=== PATIENT | male | born 1950 | race Caucasian/White ===

== ENCOUNTER 2019-09-07 02:18 | Emergency (ER) | payer MEDICARE, OTHER, SELFPAY ==
--- NOTE | ~2019-09-07 | CT_ITS ---
EXAMINATION: XR abdomen/kub 1V, CT abdomen pelvis wo con DATE: 09/07/2019 02:56 INDICATION: Nephrolithiasis presenting with left flank pain. TECHNIQUE: 1. Computed tomography (CT) of the abdomen and pelvis was performed without intravenous contrast. Aut omated exposure control and iterative reconstruction technique were employed. The dose-length product was 350.83 mGy-cm. 2. Supine AP view of the abdomen and pelvis were obtained. COMPARISON: CT dated 06/21/2015 FINDINGS: CT: Lung bases are clear. Heart size is normal. No pericardial or pleural effusion. Median sternotomy and coronary artery bypass grafting. There is also stenting along the right coronary artery. Liver, gall bladder, spleen, pancreas and bilateral adrenal glands are normal. There is moderate colonic divertic ulosis with a sigmoid predominance. There is no adjacent inflammatory change to suggest diverticulit is. Small bowel and appendix are normal. Small fat-containing left inguinal hernia. No free intraperi toneal gas or fluid. No pathologically enlarged abdominal or pelvic lymphadenopathy. There is calcifi ed atherosclerosis of the aorta and many of the other arteries. Mild lumbar dextrocurvature with mild spondylosis. Left iliac bone island. Couple 1-2 mm nonobstructing stones in the right kidney. 1 mm stone at the upper pole of the left kid cintia. 3 mm at least partially obstructing stone at the distal left ureter approximately 2 cm from the ureterovesicular junction with mild left hydroureteronephrosis. Bladder is normal. KUB: The previously noted nephrolithiasis is unable to be clearly distinguished on the plain radiographs l ikely due to small size of the stones as well as the superimposed multiple pattern of gas and stool i n the colon. Multiple phleboliths in the pelvis. IMPRESSION: 1. 3 mm at least partially obstructing distal left ureteral stone with mild left hydroureteronephrosi s. Nonobstructing right nephrolithiasis. 2. Small fat-containing left inguinal hernia with change of likely prior inguinal hernia repair. Reviewed, dictated and finalized at location A. IMPRESSION: 1. 3 mm at least partially obstructing distal left ureteral stone with mild lef t hydroureteronephrosis. Nonobstructing right nephrolithiasis. 2. Small fat-containing left inguinal hernia with change of likely prior inguin al hernia repair.
[2019-09-07 02:24] VITALS: BP 172/88; PULSE 52; RESP 20; TEMP 35.8; O2SAT 99
--- NOTE | 2019-09-07 02:28 | ED.ABDPAIN ---
HPI - Abdominal Pain General Chief Complaint: Abdominal Pain Stated Complaint: kidney stone Time Seen by Provider: 09/07/19 02:23 Source: patient and RN notes reviewed Mode of arrival: other Limitations: no limitations History of Present Illness HPI narrative: Pt is a 68 y/o male who presents to the ED with c/o 5/10 left flank pain that radiates to his left testicle that began an hour ago. Pt states that his sx woke him up from his sleep. Pt has a hx of kidney stones and he states his last kidney stone was about 1.5 years ago. Pt denies taking any pain medication. Pt last urinated [employer]. Pt saw a urologist at [place] for his last kidney stone, but he denies seeing a urologist consistently. Pt denies nausea, vomiting, fever, and testicular swelling. Pt is a taking Plavix. MD elicited complaint: flank pain Pertinent past history: kidney stones and myocardial infarction Onset (ago): hour(s) (1) Pain Consistency: constant Location: L flank Severity: moderate Pain scale (0-10): 5 Radiation: other (left testicle) Related Data Allergies Allergy/AdvReac Type Severity Reaction Status Date / Time mercury (elemental) Allergy Unknown Verified 11/04/16 21:13 Review of Systems Review of Systems: All systems reviewed & are unremarkable except as noted in HPI and below Constitutional: Constitutional: Denies fever(s) Gastrointestinal: Gastrointestinal: Denies nausea and Denies vomiting Genitourinary: Genitourinary: Reports flank pain (left, radiates to his left testicle) and Denies scrotal swelling PMFSH Past Medical History Medical History (Updated 09/07/19 @ 03:25 by Liliane Weber MD) GERD (gastroesophageal reflux disease) History of torn meniscus of left knee Hyperlipidemia Inguinal hernia Kidney stone Myocardial infarction Surgical History Surgical History (Updated 09/07/19 @ 02:45 by Jaclyn Do) H/O inguinal hernia repair History of cardiac catheterization History of orthopedic surgery left thumb revision, left knee meniscus repair Hx of CABG Status post carotid surgery Social History Social History (Updated 09/07/19 @ 02:46 by Jaclyn Do) Smoking status: Never smoker Exam Narrative: Exam Narrative: GENERAL: Well-appearing, well-nourished, and in no acute distress. HEAD: Normocephalic, atraumatic EYES: PERRLA and EOMI, conjunctiva clear without discharge THROAT:Mucous membranes moist, NECK: Supple, without lymphadenopathy or mass RESPIRATORY: No respiratory distress, Airway patent, Respirations non-labored, Clear to auscultation without rales, rhonchi or wheeze HEART: Regular rate and rhythm. No murmur heard. Normal peripheral pulses. ABDOMEN: Soft, LLQ tenderness, nondistended, normal active bowel sounds. No masses. No rebound or guarding, No organomegaly. EXTREMITIES: No edema, normal strength with full range of motion. SKIN: Warm, dry, normal color without rash NEURO: Alert and oriented x3. CN 2-12 grossly intact. No focal deficits. PSYCH: Normal mood and affect. : Testes: Testes normal Back/Spine/Pelvis: Back: no CVA tenderness Course Reevaluation(s) Reevaluation #1: I have discsused with patient that CT shows small distal stone. he will be given flomax. Date: 09/07/19 Time: 03:21 Vital Signs Vital signs: Vital Signs Temperature 96.5 F L 09/07/19 02:24 Pulse Rate 52 L 09/07/19 02:24 Respiratory Rate 20 09/07/19 02:24 Blood Pressure 172/88 H 09/07/19 02:24 Pulse Oximetry 99 09/07/19 02:24 Temperature 96.5 F L 09/07/19 02:24 Pulse Rate 61 09/07/19 03:37 Respiratory Rate 17 09/07/19 03:37 Blood Pressure 156/80 H 09/07/19 03:37 Pulse Oximetry 99 09/07/19 03:37 MDM - Abdominal Pain Differential Diagnosis Differential diagnosis: Likely diverticulitis, small bowel obstruction and other (renal colic) Lab Data Attestation: I reviewed the patient's lab results. Result diagrams: 09/07/19 02:33 09/07/19 02:33
[2019-09-07 02:42] LABS: Basophils Absolute Auto 0.1 K/mm3 (0.0-0.1); Basophils Percent Auto 1.1 % (0.2-1.2); Eosinophils Absolute Auto 0.2 K/mm3 (0-0.3); Hematocrit 46.6 % (42.0-52.0); Hemoglobin 15.4 g/dL (14.0-18.0); Immature Granulocyte Absolute 0.03 K/mm3 (0.00-0.031); Immature Granulocyte Percent A 0.7 % (0-0.5); Lymphocytes Absolute Auto 1.59 K/mm3 (0.9-3.2); Lymphocytes Percent Auto 34.9 % (18.3-44.2); Mean Corpuscular Hemoglobin 30.6 pg (26-34); Mean Corpuscular Volume 92.5 fl (80-100); Mean Platelet Volume 9.5 fl (7.4-10.4); Monocytes Absolute Auto 0.6 K/mm3 (0.1-0.6); Monocytes Percent Auto 13.6 % (2.6-8.5); Neutrophils Absolute Auto 2.1 K/mm3 (1.3-6.7); Neutrophils Percent Auto 45.7 % (45.5-73.1); Platelet Count Result 236 k/mm3 (150-375); Red Blood Count 5.04 M/mm3 (4.6-6.20); Red Cell Distribution Width 13.2 % (11.5-14.5); White Blood Count 4.6 K/mm3 (4.5-10.0)
[2019-09-07 02:53] LABS: Blood Urea Nitrogen 21 mg/dL (9-20); Calcium 9.7 mg/dL (8.4-10.2); Carbon Dioxide 33 mmol/L (22-30); Chloride 102 mmol/L (98-107); Estimated CRCL calculation 58 ml/min; Estimated Glomerular Filt Rate > 60; Glucose 93 mg/dL (75-110); Potassium 3.7 mmol/L (3.4-5.0); Sodium 139 mmol/L (137-145)
[2019-09-07 03:16] LABS: Add Urine Microscopic? YES; Appearance Urine Cloudy (Clear); Bacteria Urine Trace /hpf; Bilirubin Urine Negative (Negative); Blood Urine 3+ (Negative); Calcium Oxalate Crystals Urine Present /hpf; Color Urine Yellow (Yellow); Glucose Urine UA Negative (Negative); Ketones Urine Negative (Negative); Leukocyte Esterase Ur Negative LEU/UL (Negative); Mucus Urine Few /lpf; Nitrate Urine Negative (Negative); Protein Urine 1+ mg/dL (Negative); RBC Urine >75 /hpf (0-2); Specific Grav Ur 1.028 (1.001-1.035); Urobilinogen Urine Negative mg/dL (<2.0)
[2019-09-07] MEDS: TAMSULOSIN HCL 0.4 MG CAPSULE PO (03:36)
[2019-09-07 03:37] VITALS: BP 156/80; PULSE 61; RESP 17; O2SAT 99
== END 2019-09-07 03:37 | disposition home or self-care (01) ==
PROVIDERS: Emergency Provider General Practice
DX: N13.2 Hydronephrosis with renal and ureteral calculous obstruction (principal); I25.2 Old myocardial infarction; K21.9 Gastro-esophageal reflux disease without esophagitis; E78.5 Hyperlipidemia, unspecified; I25.10 Atherosclerotic heart disease of native coronary artery without angina pectoris; Z87.442 Personal history of urinary calculi; Z79.02 Long term (current) use of antithrombotics/antiplatelets; Z95.1 Presence of aortocoronary bypass graft
CPT/HCPCS: 36415; 74018; 74176; 80048; 81001; 85025; 87086; 96365; 99284; A9270; J0131

== ENCOUNTER 2020-02-02 13:38 | Emergency (ER) | payer MEDICARE, OTHER, SELFPAY ==
--- NOTE | ~2020-02-02 | CT_ITS ---
EXAMINATION: CT abdomen pelvis w con EXAM DATE: 02/02/2020 14:56 INDICATION: Generalized abdominal pain, symptoms one week. TECHNIQUE: Spiral CT of the abdomen and pelvis was performed following intravenous injection of 100 m L Omnipaque 350. Axial, coronal and sagittal images were reviewed. The dose-length product (DLP) fo r this examination was 381.32 mGy-cm. The exposure was tailored according to patient size (auto mA e xposure control), and iterative reconstruction (ASIR) was used as additional dose reduction technique . Comparison is made to prior examination from 09/07/2019. FINDINGS: The liver, spleen, adrenal glands and pancreas are unremarkable. Gallbladder is unremarkab le. No biliary obstruction. Portal and splenic veins are patent. Kidneys enhance symmetrically. T here is no hydronephrosis. The prostate is unremarkable. The bladder is unremarkable. There is no retroperitoneal or pelvic lymphadenopathy. There is moderate scattered arteriosclerotic disease. The appendix is normal. The stomach and small bowel are unremarkable. There is mild sigmoid colonic diverticulosis. There is no adjacent inflammatory change to suggest diverticulitis. No free intra peritoneal gas. The heart is normal in size. There are no pericardial or pleural effusions. The l naveen bases are unremarkable. There are no osteoblastic or osteolytic lesions identified. Sternotomy w ires. Mild lumbar dextroscoliosis. Previously seen distal left ureteral stone has passed. IMPRESSION: 1. No acute intra-abdominal findings. 2. Extensive colonic diverticulosis. Reviewed, dictated and finalized at location B.
[2020-02-02 13:45] VITALS: BP 144/66; PULSE 65; RESP 18; TEMP 36.9; O2SAT 96
[2020-02-02 14:08] LABS: Eosinophils Absolute Auto 0.2 K/mm3 (0-0.3); Eosinophils Percent Auto 5.4 % (0-4.4); Hematocrit 42.7 % (42.0-52.0); Hemoglobin 15.1 g/dL (14.0-18.0); Immature Granulocyte Absolute 0.02 K/mm3 (0.00-0.031); Immature Granulocyte Percent A 0.5 % (0-0.5); Lymphocytes Absolute Auto 0.92 K/mm3 (0.9-3.2); Lymphocytes Percent Auto 22.6 % (18.3-44.2); Mean Corpuscular HGB Conc 35.4 g/dl (32-36); Mean Corpuscular Volume 87.7 fl (80-100); Mean Platelet Volume 9.7 fl (7.4-10.4); Monocytes Absolute Auto 0.4 K/mm3 (0.1-0.6); Monocytes Percent Auto 9.6 % (2.6-8.5); Neutrophils Absolute Auto 2.5 K/mm3 (1.3-6.7); Neutrophils Percent Auto 60.9 % (45.5-73.1); Platelet Count Result 178 k/mm3 (150-375); Red Blood Count 4.87 M/mm3 (4.6-6.20); White Blood Count 4.1 K/mm3 (4.5-10.0)
--- NOTE | 2020-02-02 14:14 | ED.GENADULT ---
HPI - General Adult General Chief complaint: Abdominal Pain Stated complaint: abd pain Time Seen by Provider: 02/02/20 13:51 Source: patient History of Present Illness HPI narrative: Patient is a 69 y/o male complaining of periumbilical abdominal pain for about 1 week. He states that pain is aching in nature with no radiation. He currently rates his pain as 2/10. He states that pain is usually mild in the morning and gets worse later during the day. He took Aciphex without relief. He has no vomiting or diarrhea. Related Data Allergies Allergy/AdvReac Type Severity Reaction Status Date / Time mercury (elemental) Allergy Unknown Itching Verified 02/02/20 13:52 Review of Systems Constitutional: Constitutional: Denies chills, Denies fever(s), Denies headache(s) and Denies weakness Eyes: Eyes: Denies blurry vision ENT: Denies headache(s) and Denies neck pain Cardiovascular: Cardiovascular: Denies chest pain and Denies dyspnea Respiratory: Respiratory: Denies cough and Denies dyspnea Gastrointestinal: Gastrointestinal: Reports abdominal pain, Denies diarrhea, Denies nausea and Denies vomiting Genitourinary: Genitourinary: Denies hematuria and Denies dysuria Musculoskeletal: Musculoskeletal: Denies back pain and Denies neck pain Neurologic: Denies headache(s) and Denies weakness PMFSH Past Medical History Medical History GERD (gastroesophageal reflux disease) History of torn meniscus of left knee Hyperlipidemia Inguinal hernia Kidney stone Myocardial infarction Surgical History Surgical History H/O inguinal hernia repair History of cardiac catheterization History of orthopedic surgery left thumb revision, left knee meniscus repair Hx of CABG Status post carotid surgery Social History Social History Smoking status: Never smoker Gender identity (if verbalized by the patient): Male Exam Const: General: no acute distress and well developed Orientation/consciousness: oriented to person, oriented to place, oriented to time and patient oriented x3 HENMT: Head: normocephalic Ears: external ears normal General nose exam: Normal external nose present Eyes: General: appearance normal, both eyes and all related structures Conjunctivae: conjunctivae normal Neck: Neck: normal visual inspection and full ROM Chest: Chest palpation & inspection: normal inspection of the chest and no tenderness Resp: Effort & Inspection: normal respiratory effort Auscultation: clear to auscultation bilaterally Cardio: Rate: regular rate Rhythm: regular rhythm GI: GI Palp: No abdominal tenderness and Yes Soft to palpation Skin: General skin exam: normal color and turgor normal Neuro: General: oriented to person, oriented to place, oriented to time and patient oriented x3 Cognition (Neuro): normal cognition Extrem: General: normal to inspection, full ROM and no pedal edema Psych: Appearance: grossly normal Mental Status: mental status grossly normal Affect: normal affect Course Vital Signs Vital signs: Vital Signs Temperature 36.9 C 02/02/20 13:45 Pulse Rate 65 02/02/20 13:45 Respiratory Rate 18 02/02/20 13:45 Blood Pressure 144/66 H 02/02/20 13:45 Pulse Oximetry 96 02/02/20 13:45 Temperature 36.9 C 02/02/20 13:45 Pulse Rate 65 02/02/20 13:45 Respiratory Rate 18 02/02/20 13:45 Blood Pressure 144/66 H 02/02/20 13:45 Pulse Oximetry 96 02/02/20 13:45 Medical Decision Making Vital Signs Vital Signs: Vital Signs Temperature 36.9 C 02/02/20 13:45 Pulse Rate 65 02/02/20 13:45 Respiratory Rate 18 02/02/20 13:45 Blood Pressure 144/66 H 02/02/20 13:45 Pulse Oximetry 96 02/02/20 13:45 Temperature 36.9 C 02/02/20 13:45 Pulse Rate 65 02/02/20 13:45 Respiratory Rate 18 02/02/20 13:45 Blood Pressure
[2020-02-02 14:20] LABS: Alanine Aminotransferase 12 U/L (4-50); Albumin Level 4.3 g/dL (3.5-5.1); Alkaline Phosphatase 66 U/L (38-126); Anion Gap 7 mmol/L (8-16); Aspartate Amino Transferase 24 U/L (17-59); Bilirubin,Total 0.5 mg/dL (0.2-1.3); Blood Urea Nitrogen 19 mg/dL (9-20); Calcium 8.8 mg/dL (8.4-10.2); Carbon Dioxide 26 mmol/L (22-30); Chloride 104 mmol/L (98-107); Estimated Glomerular Filt Rate > 60; Glucose 94 mg/dL (75-110); Lipase 146 U/L (23-300); Potassium 3.9 mmol/L (3.4-5.0); Sodium 137 mmol/L (137-145)
== END 2020-02-02 15:33 | disposition home or self-care (01) ==
PROVIDERS: Emergency Provider Emergency Medicine; PCP Family Medicine
DX: R10.33 Periumbilical pain (principal); K21.9 Gastro-esophageal reflux disease without esophagitis; E78.5 Hyperlipidemia, unspecified; I25.2 Old myocardial infarction; Z95.1 Presence of aortocoronary bypass graft
CPT/HCPCS: 36415; 74177; 80053; 83690; 85025; 99284; Q9967

== ENCOUNTER 2020-08-20 20:42 | Observation (INO) | payer MEDICARE, OTHER, SELFPAY ==
--- NOTE | ~2020-08-20 | XR_ITS ---
EXAMINATION: XR chest 2V DATE: 08/20/2020 21:13 INDICATION: Chest pain TECHNIQUE: PA and lateral views of the chest are obtained. COMPARISON: 02/17/2018 FINDINGS: The lungs are free of acute opacities. There is no pleural effusion or pneumothorax. The he art size is normal. Median sternotomy wires and mediastinal surgical clips are seen, likely from prio r coronary artery bypass grafting. There is mild thoracic spondylosis. IMPRESSION: 1. No acute cardiopulmonary abnormality. Reviewed, dictated and finalized at location A. [employer]
[2020-08-20 20:47] VITALS: BP 181/79; PULSE 55; RESP 14; TEMP 36.6; O2SAT 97
--- NOTE | 2020-08-20 20:55 | ECG_ITS ---
Measurements Intervals [place] Rate: 56 P: 37 HI: 156 QRS: -46 QRSD: 141 T: -2 QT: 447 QTc: 434 Interpretive Statements SINUS BRADYCARDIA RIGHT BUNDLE BRANCH BLOCK LEFT ANTERIOR FASCICULAR BLOCK ABNORMAL ECG Electronically Signed On 08-21-2020 7:34:00 [employer] by Krystian Hinojosa D.O.
[2020-08-20] MEDS: ASPIRIN 81 MG CHEWABLE TABLET 324 MG PO (20:57)
--- NOTE | 2020-08-20 21:00 | ED.CHESTPAIN ---
HPI - Chest Pain General Chief Complaint: Chest Pain Stated Complaint: chest pain Time Seen by Provider: 08/20/20 20:49 Source: patient Mode of arrival: ambulatory Limitations: no limitations History of Present Illness HPI narrative: Patient is a 69-year-old male complaining of chest pain, described as tightness, burning, midsternal, rating across his chest, 6 out of 10, started today. Patient denies any shortness of breath, abdominal pain, nausea, vomiting, diaphoresis, fever or chills. Patient has a history of coronary disease, CABG and stents. Related Data Home Medications Medication Instructions Recorded Confirmed aspirin 81 mg tablet,delayed 81 mg PO DAILY 02/29/20 release clopidogrel 75 mg tablet 75 mg PO DAILY 02/29/20 evolocumab 140 mg/mL subcutaneous 140 mg SUB-Q ONCE 02/29/20 02/29/20 pen injector folic acid 800 mcg tablet 0.8 mg PO DAILY 02/29/20 multivitamin 1 tablet PO DAILY 02/29/20 rabeprazole 20 mg tablet,delayed 20 mg PO DAILY 02/29/20 release sildenafil 100 mg tablet 100 mg PO DAILY PRN 02/29/20 Allergies Allergy/AdvReac Type Severity Reaction Status Date / Time mercury (elemental) Allergy Unknown Itching Verified 02/29/20 10:41 Review of Systems Review of Systems: All systems reviewed & are unremarkable except as noted in HPI and below Constitutional: Constitutional: Denies body ache(s), Denies chills, Denies excessive sweating, Denies fatigue, Denies fever(s), Denies headache(s), Denies lethargy, Denies malaise, Denies weakness and Denies weight loss Eyes: Eyes: Denies blurry vision, Denies change in vision and Denies loss of vision ENT: Denies dizziness, Denies ear discharge, Denies headache(s), Denies lip swelling, Denies epistaxis, Denies nasal congestion, Denies neck pain, Denies throat swelling and Denies tongue swelling Cardiovascular: Cardiovascular: Denies diaphoresis, Denies rapid heart rate, Denies edema, Denies irregular heart rhythm, Denies lightheadedness, Denies palpitations, Denies dyspnea and Denies dyspnea on exertion Respiratory: Respiratory: Denies chest congestion, Denies cough, Denies hemoptysis, Denies dyspnea and Denies dyspnea on exertion Gastrointestinal: Gastrointestinal: Denies abdominal pain, Denies melena, Denies hematochezia, Denies diarrhea, Denies nausea, Denies vomiting and Denies hematemesis Musculoskeletal: Musculoskeletal: Denies abnormal gait, Denies deformity, Denies joint swelling, Denies limited range of motion, Denies neck pain and Denies numbness Neurologic: Denies Abnormal speech present, Denies abnormal gait, Denies confusion, Denies dizziness, Denies headache(s), Denies focal weakness, Denies loss of vision, Denies numbness, Denies Other visual disturbances, Denies Sensory deficit (Neuro) and Denies weakness Psychiatric: Psychiatric: Denies confusion, Denies depression, Denies auditory hallucinations, Denies homicidal ideation and Denies suicidal ideation Endocrine: Endocrine: Denies cold intolerance, Denies excessive sweating, Denies fatigue, Denies heat intolerance and Denies palpitations Hematologic/Lymphatic: Hematologic/Lymphatic: Denies easy bleeding and Denies easy bruising Allergic/Immunologic: Allergic/Immunologic: Denies lip swelling, Denies throat swelling and Denies tongue swelling PMFSH Past Medical History Medical History CAD (coronary artery disease) GERD (gastroesophageal reflux disease) History of TIA (transient ischemic attack) History of torn meniscus of left knee Hyperlipidemia Inguinal hernia Insomnia Kidney stone Myocardial infarction Surgical History Surgical History H/O inguinal hernia repair History of cardiac catheterization History of knee replacement procedure of left knee History of orthopedic surgery left thumb revision, left knee meniscus repair Hx of CABG Status post carotid surgery Famil
[2020-08-20 21:01] VITALS: BP 141/69; PULSE 57; RESP 15
[2020-08-20 21:10] LABS: Basophils Absolute Auto 0.1 K/mm3 (0.0-0.1); Eosinophils Absolute Auto 0.2 K/mm3 (0-0.3); Eosinophils Percent Auto 3.3 % (0-4.4); Hematocrit 43.2 % (42.0-52.0); Hemoglobin 14.7 g/dL (14.0-18.0); Immature Granulocyte Absolute 0.02 K/mm3 (0.00-0.031); Immature Granulocyte Percent A 0.4 % (0-0.5); Lymphocytes Absolute Auto 1.42 K/mm3 (0.9-3.2); Lymphocytes Percent Auto 27.7 % (18.3-44.2); Mean Corpuscular Hemoglobin 31.1 pg (26-34); Mean Corpuscular Volume 91.3 fl (80-100); Mean Platelet Volume 9.5 fl (7.4-10.4); Monocytes Absolute Auto 0.7 K/mm3 (0.1-0.6); Monocytes Percent Auto 13.8 % (2.6-8.5); Neutrophils Absolute Auto 2.8 K/mm3 (1.3-6.7); Neutrophils Percent Auto 53.8 % (45.5-73.1); Platelet Count Result 207 k/mm3 (150-375); Red Blood Count 4.73 M/mm3 (4.6-6.20); White Blood Count 5.1 K/mm3 (4.5-10.0)
[2020-08-20 21:14] LABS: INR 0.9; Prothrombin Time 12.2 Seconds (11.1-14.7)
[2020-08-20 21:15] LABS: Partial Thromboplastin Time 27.4 SECONDS (22.3-36.8)
[2020-08-20 21:16] VITALS: BP 137/88; PULSE 55; RESP 15
[2020-08-20 21:24] LABS: Anion Gap 6 mmol/L (8-16); Blood Urea Nitrogen 15 mg/dL (9-20); Carbon Dioxide 31 mmol/L (22-30); Chloride 104 mmol/L (98-107); Estimated CRCL calculation 81 ml/min; Estimated Glomerular Filt Rate > 60; Glucose 114 mg/dL (75-110); Potassium 3.6 mmol/L (3.4-5.0); Sodium 141 mmol/L (137-145)
[2020-08-20 21:36] LABS: Troponin I < 0.012 ng/mL (0.000-0.034)
[2020-08-20] MEDS: NITROGLYCERIN OINTMENT 1 INCH DOSE TRANSDERM (22:54)
[2020-08-20 23:01] VITALS: BP 124/51; PULSE 48; RESP 15; O2SAT 97
[2020-08-21] VITALS (12 sets, daily range): BP systolic 109–155; BP diastolic 56–85; PULSE 45–74; RESP 16; TEMP 36.1–36.4; O2SAT 98–99; BMI 24.6
--- NOTE | 2020-08-21 00:37 | ADMGEN ---
This patient, Waylon Jimenez, was admitted to IMU Room 202-01 on 08/21/20 at 0017. Patient/family oriented to hospital policies and general routines including ID bracelet, bed and alarms, visiting hours, pain management, procedures, bathroom and other care routines, personal items, smoking policy, room service/diet, and visiting hours. Information on how to activate the Rapid Response Team has been discussed. Patient/Family are encouraged to report perceived risks to care and to ask questions if they do not understand what they are told or what they should do.
[2020-08-21 00:38] LABS: Troponin I < 0.012 ng/mL (0.000-0.034)
[2020-08-21 03:50] LABS: Troponin I < 0.012 ng/mL (0.000-0.034)
[2020-08-21] MEDS: ACETAMINOPHEN 500 MG TABLET 1000 MG PO (08:27)
--- NOTE | 2020-08-21 09:57 | PM.IMHP ---
H&P: HPI History of Present Illness Date/Time: 08/21/20 09:57 Chief Complaint: chest pain Narrative: Waylon Jimenez is a 69 year old male here with chest pain described as tightness, burning, midsternal, across his chest. no sob, abdominal pain ,nausea, vomtiign, diaphoreiss, fever, chills. he has hx of coronary artery disease, CABG and stents. [facility] Past Medical History Medical History CAD (coronary artery disease) GERD (gastroesophageal reflux disease) History of TIA (transient ischemic attack) History of torn meniscus of left knee Hyperlipidemia Inguinal hernia Insomnia Kidney stone Myocardial infarction Surgical History Surgical History H/O inguinal hernia repair History of cardiac catheterization History of knee replacement procedure of left knee History of orthopedic surgery left thumb revision, left knee meniscus repair Hx of CABG Status post carotid surgery Family History Family History Father Heart disease Diverticulitis Dementia Sibling Cancer of unknown origin Down syndrome Mother Cancer Social History Social History Smoking packs per day: 1 Smoking cigarettes per day: 20.0 Years smoked: 20 Smoking pack-years: 20.00 Smoking status: Former smoker Tobacco type: cigarettes Second hand tobacco smoke exposure: No Smoking end date: 06/17/90 Alcohol intake: former Drinks per week: 10 Substance use: never Substance use type: does not use Gender identity (if verbalized by the patient): Male Sexual Orientation (if Verbalized by the Patient): Straight or Heterosexual Spiritual care concerns: No Meds Home Medications and Allergies Home Medications Medication Instructions Recorded Confirmed Type aspirin 81 mg tablet,delayed 81 mg PO DAILY 02/29/20 08/21/20 History release clopidogrel 75 mg tablet 75 mg PO .THREE TIMES WEEKLY 02/29/20 08/21/20 History evolocumab 140 mg/mL subcutaneous 140 mg SUB-Q .EVERY 2 WEEKS 02/29/20 08/21/20 History pen injector folic acid 800 mcg tablet 0.8 mg PO DAILY 02/29/20 08/21/20 History multivitamin 1 tablet PO DAILY 02/29/20 08/21/20 History rabeprazole 20 mg tablet,delayed 20 mg PO DAILY 02/29/20 08/21/20 History release sildenafil 100 mg tablet 100 mg PO DIRECTED PRN 02/29/20 08/21/20 History tamsulosin 0.4 mg PO DAILY 08/21/20 08/21/20 History Allergies Allergy/AdvReac Type Severity Reaction Status Date / Time mercury (elemental) Allergy Unknown Itching Verified 08/21/20 01:03 thimerosal Allergy Unknown Verified 08/21/20 01:03 Vital Signs Vital Signs - 24 hr 08/20/20 20:47 08/20/20 21:01 08/20/20 21:16 Temperature 97.8 F Pulse Rate 55 L 57 L 55 L Respiratory Rate 14 15 15 Blood Pressure 181/79 H 141/69 H 137/88 Pulse Oximetry 97 08/20/20 23:01 08/21/20 00:21 08/21/20 00:24 Temperature 96.9 F L Pulse Rate 48 L 47 L 74 Respiratory Rate 15 16 Blood Pressure 124/51 L 155/85 H Pulse Oximetry 97 98 08/21/20 00:25 08/21/20 02:00 08/21/20 03:05 Temperature 97 F L Pulse Rate 74 54 L 45 L Respiratory Rate 16 16 Blood Pressure 109/56 L Pulse Oximetry 98 99 08/21/20 03:07 08/21/20 04:00 08/21/20 05:33 Temperature Pulse Rate 45 L 51 L 53 L Respiratory Rate 16 Blood Pressure Pulse Oximetry 99 08/21/20 07:59 08/21/20 08:54 Temperature 97.5 F L Pulse Rate 72 Respiratory Rate 16 Blood Pressure 115/62 Pulse Oximetry 98 98 H&P: Results Labs Labs: Short CBC 08/20/20 Range/Units 20:58 WBC 5.1 (4.5-10.0) K/mm3 Hgb 14.7 (14.0-18.0) g/dL Hct 43.2 (42.0-52.0) % Plt Count 207 (150-375) k/mm3 BMP 08/20/20 20:58 Sodium 141 Potassium 3.6 Chloride 104 Carbon Dioxide 31 H BUN 15 Creatinine 0.7
--- NOTE | 2020-08-21 10:24 | PM.SD2 ---
Same Day Admit/Disch: HPI History of Present Illness Chief complaint: chest pain Narrative: Waylon Jimenez is a 69 year old male who presents to the ED last night with lower chest and upper abdominal pain. The pain was achy and did not radiate. he has not had any pains like those for a while. no other associated symptosm with diaphoreiss, nausea, vomitign, shortness of breath. He does state he has gerd and also was working on yard cleaning this past week or so. he also reports working on his mother's car?. He states by the time he came to the ED the chest pain has already dissipated. He has been put on nitro paste which caused him to have headache. no fever, chills, sob, abdominal pain, nausea, vomiting. [facility] Past Medical History Medical History CAD (coronary artery disease) GERD (gastroesophageal reflux disease) History of TIA (transient ischemic attack) History of torn meniscus of left knee Hyperlipidemia Inguinal hernia Insomnia Kidney stone Myocardial infarction Surgical History Surgical History H/O inguinal hernia repair History of cardiac catheterization History of knee replacement procedure of left knee History of orthopedic surgery left thumb revision, left knee meniscus repair Hx of CABG Status post carotid surgery Family History Family History Father Heart disease Diverticulitis Dementia Sibling Cancer of unknown origin Down syndrome Mother Cancer Social History Social History Smoking packs per day: 1 Smoking cigarettes per day: 20.0 Years smoked: 20 Smoking pack-years: 20.00 Smoking status: Former smoker Tobacco type: cigarettes Second hand tobacco smoke exposure: No Smoking end date: 06/17/90 Alcohol intake: former Drinks per week: 10 Substance use: never Substance use type: does not use Gender identity (if verbalized by the patient): Male Sexual Orientation (if Verbalized by the Patient): Straight or Heterosexual Spiritual care concerns: No Same Day Admit/Disch: Med Pre-admit Medications Home Medications Medication Instructions Recorded Confirmed Type aspirin 81 mg tablet,delayed 81 mg PO DAILY 02/29/20 08/21/20 History release clopidogrel 75 mg tablet 75 mg PO .THREE TIMES WEEKLY 02/29/20 08/21/20 History evolocumab 140 mg/mL subcutaneous 140 mg SUB-Q .EVERY 2 WEEKS 02/29/20 08/21/20 History pen injector folic acid 800 mcg tablet 0.8 mg PO DAILY 02/29/20 08/21/20 History multivitamin 1 tablet PO DAILY 02/29/20 08/21/20 History rabeprazole 20 mg tablet,delayed 20 mg PO DAILY 02/29/20 08/21/20 History release sildenafil 100 mg tablet 100 mg PO DIRECTED PRN 02/29/20 08/21/20 History tamsulosin 0.4 mg PO DAILY 08/21/20 08/21/20 History Exam Const: General: comfortable and in distress HENMT: General nose exam: no epistaxis Mouth: Yes moist mucous membranes Eyes: Sclera: sclerae normal and normal sclerae Pupils: Equal, round and reactive pupils present Neck: Thyroid: thyroid normal Lymphatic: lymphadenopathy Resp: Effort & Inspection: normal respiratory effort Auscultation: no crackles, no rales and no rhonchi Cardio: Rate: regular rate Rhythm: regular rhythm Heart sounds: no gallops, no murmurs and no rubs GI: Inspection: non-distended GI Palp: Yes Soft to palpation Auscultation: normal bowel sounds : Male General Exam: No erythema and No tenderness Skin: General skin exam: normal color, no rashes or lesions noted and no erythema Neuro: Speech: normal speech Motor exam (neuro): 5/5 motor strength present throughout and Normal motor muscle tone present throughout Extrem: General: normal to inspection DS: Data Data Completed and Pending Labs on day of discharge: Labs from last 24 hours 0
== END 2020-08-21 11:02 | disposition home or self-care (01) ==
LOC: ANHED 22:52 → ANHIMU 23:02
PROVIDERS: Admitting Provider Internal Medicine; Emergency Provider Emergency Medicine; PCP Family Medicine; Visit Provider Internal Medicine
DX: R07.9 Chest pain, unspecified (principal); K21.9 Gastro-esophageal reflux disease without esophagitis; I25.10 Atherosclerotic heart disease of native coronary artery without angina pectoris; Z86.73 Personal history of transient ischemic attack (TIA), and cerebral infarction without residual deficits; E78.5 Hyperlipidemia, unspecified; I25.2 Old myocardial infarction; Z96.652 Presence of left artificial knee joint; Z87.891 Personal history of nicotine dependence; Z95.1 Presence of aortocoronary bypass graft; Z95.5 Presence of coronary angioplasty implant and graft
CPT/HCPCS: 36415; 71046; 80048; 84484; 85025; 85610; 85730; 93005; 99285; A9270; G0378

== ENCOUNTER 2020-12-17 09:05 | Emergency (ER) | payer MEDICARE, OTHER, SELFPAY ==
--- NOTE | ~2020-12-17 | XR_ITS ---
EXAMINATION: XR lumbar spine 2-3V DATE: 12/17/2020 10:15 INDICATION: Low back pain TECHNIQUE: Anteroposterior and lateral views of the lumbar spine, and cone-down lateral view of the l umbosacral junction were obtained. COMPARISON: 05/05/2018, 10/02/2014 FINDINGS: Lumbar dextrocurvature is noted. There is no fracture. There is unchanged severe loss of in tervertebral disc space height at L2-3. Mild degenerative loss of intervertebral disc space height is present at L3-4. Vertebral body alignment is maintained. Small degenerative osteophytes project from the anterior endplates of multiple vertebral bodies. There is mild facet osteoarthritis of the lower lumbar spine. The bowel gas pattern is normal. IMPRESSION: 1. Severe lumbar spondylosis without acute findings or significant interval change. Reviewed, dictated and finalized at location A. IMPRESSION: 1. Severe lumbar spondylosis without acute findings or significant interval andrea nge.
--- NOTE | ~2020-12-17 | XR_ITS ---
EXAMINATION: XR hip RT min 3V w AP pelvis INDICATION: Right hip pain TECHNIQUE: AP view of the pelvis and three views of the right hip are obtained. COMPARISON: None available FINDINGS: Bone alignment is normal. There is no fracture. Calcified atherosclerosis is noted. There i s mild osteoarthritis of the hips. IMPRESSION: 1. No acute osseous abnormality. Reviewed, dictated and finalized at location A.
[2020-12-17 09:11] VITALS: BP 150/73; PULSE 52; RESP 20; TEMP 36.7; O2SAT 97
--- NOTE | 2020-12-17 11:45 | ED.BACK ---
HPI - Back Pain/Injury General Chief Complaint: Back Pain/Injury Stated Complaint: BACK/HIP PAIN Time Seen by Provider: 12/17/20 09:35 Source: patient and RN notes reviewed Mode of arrival: ambulatory Limitations: no limitations History of Present Illness HPI Narrative: Patient 70 years old white male was a dragon a cabinet by a lidia up stair, somebody come to help him and lifted the lidia from the bottom then the lidia and the cabinet tilted and landed on the patient partially, patient denies any head pain, neck pain, chest pain, abdominal pain, upper back pain. Complaining of right lower back pain and right hip pain. The above event occurred at 8 PM yesterday. patient denies bowel dysfunction, bladder dysfunction, altered sensation, focal weakness, or saddle numbness, Related Data Home Medications Medication Instructions Recorded Confirmed clopidogrel 75 mg tablet 75 mg PO .THREE TIMES WEEKLY 02/29/20 08/21/20 rabeprazole 20 mg tablet,delayed 20 mg PO DAILY 02/29/20 08/21/20 release tamsulosin 0.4 mg PO DAILY 08/21/20 08/21/20 paroxetine HCl mg PO 12/17/20 Allergies Allergy/AdvReac Type Severity Reaction Status Date / Time mercury (elemental) Allergy Unknown Itching Verified 12/17/20 09:16 thimerosal Allergy Unknown Verified 12/17/20 09:16 Review of Systems Review of Systems: Narrative: CONSTITUTIONAL: Denies fever, chills, or sweats. EYES: Denies visual changes, redness, or discharge. ENT: Denies rhinorrhea, congestion, sore throat, or otalgia. CARDIOVASCULAR: Denies chest pain, palpitations, or edema. RESPIRATORY: Denies cough or dyspnea. GASTROINTESTINAL: Denies abdominal pain, nausea, vomiting, or diarrhea. GENITOURINARY: Denies dysuria or hematuria. SKIN: Denies rash or itching. MUSCULOSKELETAL: Denies back pain, joint pain, or myalgia. NEUROLOGIC: Denies headache, numbness, or weakness. PSYCHIATRIC: Denies anxiety or depression. [facility] Past Medical History Medical History CAD (coronary artery disease) GERD (gastroesophageal reflux disease) History of TIA (transient ischemic attack) History of torn meniscus of left knee Hyperlipidemia Inguinal hernia Insomnia Kidney stone Myocardial infarction Surgical History Surgical History H/O inguinal hernia repair History of cardiac catheterization History of knee replacement procedure of left knee History of orthopedic surgery left thumb revision, left knee meniscus repair Hx of CABG Status post carotid surgery Family History Family History Father Heart disease Diverticulitis Dementia Sibling Cancer of unknown origin Down syndrome Mother Cancer Social History Social History Smoking packs per day: 1 Smoking cigarettes per day: 20.0 Years smoked: 20 Smoking pack-years: 20.00 Smoking status: Former smoker Tobacco type: cigarettes Second hand tobacco smoke exposure: No Smoking end date: 06/17/90 Alcohol intake: former Drinks per week: 10 Substance use: never Substance use type: does not use Gender identity (if verbalized by the patient): Male Spiritual care concerns: No Exam Narrative: Exam Narrative: General appearance: Well-developed, well-nourished Skin: Normal color Head: Normocephalic, nontraumatic Eyes: Clear conjunctiva ENT: Oropharynx normal, ears normal, nose normal Neck: Supple, nontender Chest and respiratory: Airway patent, no respiratory distress, no accessory muscle use Heart: Regular rate/rhythm Abdomen: Soft, nontender, no organomegaly, quiet bowel sounds Vascular: Normal peripheral pulses, normal capillary refill. Musculoskeletal: Mild tenderness mid lumbar spine, no bruises, no deformity, negative leg raising test, intact ankle and knee reflexes Neurologic: Alert and oriented ?3, TRANSITION ASSISTANT is
[2020-12-17 12:06] VITALS: BP 142/76; PULSE 64; RESP 18; O2SAT 98
== END 2020-12-17 12:07 | disposition home or self-care (01) ==
PROVIDERS: Emergency Provider Emergency Medicine
DX: M54.5 Low back pain (principal); I25.10 Atherosclerotic heart disease of native coronary artery without angina pectoris; E78.5 Hyperlipidemia, unspecified; I25.2 Old myocardial infarction; F17.210 Nicotine dependence, cigarettes, uncomplicated; Z86.73 Personal history of transient ischemic attack (TIA), and cerebral infarction without residual deficits; W20.8XXA Other cause of strike by thrown, projected or falling object, initial encounter
CPT/HCPCS: 72100; 73502; 99284

== ENCOUNTER 2021-09-08 11:52 | Emergency (ER) | payer MEDICARE, OTHER, SELFPAY ==
--- NOTE | ~2021-09-08 | CT_ITS ---
EXAMINATION: CT abdomen pelvis wo con EXAM DATE: 09/08/2021 16:52 INDICATION: Right flank pain. TECHNIQUE: Spiral CT of the abdomen and pelvis was performed without contrast. Axial, coronal and sag ittal images were reviewed. The dose-length product (DLP) for this examination was 199.95 mGy-cm. T he exposure was tailored according to patient size (auto mA exposure control), and iterative reconstr uction (ASIR) was used as additional dose reduction technique. Comparison is made to prior examinatio n from 02/02/2020. FINDINGS: There is 5 mm stone in the distal aspect right ureter, 2 cm from the ureterovesicular junct ion. Mild right hydroureter but no caliectasis. No other right nephrolithiasis. There is a punctate 2 mm left inferior calyceal stone. The prostate is unremarkable. The bladder is unremarkable. The l iver, spleen, adrenal glands and pancreas are unremarkable. Gallbladder is unremarkable. No biliary obstruction. There is no retroperitoneal or pelvic lymphadenopathy. There is moderate scattered a rteriosclerotic disease. The appendix is normal. There is moderate colonic diverticulosis. There is no adjacent inflammatory change to suggest diverticulitis. There is small sliding gastroesophageal hiatal hernia. There is e xpected amount of colonic stool. No free intraperitoneal gas. The heart is normal in size. There are no pericardial or pleural effusions. The lung bases are unremarkable. Mild to moderate chronic compression fracture of L1. IMPRESSION: 1. Right distal ureteral 5 mm stone, mild hydroureter. 2. Small left nephrolithiasis. 3. Moderate colonic diverticulosis. 4. Small hiatal hernia. Reviewed, dictated and finalized at location G.
[2021-09-08 12:04] VITALS: BP 166/79; PULSE 48; RESP 20; TEMP 36.3; O2SAT 97
[2021-09-08 12:15] LABS: Eosinophils Absolute Auto 0.1 K/mm3 (0-0.3); Eosinophils Percent Auto 3.4 % (0-4.4); Hematocrit 44.7 % (42.0-52.0); Hemoglobin 15.1 g/dL (14.0-18.0); Immature Granulocyte Absolute 0.02 K/mm3 (0.00-0.031); Immature Granulocyte Percent A 0.5 % (0-0.5); Lymphocytes Absolute Auto 1.17 K/mm3 (0.9-3.2); Lymphocytes Percent Auto 28.5 % (18.3-44.2); Mean Corpuscular HGB Conc 33.8 g/dl (32-36); Mean Corpuscular Hemoglobin 31.1 pg (26-34); Mean Corpuscular Volume 92.2 fl (80-100); Mean Platelet Volume 9.5 fl (7.4-10.4); Monocytes Absolute Auto 0.5 K/mm3 (0.1-0.6); Monocytes Percent Auto 12.2 % (2.6-8.5); Neutrophils Absolute Auto 2.2 K/mm3 (1.3-6.7); Neutrophils Percent Auto 54.4 % (45.5-73.1); Platelet Count Result 200 k/mm3 (150-375); Red Blood Count 4.85 M/mm3 (4.6-6.20); Red Cell Distribution Width 13.5 % (11.5-14.5); White Blood Count 4.1 K/mm3 (4.5-10.0)
[2021-09-08 12:28] LABS: Alanine Aminotransferase 17 U/L (4-50); Albumin Level 4.5 g/dL (3.5-5.1); Alkaline Phosphatase 76 U/L (38-126); Anion Gap 6 mmol/L (8-16); Aspartate Amino Transferase 26 U/L (17-59); Bilirubin,Total 0.5 mg/dL (0.2-1.3); Blood Urea Nitrogen 19 mg/dL (9-20); Calcium 9.2 mg/dL (8.4-10.2); Carbon Dioxide 29 mmol/L (22-30); Chloride 104 mmol/L (98-107); Estimated CRCL calculation 70 ml/min; Estimated Glomerular Filt Rate > 60; Glucose 115 mg/dL (65-110); Lipase 138 U/L (23-300); Potassium 3.8 mmol/L (3.4-5.0); Sodium 139 mmol/L (137-145)
[2021-09-08 12:34] LABS: Add Urine Microscopic? YES; Appearance Urine Cloudy (Clear); Bacteria Urine Trace /hpf; Bilirubin Urine Negative (Negative); Blood Urine 1+ (Negative); Color Urine Amber (Yellow); Glucose Urine UA Negative (Negative); Ketones Urine Trace mg/dL (Negative); Leukocyte Esterase Ur Negative LEU/UL (Negative); Mucus Urine Rare /lpf; Nitrate Urine Negative (Negative); Protein Urine Negative (Negative); RBC Urine 21-50 /hpf (0-2); Specific Grav Ur 1.026 (1.001-1.035); Urobilinogen Urine Negative mg/dL (<2.0); WBC Urine 0-3 /hpf
[2021-09-08 16:23] VITALS: BP 154/79; PULSE 48; RESP 14; TEMP 36.4; O2SAT 97
[2021-09-08] MEDS: KETOROLAC 30 MG/ML VIAL (*BKC) IM (16:28)
--- NOTE | 2021-09-08 18:04 | ED.GENADULT ---
HPI - General Adult General Chief complaint: Abdominal Pain Stated complaint: abdominal pain Time Seen by Provider: 09/08/21 16:09 History of Present Illness HPI narrative: Patient is a 70-year-old male who presents ER with right-sided abdominal pain. Radiates into his back into his groin/penis. No nausea or vomiting. No urinary frequency urgency or dysuria. No blood in urine. Patient does take some Plavix. Has history of kidney stones and feels like this is not as intense as it has been in the past. No diarrhea or constipation. Due to persistence of pain he is opted for further evaluation. Related Data Home Medications Medication Instructions Recorded Confirmed clopidogrel 75 mg tablet 75 mg PO .THREE TIMES WEEKLY 02/29/20 08/21/20 rabeprazole 20 mg tablet,delayed 20 mg PO DAILY 02/29/20 08/21/20 release tamsulosin 0.4 mg PO DAILY 08/21/20 08/21/20 paroxetine HCl mg PO 12/17/20 Allergies Allergy/AdvReac Type Severity Reaction Status Date / Time mercury (elemental) Allergy Unknown Itching Verified 12/17/20 09:16 thimerosal Allergy Unknown Verified 12/17/20 09:16 Review of Systems Review of Systems: All systems reviewed & are unremarkable except as noted in HPI and below Constitutional: Constitutional: Denies chills and Denies fever(s) Cardiovascular: Cardiovascular: Denies chest pain, Denies rapid heart rate and Denies radiating jaw, neck or arm pain Respiratory: Respiratory: Denies cough, Denies dyspnea and Denies wheezing Gastrointestinal: Gastrointestinal: Reports abdominal pain, Denies nausea and Denies vomiting Genitourinary: Genitourinary: Denies hematuria, Denies dysuria, Denies urinary frequency and Denies urinary incontinence Musculoskeletal: Musculoskeletal: Reports back pain, Denies arthralgias and Denies joint swelling [facility] Past Medical History Medical History CAD (coronary artery disease) GERD (gastroesophageal reflux disease) History of TIA (transient ischemic attack) History of torn meniscus of left knee Hyperlipidemia Inguinal hernia Insomnia Kidney stone Myocardial infarction Surgical History Surgical History H/O inguinal hernia repair History of cardiac catheterization History of knee replacement procedure of left knee History of orthopedic surgery left thumb revision, left knee meniscus repair Hx of CABG Status post carotid surgery Family History Family History Father Heart disease Diverticulitis Dementia Sibling Cancer of unknown origin Down syndrome Mother Cancer Social History Social History Smoking packs per day: 1 Smoking cigarettes per day: 20.0 Years smoked: 20 Smoking pack-years: 20.00 Smoking status: Former smoker Tobacco type: cigarettes Second hand tobacco smoke exposure: No Smoking end date: 06/17/90 Alcohol intake: former Drinks per week: 10 Substance use: never Substance use type: does not use Gender identity (if verbalized by the patient): Male Sexual Orientation (if Verbalized by the Patient): Straight or Heterosexual Spiritual care concerns: No Exam Narrative: GENERAL: Well-appearing, well-nourished, and in no acute distress. HEAD: Normocephalic, atraumatic. CHEST: Clear to auscultation. No respiratory distress. HEART: Regular rate and rhythm. Normal peripheral pulses. ABDOMEN: Soft, nontender, nondistended, no CVA tenderness. EXTREMITIES: Normal range of motion. No edema. SKIN: Warm, dry, no rash. NEURO: Alert and oriented x3. PSYCH: Normal mood and affect. Course Course Emergency Course: Pain improved with Toradol. Informed results. Discharge home with supportive care. Patient has his own urologist they plans to follow-up with however will provide him with the name of our local urology group
[2021-09-08 18:40] VITALS: BP 156/88; PULSE 48; RESP 18; O2SAT 98
== END 2021-09-08 18:44 | disposition home or self-care (01) ==
PROVIDERS: Emergency Provider Emergency Medicine
DX: N13.2 Hydronephrosis with renal and ureteral calculous obstruction (principal); I25.10 Atherosclerotic heart disease of native coronary artery without angina pectoris; E78.5 Hyperlipidemia, unspecified; I25.2 Old myocardial infarction; K21.9 Gastro-esophageal reflux disease without esophagitis; Z86.73 Personal history of transient ischemic attack (TIA), and cerebral infarction without residual deficits; Z87.442 Personal history of urinary calculi; Z96.652 Presence of left artificial knee joint; Z95.1 Presence of aortocoronary bypass graft; Z87.891 Personal history of nicotine dependence; K44.9 Diaphragmatic hernia without obstruction or gangrene; K57.90 Diverticulosis of intestine, part unspecified, without perforation or abscess without bleeding
CPT/HCPCS: 36415; 74176; 80053; 81001; 83690; 85025; 96372; 99284; J1885

== ENCOUNTER 2023-08-15 11:00 | Emergency (ER) | payer MEDICARE, OTHER, SELFPAY ==
--- NOTE | ~2023-08-15 | XR_ITS ---
EXAMINATION: XR lumbar spine 2-3V DATE: 08/15/2023 12:15 INDICATION: Right-sided low back pain. TECHNIQUE: 3 views of lumbar spine were obtained. COMPARISON: Lumbar spine radiographs 12/17/2020, CT abdomen and pelvis 09/08/2021 FINDINGS: There is 10 degrees levoscoliosis of lumbar spine. There is 3 mm retrolisthesis of L2 on L3 . There is a chronic compression fracture of L1 with 2/5 loss of height. There is severely decreased disc height at L1-L2 and L2-L3 and mildly decreased disc height at L3-L4 and L4-L5. There is multilev el facet joint osteoarthritis, severe at some levels. IMPRESSION: 1. Severe lumbar spondylosis. 2. Lumbar dextroscoliosis. Reviewed, dictated and finalized at location A. [employer]
[2023-08-15 11:04] VITALS: BP 154/70; PULSE 50; RESP 16; TEMP 36.5; O2SAT 97
[2023-08-15] MEDS: LIDOCAINE 5% PATCH 1 PATCH TRANSDERM (12:00)
[2023-08-15] MEDS: ACETAMINOPHEN 500 MG TABLET 1000 MG PO (12:00)
[2023-08-15] MEDS: KETOROLAC 30 MG/ML VIAL (*BKC) IM (12:03)
--- NOTE | 2023-08-15 12:06 | PC.NURSE ---
Pt to xray via wheelchair at this time
--- NOTE | 2023-08-15 13:40 | ED.BACK ---
HPI - Back Pain/Injury General Chief Complaint: Back Pain/Injury Stated Complaint: back pain Time Seen by Provider: 08/15/23 11:27 History of Present Illness HPI Narrative: This is a 72-year-old male, with history of coronary artery disease, who presents to the emergency department complaining of low back pain for the past 6 months. The patient describes the pain as sore and dull, rated 5 to 6/10, worse with bending forward and lifting. He denies associated fevers, chills, loss of sensation in the groin or loss of bowel or bladder control. The patient states his pain was worsened over the past few days, prompting his visit today. He has no other complaints at this time. Related Data Home Medications Medication Instructions Recorded Confirmed clopidogrel 75 mg tablet (Plavix) 75 mg PO .THREE TIMES WEEKLY 02/29/20 08/21/20 rabeprazole 20 mg tablet,delayed 20 mg PO DAILY 02/29/20 08/21/20 release (AcipHex) tamsulosin 0.4 mg capsule 0.4 mg PO DAILY 08/21/20 08/21/20 paroxetine HCl 10 mg tablet mg PO 12/17/20 Allergies Allergy/AdvReac Type Severity Reaction Status Date / Time mercury (elemental) Allergy Unknown Itching Verified 08/15/23 11:22 thimerosal Allergy Unknown Verified 08/15/23 11:22 Review of Systems Review of Systems: CONSTITUTIONAL: Denies fever, chills, or sweats. CARDIOVASCULAR: Denies chest pain, palpitations, or edema. RESPIRATORY: Denies cough or dyspnea. GASTROINTESTINAL: Denies abdominal pain, nausea, vomiting, or diarrhea. GENITOURINARY: Denies dysuria or hematuria. SKIN: Denies rash or itching. MUSCULOSKELETAL: Low back pain Denies joint pain, or myalgia. NEUROLOGIC: Denies headache, numbness, dizziness, or weakness. PSYCHIATRIC: Denies anxiety or depression. [facility] Past Medical History Medical History CAD (coronary artery disease) GERD (gastroesophageal reflux disease) History of TIA (transient ischemic attack) History of torn meniscus of left knee Hyperlipidemia Inguinal hernia Insomnia Kidney stone Myocardial infarction Surgical History Surgical History H/O inguinal hernia repair History of cardiac catheterization History of knee replacement procedure of left knee History of orthopedic surgery left thumb revision, left knee meniscus repair Hx of CABG Status post carotid surgery Family History Family History Father Heart disease Diverticulitis Dementia Sibling Cancer of unknown origin Down syndrome Mother Cancer Social History Social History Smoking packs per day: 1 Smoking cigarettes per day: 20.0 Years smoked: 20 Smoking pack-years: 20.00 Smoking status: Former smoker Tobacco type: cigarettes Second hand tobacco smoke exposure: No Smoking end date: 06/17/90 Alcohol intake: former Drinks per week: 10 Substance use: never Substance use type: does not use Living arrangements: with family Occupation/Education: retired Gender identity (if verbalized by the patient): Male Sexual Orientation (if Verbalized by the Patient): Straight or Heterosexual Spiritual care concerns: No Exam Narrative: GENERAL: Well-developed, well-nourished, and in no acute distress. HEAD: Normocephalic, atraumatic. EYES: PERRLA and EOMI. CHEST: Clear to auscultation. No respiratory distress. No wheezes rales or rhonchi HEART: Regular rate and rhythm. No murmur heard. Normal peripheral pulses. ABDOMEN: Soft, nontender, nondistended, normal active bowel sounds. BACK: no midline spine tenderness to palpation, step-off no crepitus. There is right paraspinal lumbar muscle spasm and mild tenderness to palpation compared to left. There is no overlying erythema, induration or fluctuance noted. EXTREMITIES: Normal range of motion. No smita
[2023-08-15 13:50] VITALS: BP 134/76; PULSE 52; RESP 14; TEMP 36.4; O2SAT 99
== END 2023-08-15 13:52 | disposition home or self-care (01) ==
PROVIDERS: Emergency Provider Preventive Medicine Aerospace Medicine
DX: M47.816 Spondylosis without myelopathy or radiculopathy, lumbar region (principal); M48.56XA Collapsed vertebra, not elsewhere classified, lumbar region, initial encounter for fracture; I25.10 Atherosclerotic heart disease of native coronary artery without angina pectoris; E78.5 Hyperlipidemia, unspecified; I25.2 Old myocardial infarction; K21.9 Gastro-esophageal reflux disease without esophagitis; Z96.652 Presence of left artificial knee joint; Z95.1 Presence of aortocoronary bypass graft; Z86.73 Personal history of transient ischemic attack (TIA), and cerebral infarction without residual deficits; Z87.442 Personal history of urinary calculi; Z87.891 Personal history of nicotine dependence
CPT/HCPCS: 72100; 96372; 99283; A9270; J1885

== ENCOUNTER 2023-12-18 02:15 | Inpatient (IN) | payer MEDICARE, OTHER, SELFPAY ==
[2023-12-18] VITALS (21 sets, daily range): BP systolic 116–156; BP diastolic 50–102; PULSE 46–57; RESP 11–20; TEMP 35.7–37.1; O2SAT 94–99; BMI 24.2
--- NOTE | ~2023-12-18 | XR_ITS ---
Clinical Indication: Chest pain PA and lateral views of the chest: Comparison: 08/20/2020 Findings: The lungs are clear, without evidence of focal consolidation or pleural effusion. Cardiome diastinal silhouette is stable, status post median sternotomy. Bones and soft tissues are unremarkabl e. Impression: Clear lungs. Reviewed, dictated and finalized at location . Impression: Clear lungs.
--- NOTE | 2023-12-18 02:16 | ECG_ITS ---
Test Date: 2023-12-18 02:22:07 Measurements Intervals [place] Rate: 52 P: 31 [place]: 160 QRS: -44 QRSD: 145 T: 8 QT: 488 QTc: 455 Interpretive Statements SINUS BRADYCARDIA LEFT AXIS DEVIATION RIGHT BUNDLE BRANCH BLOCK MODERATE VOLTAGE CRITERIA FOR LVH, CONSIDER NORMAL VARIANT ABNORMAL ECG No previous ECG available for comparison Electronically Signed On 12-18-2023 06:31:42 CDT by Krystian Hinojosa D.O.
--- NOTE | 2023-12-18 02:29 | ED.CHESTPAIN ---
HPI - Chest Pain General Chief Complaint: Chest Pain Stated Complaint: chest pain Time Seen by Provider: 12/18/23 02:19 History of Present Illness HPI narrative: Patient is a 73-year-old male with history of hyperlipidemia, coronary artery disease s/p triple-vessel CABG 22 years ago here with chest pain. He states that this afternoon he was using a rowing machine at the gym when he started experiencing midsternal chest pain. He states that the pain was nonradiating and self resolved within about an hour. He suspected it could be due to his acid reflux. He notes that he works out multiple times a week, never has exertional symptoms until today. He then states that around 1:30 a.m. he was lying down in bed and began experiencing that symptoms again. The pain was mid sternal initially about a 4, now closer to a 1. The pain is non radiating with no associated symptoms. He denies any recent cough, congestion, fever, chills. He follows with a restaurant manager through the [facility] system in [place], saw them recently and was told everything had been looking good at that time. His last stress test was approximately 15 years ago. He did note that he had a headache earlier this evening, took 3 ibuprofen. Related Data Home Medications Medication Instructions Recorded Confirmed clopidogrel 75 mg tablet (Plavix) 75 mg PO .THREE TIMES WEEKLY 02/29/20 08/21/20 rabeprazole 20 mg tablet,delayed 20 mg PO DAILY 02/29/20 08/21/20 release (AcipHex) tamsulosin 0.4 mg capsule 0.4 mg PO DAILY 08/21/20 08/21/20 paroxetine HCl 10 mg tablet mg PO 12/17/20 Allergies Allergy/AdvReac Type Severity Reaction Status Date / Time mercury (elemental) Allergy Unknown Itching Verified 08/15/23 11:22 thimerosal Allergy Unknown Verified 08/15/23 11:22 Review of Systems Review of Systems: All systems reviewed & are unremarkable except as noted in HPI and below [facility] Past Medical History Medical History CAD (coronary artery disease) GERD (gastroesophageal reflux disease) History of TIA (transient ischemic attack) History of torn meniscus of left knee Hyperlipidemia Inguinal hernia Insomnia Kidney stone Myocardial infarction Surgical History Surgical History H/O inguinal hernia repair History of cardiac catheterization History of knee replacement procedure of left knee History of orthopedic surgery left thumb revision, left knee meniscus repair Hx of CABG Status post carotid surgery Family History Family History (Updated 12/18/23 @ 05:52 by Vernon Cameron RN) Father Dementia Diverticulitis Heart disease Sibling Down syndrome Cancer of unknown origin Mother Cancer Grandparent Diabetes mellitus Social History Social History Smoking packs per day: 1 Smoking cigarettes per day: 20.0 Years smoked: 20 Smoking pack-years: 20.00 Smoking status: Former smoker Tobacco type: cigarettes Second hand tobacco smoke exposure: No Smoking end date: 06/17/90 Alcohol intake: former Drinks per week: 10 Substance use: never Substance use type: does not use Living arrangements: with family Occupation/Education: retired Gender identity (if verbalized by the patient): Male Sexual Orientation (if Verbalized by the Patient): Straight or Heterosexual Spiritual care concerns: No Exam Narrative: GENERAL: Well-appearing, well-nourished, and in no acute distress. HEAD: Normocephalic, atraumatic. EYES: PERRLA and EOMI. ENT: Nares clear. Mucous membranes moist. NECK: Supple. CHEST: Clear to auscultation. No respiratory distress. HEART: Regular rate and rhythm. Normal peripheral pulses. ABDOMEN: Soft, nontender, nondistended. EXTREMITIES: Normal range of motion. No edema. SKIN: Warm, dry, no rash. NEURO: No focal deficits. Alert and oriente
[2023-12-18] MEDS: ASPIRIN 81 MG CHEWABLE TABLET 324 MG PO (02:44)
[2023-12-18 02:45] LABS: Basophils Absolute Auto 0.1 K/mm3 (0.0-0.1); Basophils Percent Auto 1.6 % (0.2-1.2); Eosinophils Absolute Auto 0.4 K/mm3 (0-0.3); Eosinophils Percent Auto 7.2 % (0-4.4); Hematocrit 39.7 % (42.0-52.0); Immature Granulocyte Absolute 0.03 K/mm3 (0.00-0.031); Immature Granulocyte Percent A 0.6 % (0-0.5); Lymphocytes Absolute Auto 1.24 K/mm3 (0.9-3.2); Lymphocytes Percent Auto 24.8 % (18.3-44.2); Mean Corpuscular HGB Conc 35.3 g/dl (32-36); Mean Corpuscular Hemoglobin 32.1 pg (26-34); Mean Corpuscular Volume 91.1 fl (80-100); Mean Platelet Volume 9.2 fl (7.4-10.4); Monocytes Absolute Auto 0.7 K/mm3 (0.1-0.6); Monocytes Percent Auto 13.2 % (2.6-8.5); Neutrophils Absolute Auto 2.6 K/mm3 (1.3-6.7); Neutrophils Percent Auto 52.6 % (45.5-73.1); Platelet Count Result 226 k/mm3 (150-375); Red Blood Count 4.36 M/mm3 (4.6-6.20); Red Cell Distribution Width 13.5 % (11.5-14.5)
[2023-12-18 02:57] LABS: Alanine Aminotransferase 17 U/L (6-50); Alkaline Phosphatase 82 U/L (38-126); Anion Gap 7 mmol/L (4-12); Aspartate Amino Transferase 35 U/L (17-59); Bilirubin,Total 0.4 mg/dL (0.2-1.3); Blood Urea Nitrogen 18 mg/dL (9-20); Carbon Dioxide 25 mmol/L (22-30); Chloride 107 mmol/L (98-107); Estimated CRCL calculation 79 ml/min; Estimated Glomerular Filt Rate > 60; Glucose 146 mg/dL (65-110); Lipase 134 U/L (23-300); Potassium 3.9 mmol/L (3.4-5.0); Sodium 139 mmol/L (137-145)
--- NOTE | 2023-12-18 03:05 | ECG_ITS ---
Test Date: 2023-12-18 03:10:22 Measurements Intervals [place] Rate: 53 P: 24 [place]: 159 QRS: -41 QRSD: 148 T: 8 QT: 495 QTc: 467 Interpretive Statements SINUS BRADYCARDIA ATRIAL PREMATURE COMPLEX LEFT AXIS DEVIATION RIGHT BUNDLE BRANCH BLOCK [ MODERATE VOLTAGE CRITERIA FOR LVH, CONSIDER NORMAL VARIANT ABNORMAL ECG Compared to ECG 12/18/2023 02:22:07 No significant changes Electronically Signed On 12-18-2023 06:32:17 CDT by Krystian Hinojosa D.O.
[2023-12-18 03:07] LABS: INR 0.9; Prothrombin Time 12.9 Seconds (11.1-14.7)
[2023-12-18 03:08] LABS: Partial Thromboplastin Time 26.4 Seconds (22.3-36.8)
[2023-12-18] MEDS: NITROGLYCERIN SL 0.4 MG TABLET SUBLINGUAL (03:08)
--- NOTE | 2023-12-18 03:35 | PC.NURSE ---
Pt was given all 3 tablets of nitro within 5 min of each other due to pt still rating his pain 1/[address] Harrington. Pt last set of vitals are 51 heart rate, 18 respirations, 94 oxygen on room air, and 140/71 blood pressure. Pt states his heart rate is always in the 50s/ lower.
[2023-12-18] MEDS: HEPARIN SODIUM 5,000 UNITS/ML VIAL 4000 UNITS IV PUSH (04:04)
[2023-12-18] MEDS: HEPARIN SOD/D5W 100 UNITS/ML 25,000 UNITS/250 ML BAG 9 UNITS IV CONT (04:05)
--- NOTE | 2023-12-18 06:02 | ADMGEN ---
This patient, Waylon Jimenez, was admitted to IMU Room 202-01. Patient/family oriented to hospital policies and general routines including ID bracelet, bed and alarms, visiting hours, pain management, procedures, bathroom and other care routines, personal items, smoking policy, room service/diet, and visiting hours. Information on how to activate the Rapid Response Team has been discussed. Patient/Family are encouraged to report perceived risks to care and to ask questions if they do not understand what they are told or what they should do.
--- NOTE | 2023-12-18 06:56 | PC.NURSE ---
aPTT scheduled per protocol for 6 hours post start of Heparin GTT. ([id number])
[2023-12-18 07:00] LABS: Prothrombin Time 13.4 Seconds (11.1-14.7)
[2023-12-18 07:03] LABS: Partial Thromboplastin Time 145.4 Seconds (22.3-36.8)
[2023-12-18 09:29] LABS: Cholesterol 129 mg/dL (0-200); HDL Direct 44 mg/dL; Triglycerides 170 mg/dL (<150)
[2023-12-18 09:32] LABS: Hemoglobin A1C 5.3 % (<5.7)
[2023-12-18 09:40] LABS: LDL Cholesterol Direct 73 mg/dL
--- NOTE | 2023-12-18 09:59 | PM.CNCAR ---
Assessment and Plan Assessment and plan (1) Acute non-ST elevation myocardial infarction (NSTEMI): Code(s): I21.4 - Non-ST elevation (NSTEMI) myocardial infarction Status: Acute Assessment and Plan: Given NSTEMI, recommended cardiac catheterization. I did discuss with the patient that given his prior history of stents/CABG, he may have underlying complex disease that would need intervention with stenting. I discussed with the patient that our label cutter here at [facility] does not have the capability to do complex interventions, and if he would need complex intervention, he would need to be transferred to another institution. Patient very understanding of this situation. We discussed options of doing cardiac catheterization here and possible transfer out to another institution after that if needed vs transferring him to [facility] to his primary cardiology group. Since his primary lumber planer is at [facility], will arrange transfer to [facility]. Transfer line called, and patient has been accepted by Dr. Bowen with Cardiology. Continue Heparin drip, ASA 81mg once daily. (2) CAD (coronary artery disease): Code(s): I25.10 - Atherosclerotic heart disease of zuni coronary artery without angina pectoris Status: Acute Assessment and Plan: As above. (3) Hyperlipidemia: Code(s): E78.5 - Hyperlipidemia, unspecified Status: Acute Assessment and Plan: Has statin intolerance, on Repatha (4) History of TIA (transient ischemic attack): Code(s): Z86.73 - Personal history of transient ischemic attack (TIA), and cerebral infarction without residual deficits Status: Acute Assessment and Plan: Continue ASA and Repatha Plan Recommendations and plan discussed with Hospitalist. History of Present Illness History of Present Illness Consult date/time: 12/18/23 09:59 Requesting physician: Oly Harrington MD Consult reason: chest pain Reason For Visit: NSTEMI Narrative: We are consulted for chest pain. This is a very pleasant 73 year old male with coronary artery disease s/p prior stents with subsequent CABG in 2007 (bypass graft anatomy unknown), hyperlipidemia with statin intolerance, history of TIA, GERD. Patient's primary lumber planer is Dr. Misha Taylor with [facility]. Patient states that yesterday afternoon, he was using the rowing machine at his gym, and he began having a burning type of substernal chest pain that lasted for about 5 minutes or so. Thought it may have been acid reflux. He normally works out multiple times a week and does well with exertion. Overnight, he began to have similar chest pain again that continued to persist, therefore, he came to ED. Patient's chest pain resolved with NTG. He remains chest pain free this morning, and is otherwise feeling well. His EKG here showed sinus bradycardia, RBBB, nonspecific STTW abnormalities. Unable to compare the EKG to his previous one in our system from 2020 due to our EKG system outage. Initial troponin 1.470. Second troponin at 2.190. Review of Systems Review of Systems: All systems reviewed & are unremarkable except as noted in HPI and below (HPI) [facility] Past Medical History Medical History CAD (coronary artery disease) GERD (gastroesophageal reflux disease) History of TIA (transient ischemic attack) History of torn meniscus of left knee Hyperlipidemia Inguinal hernia Insomnia Kidney stone Myocardial infarction Surgical History Surgical History H/O inguinal hernia repair History of cardiac catheterization History of knee replacement procedure of left knee History of orthopedic surgery left thumb revision, left knee meniscus repair Hx of CABG Status post carotid surgery Family History Family History Father Dementia Diverticulitis Heart disease
[2023-12-18 10:12] LABS: Partial Thromboplastin Time 90.1 Seconds (22.3-36.8)
--- NOTE | 2023-12-18 10:48 | PM.TDS ---
Transfer Discharge Sum: Prov Provider Date of admission: 12/18/23 05:00 Primary care physician: Cassandra Gaona Admitting clinician: Vijaya Mercado MD Consults: 12/18/23 Consult to Physician Routine Comment: spoke with Dr. Preciado @[phone](,) Consulting Provider: Casey Preciado manager call center/MD group to consult: Charito Reason for consultation: NSTEMI Has provider been notified: Yes DS: Admitting Diagnosis Discharge Date 12/18/2023 Admitting Diagnosis Chest pain DS: Discharge Diagnosis Discharge Diagnosis (1) Acute non-ST elevation myocardial infarction (NSTEMI): Code(s): I21.4 - Non-ST elevation (NSTEMI) myocardial infarction Status: Acute Plan Patient is a 73-year-old male with history of hyperlipidemia, coronary artery disease s/p triple-vessel CABG 22 years ago here with chest pain. He states that this afternoon he was using a rowing machine at the gym when he started experiencing midsternal chest pain. He states that the pain was nonradiating and self resolved within about an hour. He suspected it could be due to his acid reflux. He notes that he works out multiple times a week, never has exertional symptoms until today. He then states that around 1:30 a.m. he was lying down in bed and began experiencing that symptoms again. The pain was mid sternal initially about a 4, now closer to a 1. The pain is non radiating with no associated symptoms. He denies any recent cough, congestion, fever, chills. He follows with a hide or skin buffer through the [facility] system in [place], saw them recently and was told everything had been looking good at that time. His last stress test was approximately 15 years ago. He did note that he had a headache earlier this evening, took 3 ibuprofen. 73 y/o male with history of CAD s/p 3 vessel CABG now with CP with exertion, with elevated tropes, currently patient denies any CP he stats he is feeling better, patient will be seen by hide or skin buffer and further recommendations to follow. Patient was seen by Dr. Preciado and recommended further evaluation with cardiac cath however patient with complicated CAD would required intervention which is not available at the hospital, the hide or skin buffer spoke with patient primary hide or skin buffer agreed to transfer the patient to [facility] for further evaluation and treatment and patient is agreeable, will transfer the patient. Transfer Discharge Sum: Med Medications Active and Home Medications: Home Medications rabeprazole 20 mg tablet,delayed release (AcipHex) 20 mg PO DAILY 02/29/20 [History Confirmed 12/18/23] tamsulosin 0.4 mg capsule 0.4 mg PO DAILY 08/21/20 [History Confirmed 12/18/23] Alive Men's 50 Plus Multivit 1 tablet PO DAILY 12/18/23 [History Confirmed 12/18/23] Viagra 100 mg PO DAILY PRN Sexual Activity 12/18/23 [History Confirmed 12/18/23] alprazolam 0.25 mg tablet 0.25 mg PO HS PRN Anxiety 12/18/23 [History Confirmed 12/18/23] aspirin 81 mg chewable tablet 82 mg PO DAILY 12/18/23 [History Confirmed 12/18/23] duloxetine 30 mg capsule,delayed release 30 mg PO DAILY 12/18/23 [History Confirmed 12/18/23] evolocumab 140 mg/mL subcutaneous syringe (Repatha Syringe) 140 mg subcut [id number] 12/18/23 [History Confirmed 12/18/23] Active Medications Alprazolam (Alprazolam (*Crx) 0.25 Mg Tablet) 0.25 mg PO HS PRN PRN Reason: Anxiety Duloxetine HCl (Duloxetine Hcl 30 Mg Capsule.Dr) 30 mg PO DAILY [facility] Heparin Sodium (Porcine) (Heparin Sodium 5,000 Units/Ml Vial) 4,000 units IV PUSH PRN PRN PRN Reason: aPTT less than 55 seconds Heparin Sodium (Porcine) (Heparin Sodium 5,000 Units/Ml Vial) 3,000 units IV PUSH PRN PRN PRN Reason: aPTT 55 - 70 seconds Heparin Sodium/Dextrose (Heparin Sodium/D5w 100 Units/Ml) 25,000 units in 250 mls @ 9 mls/hr IV CONT .Q24H YULIANA; Protocol Last Titration: 12/18/23 10:25 Dose: 900 units/hr, 9 mls/hr Miscellaneous Information (Evolocumab (Repatha Syringe) Nonformulary, Can Patient Bring From Home Or Hold Until Di
--- NOTE | 2023-12-18 11:09 | PM.IMHP ---
H&P: HPI History of Present Illness Date/Time: 12/18/23 11:09 Chief Complaint: chest pain Narrative: ER-HPI narrative: Patient is a 73-year-old male with history of hyperlipidemia, coronary artery disease s/p triple-vessel CABG 22 years ago here with chest pain. He states that this afternoon he was using a rowing machine at the gym when he started experiencing midsternal chest pain. He states that the pain was nonradiating and self resolved within about an hour. He suspected it could be due to his acid reflux. He notes that he works out multiple times a week, never has exertional symptoms until today. He then states that around 1:30 a.m. he was lying down in bed and began experiencing that symptoms again. The pain was mid sternal initially about a 4, now closer to a 1. The pain is non radiating with no associated symptoms. He denies any recent cough, congestion, fever, chills. He follows with a book solicitor through the [facility] system in [place], saw them recently and was told everything had been looking good at that time. His last stress test was approximately 15 years ago. He did note that he had a headache earlier this evening, took 3 ibuprofen. 73 y/o male with history of CAD s/p 3 vessel CABG now with CP with exertion, with elevated tropes, currently patient denies any CP he stats he is feeling better, patient will be seen by book solicitor and further recommendations to follow. Review of Systems Review of Systems: All systems reviewed & are unremarkable except as noted in HPI and below (HPI) [facility] Past Medical History Medical History CAD (coronary artery disease) GERD (gastroesophageal reflux disease) History of TIA (transient ischemic attack) History of torn meniscus of left knee Hyperlipidemia Inguinal hernia Insomnia Kidney stone Myocardial infarction Surgical History Surgical History H/O inguinal hernia repair History of cardiac catheterization History of knee replacement procedure of left knee History of orthopedic surgery left thumb revision, left knee meniscus repair Hx of CABG Status post carotid surgery Family History Family History Father Dementia Diverticulitis Heart disease Sibling Down syndrome Cancer of unknown origin Mother Cancer Grandparent Diabetes mellitus Social History Social History Smoking packs per day: 1 Smoking cigarettes per day: 20.0 Years smoked: 30 Smoking pack-years: 30.00 Smoking status: Former smoker Tobacco type: cigarettes Second hand tobacco smoke exposure: No Smoking end date: 06/17/90 Alcohol intake: former Drinks per week: 10 Substance use: never Substance use type: does not use Do You Feel Safe in your Home?: Yes Lack of Transportation: No Lack of Food: Never True Current Housing: I Have Housing Concerned About Future Housing: No Difficulty Paying Gas/Electric Bills: No Difficulty Paying for Meds: No Currently Unemployed: No Education: Bachelor's Degree Difficulty w/ Childcare or Family Care: No Living arrangements: with family Occupation/Education: retired Gender identity (if verbalized by the patient): Male Sexual Orientation (if Verbalized by the Patient): Straight or Heterosexual Spiritual care concerns: No Meds Home Medications and Allergies Home Medications Medication Instructions Recorded Confirmed Type rabeprazole 20 mg tablet,delayed 20 mg PO DAILY 02/29/20 12/18/23 History release (AcipHex) tamsulosin 0.4 mg capsule 0.4 mg PO DAILY 08/21/20 12/18/23 History Alive Men's 50 Plus Multivit 1 tablet PO DAILY 12/18/23 12/18/23 History Viagra 100 mg PO DAILY PRN Sexual Activity 12/18/23 12/18/23 History alprazolam 0.25 mg tablet 0.25 mg PO HS PRN Anxiety 12/18/23 12/18/23 History
--- NOTE | 2023-12-18 11:47 | PC.NURSE ---
Pt awaiting ambulance transfer to [facility]. Report called to ELISHA Lewis in [employer]. Pt has no chest pain or discomfort at this time
== END 2023-12-18 13:18 | disposition short-term general hospital (02) | DRG 282 ==
LOC: ANHED 02:48 → ANHIMU 06:10
PROVIDERS: Internal Medicine; Admitting Provider General Practice; Emergency Provider Student in an Organized Health Care Education/Training Program; Visit Provider Family Medicine
DX: I21.4 Non-ST elevation (NSTEMI) myocardial infarction (principal); I25.10 Atherosclerotic heart disease of native coronary artery without angina pectoris; E78.5 Hyperlipidemia, unspecified; K21.9 Gastro-esophageal reflux disease without esophagitis; Z96.652 Presence of left artificial knee joint; Z95.1 Presence of aortocoronary bypass graft; Z86.73 Personal history of transient ischemic attack (TIA), and cerebral infarction without residual deficits; I25.2 Old myocardial infarction; Z87.442 Personal history of urinary calculi; Z87.891 Personal history of nicotine dependence
CPT/HCPCS: 36415; 71046; 80053; 80061; 83036; 83690; 84443; 84484; 85025; 85610; 85730; 93005; 96365; 99285; A9270; J1644

== ENCOUNTER 2024-04-16 10:00 | Outpatient (RCR) | payer MEDICARE, OTHER, SELFPAY ==
[2024-01-21 08:44] VITALS: PULSE 64
== END 2024-04-16 11:15 | disposition home or self-care (01) ==
LOC: ANHCPREHAB 10:00
PROVIDERS: Visit Provider Internal Medicine Cardiovascular Disease
DX: Z95.5 Presence of coronary angioplasty implant and graft (principal)
CPT/HCPCS: 93798

== ENCOUNTER 2024-05-12 17:32 | Emergency (ER) | payer MEDICARE, OTHER, SELFPAY ==
[2024-05-12] VITALS (13 sets, daily range): BP systolic 131–166; BP diastolic 65–78; PULSE 48–57; RESP 9–19; TEMP 36.7; O2SAT 96–100
--- NOTE | ~2024-05-12 | CT_ITS ---
EXAMINATION: CT abdomen pelvis w con DATE: 05/12/2024 21:28 INDICATION: bilateral lower quadrant abdominal pain, nausea TECHNIQUE: Computed tomography (CT) of the abdomen and pelvis was performed with 100 mL Omnipaque-350 intravenous contrast. Automated exposure control and iterative reconstruction technique were employe d. The dose-length product was 347.38 mGy-cm. COMPARISON: 09/08/2021. FINDINGS: Lower thorax: Coronary artery calcifications and stents. 11 mm right lower lobe pulmonary nodule. Liver: Normal. Biliary/Gallbladder: Gallbladder is normal. No bile duct dilation. Pancreas: No mass or duct dilation. Spleen: Normal. Adrenals:No mass. Kidneys: No suspicious mass, obstructing stone, or hydronephrosis. Punctate bilateral nonobstructing calculi. GI tract: Mild distal esophageal wall edema. No small or large bowel dilation. Normal appendix. Diver ticulosis without diverticulitis. Fluid-filled colon. Mesentery/Peritoneum: No ascites, mass, or free air. Prominent mesenteric lymph nodes with surroundin g fat halos. Retroperitoneum: No mass. Atherosclerotic abdominal aortic and/or arterial calcifications. Pelvis: Pelvic organs are within normal limits. Soft Tissues: Soft tissues and body wall unremarkable. Bones: No acute osseous finding. IMPRESSION: 11 mm right lower lobe pulmonary nodule. Consider low-dose noncontrast CT of the chest in 3 months, P ET/CT, or tissue sampling. Esophagitis. Mesenteric panniculitis. Fluid-filled colon as can be seen with diarrheal illness. Reviewed, dictated and finalized at location [facility] IMPRESSION: 11 mm right lower lobe pulmonary nodule. Consider low-dose noncontrast CT of th e chest in 3 months, PET/CT, or tissue sampling. Esophagitis. Mesenteric panniculitis. Fluid-filled colon as can be seen with diarrheal illness.
--- NOTE | 2024-05-12 18:52 | ECG_ITS ---
Test Date: 2024-05-12 19:23:30 Measurements Intervals [place] Rate: 52 P: 29 KS: 162 QRS: -44 QRSD: 141 T: -13 QT: 478 QTc: 447 Interpretive Statements SINUS BRADYCARDIA LEFT AXIS DEVIATION RIGHT BUNDLE BRANCH BLOCK LEFT VENTRICULAR HYPERTROPHY BORDERLINE ST-T WAVE ABNORMALITY- LATERAL LEADS ABNORMAL ECG Compared to ECG 12/18/2023 03:10:22 NO SIGNIFICANT CHANGE Electronically Signed On 05-13-2024 06:09:47 BIOPHARMACEUTICAL REP by Krystian Hinojosa D.O.
--- NOTE | 2024-05-12 18:53 | ED_ITS ---
HPI - Abdominal Pain General Chief Complaint: Abdominal Pain <Lizz Alvarez APRN - Last Filed: 05/12/24 18:57> Stated Complaint: abd cramps and nausea <Lizz Alavrez APRN - Last Filed: 05/12/24 18:57> Time Seen by Provider: 05/12/24 18:45 <Lizz Alvarez APRN - Last Filed: 05/12/24 18:57> Focused HPI: Patient is a 73 male presents to the ER with complaints of generalized abdominal pain, nausea and diarrhea. He reports the nausea and abdominal pain started about 3-4 days ago but the diarrhea started this morning. Patient reports he has a history of CAD, HTN and GERD. He denies a history of diabetes, vomiting, or recent temperatures. Patient is concerned because he reports his is currently getting chemotherapy and he does not want to give her anything infectious. He denies chest pain, fevers, or urinary symptoms. Patient reports he has a history of bradycardia but they have worked me up for this before and it's nothing. GENERAL: Well-appearing, well-nourished, and in no acute distress. HEAD: Normocephalic, atraumatic. CHEST: Clear to auscultation. ?No respiratory distress. HEART: Bradycardia and rhythm.? NEURO: ?Alert and oriented x3. Patient screened in triage and initial orders placed.? ?Additional care and disposition to be based upon?diagnostic testing and treatment. <Lizz Alvarez APRN - Last Filed: 05/12/24 18:57> History of Present Illness HPI narrative: Patient 73-year-old gentleman who presents emergency department chief complaint of abdominal pain. The patient reports he has had some nausea and diarrhea reports that he has had abdominal discomfort in the lower portions of his abdomen the patient reports no prior abdominal surgeries of the hernia surgery <Mc Mahajan MD - Last Filed: 05/12/24 23:32> Related Data Home Medications: Home Medications Medication Instructions Recorded Confirmed rabeprazole 20 mg tablet,delayed 20 mg PO DAILY 02/29/20 12/18/23 release (AcipHex) tamsulosin 0.4 mg capsule 0.4 mg PO DAILY 08/21/20 12/18/23 Alive Men's 50 Plus Multivit 1 tablet PO DAILY 12/18/23 12/18/23 Viagra 100 mg PO DAILY PRN Sexual Activity 12/18/23 12/18/23 alprazolam 0.25 mg tablet 0.25 mg PO HS PRN Anxiety 12/18/23 12/18/23 aspirin 81 mg chewable tablet 82 mg PO DAILY 12/18/23 12/18/23 duloxetine 30 mg capsule,delayed 30 mg PO DAILY 12/18/23 12/18/23 release evolocumab 140 mg/mL subcutaneous 140 mg subcut [id number] 12/18/23 12/18/23 syringe (Repatha Syringe) <Lizz Alvarez APRN - Last Filed: 05/12/24 18:57> Allergies/Adverse Reactions: Allergies Allergy/AdvReac Type Severity Reaction Status Date / Time mercury (elemental) Allergy Unknown Itching Verified 08/15/23 11:22 thimerosal Allergy Unknown Verified 08/15/23 11:22 <Lizz Alvarez APRN - Last Filed: 05/12/24 18:57> Review of Systems Review of Systems: A 10 system review of systems was completed on the patient and is negative except for what is stated in the HPI. Nursing and ancillary documentation was reviewed. <Mc Mahajan MD - Last Filed: 05/12/24 23:32> [facility] Past Medical History Medical History: Medical History CAD (coronary artery disease) GERD (gastroesophageal reflux disease) History of TIA (transient ischemic attack) History of torn meniscus of left knee Hyperlipidemia Inguinal hernia Insomnia Kidney stone Myocardial infarction <Lizz Alvarez APRN - Last Filed: 05/12/24 18:57> Surgical History Surgical History: Surgical History H/O inguinal hernia repair History of cardiac catheterization History of knee replacement procedure of left knee History of orthopedic surgery left thumb revision, left knee meniscus repair Hx of CABG Status post carotid surgery <Lizz Alvarez APRN - Last Filed: 05/12/24 18:57> Family History Family History: Family History Father Dementia Diverticulitis Heart disease Sibling Down syndrome Cancer of unknown origin Mother Cancer Grandparent Diabetes mellitus <Lizz Alvarez APRN - Last Filed: 05/12/24 18:57> Social History Social History: Social History Smoking packs per day: 1 Smoking cigarettes per day: 20.0 Years smoked: 20 Smoking pack-years: 20.00 Smoking status: Former smoker Tobacco type: cigarettes Second hand tobacco smoke exposure: No Smoking end date: 06/17/90 Alcohol intake: former Drinks per week: 10 Substance use: never Substance use type: does not use Do You Feel Safe in your Home?: Yes Lack of Transportation: No Lack of Food: Never True Current Housing: I Have Housing Concerned About Future Housing: No Difficulty Paying Gas/Electric Bills: No Difficulty Paying for Meds: No Currently Unemployed: No Education: Bachelor's Degree Difficulty w/ Childcare or Family Care: No Living arrangements: with family Occupation/Education: retired Gender identity (if verbalized by the patient): Male Sexual Orientation (if Verbalized by the Patient): Straight or Heterosexual Spiritual care concerns: No <Lizz Alvarez, EXHIBITION SPECIALIST - Last Filed: 05/12/24 18:57> Exam Narrative: GENERAL: Well-appearing, well-nourished, and in no acute distress. HEAD: Normocephalic, atraumatic. EYES: PERRLA and EOMI. ENT: Nares clear, no rhinorrhea or epistaxis. Mucous membranes moist. NECK: Supple. CHEST: Clear to auscultation. No respiratory distress. HEART: Regular rate and rhythm. No murmur heard. Normal peripheral pulses. ABDOMEN: Soft, nontender, nondistended, normal active bowel sounds. EXTREMITIES: Normal range of motion. No edema. SKIN: Warm, dry, no rash. NEURO: No focal deficits. Alert and oriented x3. PSYCH: Normal mood and affect. <Mc Mahajan MD - Last Filed: 05/12/24 23:32> Course Vital Signs Vital signs: Vital Signs Temperature 36.7 C 05/12/24 17:33 Pulse Rate 52 L 05/12/24 17:33 Respiratory Rate 15 05/12/24 17:33 Blood Pressure 156/75 H 05/12/24 17:33 Pulse Oximetry 98 05/12/24 17:33 Oxygen Delivery Room Air 05/12/24 17:33 Temperature 36.7 C 05/12/24 17:33 Pulse Rate 50 L 05/12/24 22:01 Respiratory Rate 14 05/12/24 22:01 Blood Pressure 141/69 H 05/12/24 22:01 Pulse Oximetry 97 05/12/24 22:01 Oxygen Delivery Room Air 05/12/24 17:33 <Lizz Alvarez, EXHIBITION SPECIALIST - Last Filed: 05/12/24 18:57> Vital Signs Temperature 36.7 C 05/12/24 17:33 Pulse Rate 52 L 05/12/24 17:33 Respiratory Rate 15 05/12/24 17:33 Blood Pressure 156/75 H 05/12/24 17:33 Pulse Oximetry 98 05/12/24 17:33 Oxygen Delivery Room Air 05/12/24 17:33 Temperature 36.7 C 05/12/24 17:33 Pulse Rate 50 L 05/12/24 22:01 Respiratory Rate 14 05/12/24 22:01 Blood Pressure 141/69 H 05/12/24 22:01 Pulse Oximetry 97 05/12/24 22:01 Oxygen Delivery Room Air 05/12/24 17:33 <Mc Mahajan MD - Last Filed: 05/12/24 23:32> MDM - Abdominal Pain MDM Narrative Medical decision making narrative: Differential diagnosis includes intra-abdominal infection, diverticulitis, colitis, appendicitis Laboratory studies were obtained on the patient showed white count of 12.0 electrolytes are within normal limits troponin was negative lipase was 1634 urinalysis showed evidence UTI CT scan of the abdomen pelvis showed no evidence of pancreatitis and evidence of mesenteric panniculitis <Mc Mahajan MD - Last Filed: 05/12/24 23:32> Lab Data Result diagrams: 05/12/24 19:33 05/12/24 19:33 <Lizz Alvarez, EXHIBITION SPECIALIST - Last Filed: 05/12/24 18:57> Labs: Lab Results 05/12/24 05/12/24 Range/Units 19:33 22:48 WBC 12.0 H (4.5-10.0) K/mm3 RBC 4.69 (4.6-6.20) M/mm3 Hgb 14.6 (14.0-18.0) g/dL Hct 43.1 (42.0-52.0) % MCV 91.9 (80-100) fl MCH 31.1 (26-34) pg MCHC 33.9 (32-36) g/dl RDW 14.1 (11.5-14.5) % Plt Count 353 D (150-375) k/mm3 MPV 8.9 (7.4-10.4) fl Immature Gran % (Auto) 0.5 (0-0.5) % Neut % (Auto) 79.8 H (45.5-73.1) % Lymph % (Auto) 8.3 L (18.3-44.2) % [facility] % (Auto) 9.4 H (2.6-8.5) % Eos % (Auto) 1.5 (0-4.4) % Baso % (Auto) 0.5 (0.2-1.2) % Lymph # (Auto) 0.99 (0.9-3.2) K/mm3 [facility] # (Auto) 1.1 H (0.1-0.6) K/mm3 Eos # (Auto) 0.2 (0-0.3) K/mm3 Baso # (Auto) 0.1 (0.0-0.1) K/mm3 Abs Immat Gran (auto) 0.06 H (0.00-0.031) K/mm3 Absolute Neuts (auto) 9.6 H (1.3-6.7) K/mm3 Absolute Nucleated RBC 0.000 (0.0-0.012) K/mm3 Nucleated RBC % 0.0 (0.0-0.2) % PT 13.7 (11.1-14.7) Seconds INR 1.0 APTT 25.0 (22.3-36.8) Seconds Sodium 141 (137-145) mmol/L Potassium 4.8 (3.4-5.0) mmol/L Chloride 103 (98-107) mmol/L Carbon Dioxide 29 (22-30) mmol/L Anion Gap 9 (4-12) mmol/L BUN 23 H (9-20) mg/dL Creatinine 1.10 (0.7-1.3) mg/dL Estim Creat Clear Calc 50 ml/min Estimated GFR > 60 (59 - ) Glucose 97 (65-110) mg/dL Calcium 9.6 (8.4-10.2) mg/dL Total Bilirubin 0.5 (0.2-1.3) mg/dL AST 35 (17-59) U/L ALT 20 (6-50) U/L Alkaline Phosphatase 61 (38-126) U/L Troponin I < 0.012 (0.000-0.034) ng/mL Total Protein 9.0 H (6.3-8.2) g/dL Albumin 4.9 (3.5-5.1) g/dL Lipase 1634 H (23-300) U/L Urine Color Yellow (Yellow) Urine Appearance Clear (Clear) Urine pH 5.5 (5.0-9.0) Ur Specific [place] 1.045 H (1.001-1.035) Urine Protein Negative (Negative) mg/dL Urine Glucose (UA) Negative (Negative) mg/dL Urine Ketones Negative (Negative) mg/dL Ur Blood (Man) Negative (Negative) Urine Nitrate Negative (Negative) Urine Bilirubin Negative (Negative) Urine Urobilinogen 1.0 (<2.0) mg/dL Leukocyte Esterase Rfl Negative (Negative) MICHAEL/UL <Lizz Alvarez, EXHIBITION SPECIALIST - Last Filed: 05/12/24 18:57> Lab Results 05/12/24 05/12/24 Range/Units 19:33 22:48 WBC 12.0 H (4.5-10.0) K/mm3 RBC 4.69 (4.6-6.20) M/mm3 Hgb 14.6 (14.0-18.0) g/dL Hct 43.1 (42.0-52.0) % MCV 91.9 (80-100) fl MCH 31.1 (26-34) pg MCHC 33.9 (32-36) g/dl RDW 14.1 (11.5-14.5) % Plt Count 353 D (150-375) k/mm3 MPV 8.9 (7.4-10.4) fl Immature Gran % (Auto) 0.5 (0-0.5) % Neut % (Auto) 79.8 H (45.5-73.1) % Lymph % (Auto) 8.3 L (18.3-44.2) % [facility] % (Auto) 9.4 H (2.6-8.5) % Eos % (Auto) 1.5 (0-4.4) % Baso % (Auto) 0.5 (0.2-1.2) % Lymph # (Auto) 0.99 (0.9-3.2) K/mm3 [facility] # (Auto) 1.1 H (0.1-0.6) K/mm3 Eos # (Auto) 0.2 (0-0.3) K/mm3 Baso # (Auto) 0.1 (0.0-0.1) K/mm3 Abs Immat Gran (auto) 0.06 H (0.00-0.031) K/mm3 Absolute Neuts (auto) 9.6 H (1.3-6.7) K/mm3 Absolute Nucleated RBC 0.000 (0.0-0.012) K/mm3 Nucleated RBC % 0.0 (0.0-0.2) % PT 13.7 (11.1-14.7) Seconds INR 1.0 APTT 25.0 (22.3-36.8) Seconds Sodium 141 (137-145) mmol/L Potassium 4.8 (3.4-5.0) mmol/L Chloride 103 (98-107) mmol/L Carbon Dioxide 29 (22-30) mmol/L Anion Gap 9 (4-12) mmol/L BUN 23 H (9-20) mg/dL Creatinine 1.10 (0.7-1.3) mg/dL Estim Creat Clear Calc 50 ml/min Estimated GFR > 60 (59 - ) Glucose 97 (65-110) mg/dL Calcium 9.6 (8.4-10.2) mg/dL Total Bilirubin 0.5 (0.2-1.3) mg/dL AST 35 (17-59) U/L ALT 20 (6-50) U/L Alkaline Phosphatase 61 (38-126) U/L Troponin I < 0.012 (0.000-0.034) ng/mL Total Protein 9.0 H (6.3-8.2) g/dL Albumin 4.9 (3.5-5.1) g/dL Lipase 1634 H (23-300) U/L Urine Color Yellow (Yellow) Urine Appearance Clear (Clear) Urine pH 5.5 (5.0-9.0) Ur Specific [place] 1.045 H (1.001-1.035) Urine Protein Negative (Negative) mg/dL Urine Glucose (UA) Negative (Negative) mg/dL Urine Ketones Negative (Negative) mg/dL Ur Blood (Man) Negative (Negative) Urine Nitrate Negative (Negative) Urine Bilirubin Negative (Negative) Urine Urobilinogen 1.0 (<2.0) mg/dL Leukocyte Esterase Rfl Negative (Negative) MICHAEL/UL <Mc Mahajan MD - Last Filed: 05/12/24 23:32> Imaging Data Radiologist's impression: ITS Impressions Abdomen/Pelvis CT 05/12/24 21:41 IMPRESSION: 11 mm right lower lobe pulmonary nodule. Consider low-dose noncontrast CT of the chest in 3 months, PET/CT, or tissue sampling. Esophagitis. Mesenteric panniculitis. Fluid-filled colon as can be seen with diarrheal illness. <Lizz Alvarez APRN - Last Filed: 05/12/24 18:57> ITS Impressions Abdomen/Pelvis CT 05/12/24 21:41 IMPRESSION: 11 mm right lower lobe pulmonary nodule. Consider low-dose noncontrast CT of the chest in 3 months, PET/CT, or tissue sampling. Esophagitis. Mesenteric panniculitis. Fluid-filled colon as can be seen with diarrheal illness. <Mc Mahajan MD - Last Filed: 05/12/24 23:32> Discharge Plan Discharge Clinical Impression: Mesenteric panniculitis, Abdominal pain <Lizz Alvarez APRN - Last Filed: 05/12/24 18:57> Patient Disposition: Home, Self-Care <Lizz Alvarez APRN - Last Filed: 05/12/24 18:57> Condition: Stable <Lizz Alvarez APRN - Last Filed: 05/12/24 18:57> Instructions: Antibiotic Form, Acute Diarrhea (ED), Abdominal Pain (ED), Mesenteric Adenitis (ED) <Lizz Alvarez APRN - Last Filed: 05/12/24 18:57> Prescriptions: New ondansetron 4 mg tablet,disintegrating 4 mg PO Q8H PRN (Reason: nausea and vomiting) Qty: 10 0RF dicyclomine 20 mg tablet 20 mg PO QID PRN (Reason: abdominal discomfort) Qty: 20 0RF No Action rabeprazole [AcipHex] 20 mg tablet,delayed release (DR/EC) 20 mg PO DAILY alprazolam 0.25 mg tablet 0.25 mg PO HS PRN (Reason: Anxiety) aspirin [Aspirin Child] 81 mg Tablet,Chewable 82 mg PO DAILY duloxetine 30 mg capsule,delayed release(DR/EC) 30 mg PO DAILY Repatha Syringe 140 mg/mL syringe 140 mg SUBCUT [id number] Patient Comments: Last dose on Rx Instructions: Alive Men's 50 Plus Multivit 1 tablet PO DAILY Viagra 100 mg PO DAILY PRN (Reason: Sexual Activity) Patient Comments: Hasn't used in a few weeks. tamsulosin 0.4 mg capsule 0.4 mg PO DAILY <Lizz Alvarez APRN - Last Filed: 05/12/24 18:57> Follow-up/Referrals: UNKNOWN,DOCTOR [Primary Care Provider] - Martha Quinn DO [Physician] - <Lizz Alvarez APRN - Last Filed: 05/12/24 18:57> Time of Disposition: 23:30 <Lizz Alvarez APRN - Last Filed: 05/12/24 18:57> 23:30 <Mc Mahajan MD - Last Filed: 05/12/24 23:32>
[2024-05-12 19:38] LABS: Basophils Absolute Auto 0.1 K/mm3 (0.0-0.1); Basophils Percent Auto 0.5 % (0.2-1.2); Eosinophils Absolute Auto 0.2 K/mm3 (0-0.3); Eosinophils Percent Auto 1.5 % (0-4.4); Hematocrit 43.1 % (42.0-52.0); Hemoglobin 14.6 g/dL (14.0-18.0); Immature Granulocyte Absolute 0.06 K/mm3 (0.00-0.031); Immature Granulocyte Percent A 0.5 % (0-0.5); Lymphocytes Absolute Auto 0.99 K/mm3 (0.9-3.2); Lymphocytes Percent Auto 8.3 % (18.3-44.2); Mean Corpuscular HGB Conc 33.9 g/dl (32-36); Mean Corpuscular Hemoglobin 31.1 pg (26-34); Mean Corpuscular Volume 91.9 fl (80-100); Mean Platelet Volume 8.9 fl (7.4-10.4); Monocytes Absolute Auto 1.1 K/mm3 (0.1-0.6); Monocytes Percent Auto 9.4 % (2.6-8.5); Neutrophils Absolute Auto 9.6 K/mm3 (1.3-6.7); Neutrophils Percent Auto 79.8 % (45.5-73.1); Platelet Count Result 353 k/mm3 (150-375); Red Blood Count 4.69 M/mm3 (4.6-6.20); Red Cell Distribution Width 14.1 % (11.5-14.5)
[2024-05-12 19:55] LABS: Alanine Aminotransferase 20 U/L (6-50); Albumin Level 4.9 g/dL (3.5-5.1); Alkaline Phosphatase 61 U/L (38-126); Anion Gap 9 mmol/L (4-12); Aspartate Amino Transferase 35 U/L (17-59); Bilirubin,Total 0.5 mg/dL (0.2-1.3); Blood Urea Nitrogen 23 mg/dL (9-20); Calcium 9.6 mg/dL (8.4-10.2); Carbon Dioxide 29 mmol/L (22-30); Chloride 103 mmol/L (98-107); Estimated CRCL calculation 50 ml/min; Estimated Glomerular Filt Rate > 60; Glucose 97 mg/dL (65-110); Lipase 1634 U/L (23-300); Potassium 4.8 mmol/L (3.4-5.0); Sodium 141 mmol/L (137-145)
[2024-05-12 19:56] LABS: Prothrombin Time 13.7 Seconds (11.1-14.7)
[2024-05-12 20:05] LABS: Troponin I < 0.012 ng/mL (0.000-0.034)
[2024-05-12] MEDS: SODIUM CHLORIDE 0.9% IV 1,000 ML 999 ML IV CONT (21:03)
[2024-05-12] MEDS: PANTOPRAZOLE SODIUM IV 40 MG VIAL IV PUSH (21:04)
[2024-05-12] MEDS: FAMOTIDINE 20 MG/2 ML VIAL IV PUSH (21:04)
[2024-05-12] MEDS: ONDANSETRON INJ 4 MG/2 ML VIAL IV PUSH (21:04)
--- NOTE | 2024-05-12 22:13 | PC.NURSE ---
patient provided with a urinal at this time to attempt to get a urine sample. patient has been educated that urine sample is needed and he hasn't been able to provide one at this time
[2024-05-12 22:55] LABS: Add Urine Microscopic? NO; Appearance Urine Clear (Clear); Bilirubin Urine Negative (Negative); Blood Urine Negative (Negative); Color Urine Yellow (Yellow); Glucose Urine UA Negative (Negative); Ketones Urine Negative (Negative); Leukocyte Esterase Ur Negative LEU/UL (Negative); Nitrate Urine Negative (Negative); Protein Urine Negative (Negative); Specific Grav Ur 1.045 (1.001-1.035); pH Urine 5.5 (5.0-9.0)
--- NOTE | 2024-05-12 23:26 | PC.NURSE ---
Assumed care of pt from Olivia TELLO at this time.
[2024-05-12] MEDS: DICYCLOMINE HCL 10 MG CAPSULE 20 MG PO (23:42)
== END 2024-05-12 23:45 | disposition home or self-care (01) ==
PROVIDERS: Registered Nurse; Emergency Provider Emergency Medicine
DX: K65.4 Sclerosing mesenteritis (principal); I25.10 Atherosclerotic heart disease of native coronary artery without angina pectoris; I25.2 Old myocardial infarction; E78.5 Hyperlipidemia, unspecified; K21.9 Gastro-esophageal reflux disease without esophagitis; Z95.1 Presence of aortocoronary bypass graft; Z96.652 Presence of left artificial knee joint; Z86.73 Personal history of transient ischemic attack (TIA), and cerebral infarction without residual deficits; Z87.442 Personal history of urinary calculi; Z87.891 Personal history of nicotine dependence; K20.90 Esophagitis, unspecified without bleeding; R91.1 Solitary pulmonary nodule; Z79.82 Long term (current) use of aspirin; Z79.899 Other long term (current) drug therapy
CPT/HCPCS: 36415; 74177; 80053; 81003; 83690; 84484; 85025; 85610; 85730; 93005; 96361; 96374; 96375; 99284; A9270; J2405; J2470; J7030; Q9967

== ENCOUNTER 2024-08-28 07:54 | Outpatient (CLI) | payer MEDICARE, OTHER, SELFPAY ==
--- OUTSIDE RECORDS SUMMARY | 2024-08-28 08:02 | XMS_ITS | Encounter Summary ---
Author Organization [facility] Address [address] [place] [address] Phone Care Team Providers Care Gold Leaf Layer Name Role Phone Rick Melissa MD Primary Care Provider [phone] Encounter Details Date Type Department Care Team (Latest Contact Info) Description 09/29/2018 Orders Only [facility] Scanning, Provider Social History Tobacco Use Types Packs/Day Years Used Date Smoking Tobacco: Former Cigarettes 1 20 Smokeless Tobacco: Former Quit: 1990 Alcohol Use Standard Drinks/Week Comments No 0 (1 standard drink = 0.6 oz pur e alcohol) Sex and Gender Information Value Date Recorded Sex Assigned at Not on file Legal Sex Male 6:17 AM CROWN PRESSER Gender Identity Not on file Sexual Orientation Not on file documented as of this encounter Plan of Treatment Not on file documented as of this encounter Goals Goal Patient Goal Type Associated Problems Recent Progress Patient-Stated? Author CCM Chronic Pain Care Plan Chronic Care Management No Keri Marquez, RN Note: Problem: Chronic Pain Goals: 1. Minimize further functional decline 2. Maximize quality of life 3. Control pain Strategies: - Activity/exercise program recommendation - Conservative stepwise pain medicine strategy with multi-disciplinary approach - Recommend healthy lifestyle strategies and compensatory methods as needed Reduce the likelihood of falling Lifestyle No Beverley Diaz Note: Below are four things you can do to prevent falls: 1. Begin an exercise program to improve your leg strength & balance 2. Ask your doctor or pharmacist to review your medicines 3. Get annual eye check-ups & update your eyeglasses 4. Make your home safer by: Removing clutter & tripping hazards Putting railings on all stairs & adding grab bars in the bathroom Having good lighting, especially on stairs Contact your local community or senior center for information on exercise, fall prevention programs, or options for improving home safety. documented as of this encounter Procedures Procedure Name Priority Date/Time Associated Diagnosis Comments CARDIOLOGY DOCUMENT SCAN 09/29/2018 documented in this encounter Results * SCAN - CARDIOLOGY (09/29/2018) Anatomical Region Laterality Modality Other us Provider Scanning CV CARDIAC SERVICES PROCEDURES Final Result documented in this encounter Visit Diagnoses Not on filedocumented in this encounter Additional Health Concerns Infection Onset Date Last Indicated Resolved Time COVID: Suspected 04/03/2021 04/03/2021 04/03/2021 3:54 PM CDT COVID: Suspected 05/22/2021 05/22/2021 05/22/2021 1:02 PM CROWN PRESSER COVID19 05/22/2021 05/22/2021 06/05/2021 3:06 AM CROWN PRESSER COVID: Recovered Comment:Added based on recent COVID infection. 06/05/2021 07/24/2021 10/03/2021 3:05 AM C DT documented as of this encounter Care Teams Gold Leaf Layer Relationship Specialty Start Date End Date Rick Melissa MD [address] [facility] [place] [address] PCP - General Cardiovascular Disease 01/16/18 documented as of this encounter
--- OUTSIDE RECORDS SUMMARY | 2024-08-28 08:02 | XMS_ITS | Encounter Summary ---
Author Organization [facility] Address [address] [place] [address] Care Team Providers Care Pot Firer Name Role Phone Cassandra Gaona MD Primary Care Provider Encounter Details Date Type Department Care Team (Late st Contact Info) Description 05/28/2024 [facility] Message Enc [facility] brittnee [address] [facility] [address] [place] [address] Mara Verma FNP 3 [facility] [address] [place] [address] Duplicate Appointments? Social History Tobacco Use Types Packs/Day Years Used Date Smoking Tobacco: Former Cigarettes 1 15 0 06/17/1975 - 06/17/1990 Smokeless Tobacco: Former Quit: 02/23/1991 Comments:Counseled by Dr. Samanta hernández. Alcohol Use Standard Drinks/Week Comments Not Currently 0 (1 standard drink = 0.6 oz pur e alcohol) no alcohol since 2007 [facility] Utilities Answer Date Recorded In the past 12 months has e electric, gas, oil, or water company threatened to shut off services in your home? No 12/18/2023 Humiliation, Afraid, Rape, and Kick questionnair e Answer Date Recorded Within the last year, have y ou been afraid of your partner or ex-partner? No 12/18/2023 Within the last year, have y ou been humiliated or emotionally abused in other ways by your partner or ex-partner? No Within the last year, have y ou been kicked, hit, slapped, or otherwise physically hurt by your partner or ex-partner? No 12/18/2023 Within the last year, have y ou been raped or forced to have any kind of sexual activity by your partner or ex-partner? No 12/18/2023 Overall Financial Resource Strain (CARDIA) Answe r Date Recorded How hard is it for you to pa y for the very basics like food, housing, medical care, and heating? Not hard at all 12/18/2023 PHQ-2 Answer Date Recorded Patient Health Questionnaire-2 Score 0 01/31/2024 Hunger Vital Sign Answer Date Recorded Within the past 12 months, y ou worried that your food would run out before you got the money to buy more. Never true 12/18/19 24 Within the past 12 months, t he food you bought just didn't last and you didn't have money to get more. Never true 12/18/2023 PRAPARE - Transportation Answer Date Re corded In the past 12 months, has l ack of transportation kept you from medical appointments or from getting medications? No 08/2023 In the past 12 months, has l ack of transportation kept you from meetings, work, or from getting things needed for daily living? No 12/18/2023 Housing Stability Vital Sign Answer Trung e Recorded In the last 12 months, was t here a time when you were not able to pay the mortgage or rent on time? No 12/18/2023 In the past 12 months, how m any times have you moved where you were living? 1 12/18/2023 At any time in the past 12 m [facility], were you homeless or living in a [place] health care facility (including now)? No 12/18/2023 Sex and Gender Information Value Date Recorded Sex Assigned at Male 07/22/2024 9:04 AM REINSURANCE ACCOUNTANT Legal Sex Male 1:11 PM REINSURANCE ACCOUNTANT Gender Identity Male 07/22/2024 9:04 AM REINSURANCE ACCOUNTANT Sexual Orientation Straight 07/22/2024 9: 04 AM REINSURANCE ACCOUNTANT documented as of this encounter Functional Status * Are you deaf or do you have serious difficulty hearing Answer Date of Assessment Author Status No 12/18/2023 5:43 PM Mika Colunga RN Active * Are you blind or do you have serious difficulty seeing, even when wearing glasses? Answer Date of Assessment Author Status No 12/18/2023 5:43 PM CDT Mika Greco RN Active * Do you have serious difficulty walking or climbing stairs? Answer Date of Assessment Author Status No 12/18/2023 5:43 PM CDT Mika Greco RN Active * Do you have difficulty dressing or bathing? Answer Date of Assessment Author Status No 12/18/2023 5:43 PM CDT Mika Greco RN Active * Because of a physical, mental, or emotional condition, do you have difficulty doing errands alone such as visiting a doctor's office or shopping? Answer Date of Assessment Author Status No 12/18/2023 5:43 PM CDT Mika Greco RN Active documented as of this encounter Mental Status * Because of a physical, mental, or emotional condition, do you have serious difficulty concentrating, remembering, or making decisions? Answer Entry Date Author Status No 12/18/2023 5:43 PM CDT Mika Greco RN Active documented in this encounter Plan of Treatment Upcoming Encounters Date Type Department Care Team (Late st Contact Info) Description 09/07/2024 9:20 AM CDT Appointment [facility] [place] [address] [phone] Papo Greco, ELIGIBILITY AND OCCUPANCY INTERVIEWER [address] [address] [phone] (Work) 10/21/2024 10:00 AM CDT Allied Health/Nurse Visit [facility] - [address] [address] [address] [place] [address] [place] [address] [place] [address] 11/30/2024 9:30 AM CDT Office Visit [facility] [address] Misha Clements MD [address] [facility] [address] [place] [address] 12/25/2024 10:40 AM CDT Office Visit [facility] - [facility] [address] [facility], [address] [place] [address] Khadijah Black NP [address] [facility] [address] [place] [address] documented as of this encounter Visit Diagnoses Not on filedocumented in this encounter Additional Health Concerns Assessment Noted Time PHQ-9 Depression Total Score: 2 01/31/20 10:35 AM CDT documented as of this encounter Care Teams Pot Firer Relationship Specialty Start Date End Date Cassandra Gaona MD [address] [facility] [address] [place] [address] PCP - General INTERNAL MEDICINE 07/15/23 documented as of this encounter
--- OUTSIDE RECORDS SUMMARY | 2024-08-28 08:02 | XMS_ITS | Encounter Summary ---
Author Organization [facility] Address 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 Gender Identity Not on file Sexual Orientation Not on file documented as of this encounter Plan of Treatment Not on file documented as of this encounter Procedures Procedure Name Priority Date/Time Associated Diagnosis Comments XR CHEST PA AND LATERAL 2 VW Routine 01/20/2009 1:49 PM CDT documented in this encounter Results * XR CHEST PA AND LATERAL (01/20/2009 1:49 PM CDT) Anatomical Region Laterality Modality Chest Other 01/20/2009 1:49 PM CDT Narrative 01/20/2009 1:59 PM CDT [facility] [address] [place], [place] [address] Admit Date: 01/20/2009 AISA DILL Sex: M Admit Prov: ER, AUTHORIZED P Date: 1950 Primary Care Prov: PCP, NONE CMRN: [id number] Room: ER-A SSN: [id number] IMAGING SERVICES Ordering Prov: N/A Accession Number: [id number] Interpretation Chest 2 views, 01/20/2009 Indication: Lump on back Findings: A marker was placed on the patient's skin at the site of interest. There is no associated osseous or gross soft tissue abnormality at the marker which superimposes the right upper chest on the PA view. The lungs are clear. There is no pleural effusion, pneumothorax, or pulmonary edema. Wire sternal sutures are related to prior cardiac surgery. Otherwise the heart size and mediastinal silhouette are normal. There are no acute osseous abnormalities. Impression: No radiographic abnormality corresponding to the region of interest at the right upper back. No acute disease. . Dictated by: OSVALDO ASHLEY 01/20/2009 13:55 Electronically signed by: OSVALDO ASHLEY 01/20/2009 13:58 Procedure Note Osvaldo Ashley MD - 01/20/2009 [address] [place], [place] [address] Admit Date: 01/20/2009 ASIA DILL Sex: M Admit Prov: ER, AUTHORIZED P Date: 1950 Primary Care Prov: PCP, NONE CMRN: [id number] Room: [facility] SSN: [id number] IMAGING SERVICES Ordering Prov: N/A Interpretation Chest 2 views, 01/20/2009 Indication: Lump on back Findings: A marker was placed on the patient's skin at the site of interest. There is no associated osseous or gross soft tissueabnormality at the marker which superimposes the right upper chest on the PAview. The lungs are clear. There is no pleural effusion, pneumothorax, orpulmonary edema. Wire sternal sutures are related to prior cardiac surgery.Otherwise the heart size and mediastinal silhouette are normal. There are noacute osseous abnormalities. Impression: No radiographic abnormality corresponding to the region of interestat the right upper back. No acute disease. . Dictated by: OSVALDO ASHLEY 01/20/2009 13:55 Electronically signed by: OSVALDO ASHLEY 01/20/2009 13:58 us Christine Medina MD DIAGNOSTIC IMAGING ORDERABLE S Final Result documented in this encounter Visit Diagnoses Diagnosis Lipoma of other skin and subcutaneous tissue documented in this encounter Care Teams Adult Education Manager Relationship Specialty Start Date End Date Rick Melissa MD [address] [place] [address] [address] [place] [id number] PCP - General Interventional Cardiology 04/14/13 documented as of this encounter
--- OUTSIDE RECORDS SUMMARY | 2024-08-28 08:02 | XMS_ITS | Referral Summary ---
Author Organization [facility] Address [address] [facility] [place] [address] Care Team Providers Care Rubber Mold Maker Name Role Phone Rick Jarquin MD Unavailable [phone] Rick Melissa MD Primary Care Provider [phone] Dotty Michaud MD Unavailable [phone] Source Comments [facility],non-owned Affiliates and Associated Physician Practices is amultiple site organization consisting of ambulatory clinics and hospital sitesin [place], [place], [place] and [place]. This disclosure is being madepursuant to the Care Everywhere program and may not contain all information available regarding this patient. Last updated [email or web address] Allergies Active Allergy Reactions Criticality Noted Date Comments Mercury Swelling 06/23/2007 Rashes and swelling Medications * Be aware that medications may not be up to date on this document. Alwaysverify current medications with the patient. Medication Sig Dispensed Refills Start Date End Date Status RABEprazole EC (ACIPHEX) 20 MG tabletIndications:Kn ee pain, left,AVN (avascular necrosis of bone) ([facility]),Primary osteoarthritis of left knee Take 20 mg by mouth every evening Active FOLIC ACID POIndications:Knee pain, left,AVN (avascular necrosis of bone) (HCC),Primary osteoarthritis of left knee Take 800 mcg by mouth every evening Active B Complex-Folic Acid (SUPER B COMPLEX MAXI PO) Take by mouth every evening Active Multiple Vitamins-Minerals (MULTI COMPLETE PO) Take by mouth every evening Active sildenafil (VIAGRA) 50 MG tablet Take 50 mg by mouth once daily as needed Active traMADol (ULTRAM) 50 MG tablet Take 1-2 Tabs by mouth every 6 hours as needed for Pain 100 Tab 1 04/02/2016 Active Additional Information Patient not taking.Reported on 09/04/2016 diclofenac sodium (VOLTAREN) 1 % gelIndications:Prima ry osteoarthritis of left knee,Iliotibial band syndrome of left side Apply 4 g to affected area 4 times daily Apply to affected knee 5 Tube 3 05/08/2016 Active Additional Information Patient not taking.Reported on 09/04/2016 ALPRAZolam (XANAX) 0.5 MG tabletIndications:Pr imary osteoarthritis of left knee,Iliotibial band syndrome of left side Take 1 Tab by mouth at bedtime 30 Tab 1 05/08/2016 Active Additional Information Patient not taking.Reported on 03/07/2017 diclofenac sodium EC (VOLTAREN) 75 MG tablet Take 1 Tab by mouth 2 times daily 180 Tab 3 06/14/2016 Active Additional Information Patient not taking.Reported on 09/04/2016 aspirin (ASPIRIN) 81 MG tablet Take 81 mg by mouth once daily Active nabumetone (RELAFEN) 750 MG tablet Take 1 tablet by mouth 2 times daily 180 tablet 3 03/28/2017 Active Active Problems Problem Noted Date Diagnosed Date Iliotibial band syndrome of left side 05/08/2016 Status post left knee replacement 03/22/2016 Primary osteoarthritis of left knee 01/23/2016 Immunizations Name Administration Dates Next Due INFLUENZA VACCINE, QUADR. (F LUZONE; FLULAVAL; FLUARIX; AFLURIA QUADRIVALENT; 6MO+), 0.5 ML (IIV4) 03/02/2016 Social History Tobacco Use Types Packs/Day Years Used Date Smoking Tobacco: Former Alcohol Use Standard Drinks/Week Comments No 0 (1 standard drink = 0.6 oz pur e alcohol) Sex and Gender Information Value Date Recorded Sex Assigned at Not on file Gender Identity Not on file Sexual Orientation Not on file Last Filed Vital Signs Vital Sign Reading Time Taken Comments Blood Pressure 126/60 03/03/2016 8:08 AM CDT Pulse 65 03/03/2016 8:08 AM CDT Temperature 36.8 C (98.2 F) 03/03/2016 8:08 AM CDT Respiratory Rate 18 03/03/2016 8:08 AM CDT Oxygen Saturation 96% 03/03/2016 8:08 AM CDT Inhaled Oxygen Concentration - - Weight 73 kg (161 lb) 03/01/2016 7:14 AM CDT Height 175.3 cm (5' 9 ) 03/01/2016 7:14 AM CDT Body Mass Index 23.78 03/01/2016 7:14 AM CDT Functional Status Functional Status Response Date of Assess ment Is person deaf or have serious hearing difficult y? No 03/01/2016 Is person blind or have serious difficulty seein g? No 03/01/2016 Does person have serious dif ficulty walking/climbing stairs? No 03/01/2016 Does person have difficulty dressing/bathing? No 03/01/2016 Does person have difficulty doing errands alone? No 03/01/2016 Cognitive Status Response Date of Assessm ent Does person have difficulty concentrating/remembering/making decisions? No 03/01/2016 Plan of Treatment Not on file Medical Devices Implanted Type Area Marketing Performance Analyst Device Identifier Shelf Expiration Date Model / Serial / Lot Mayank Bone [place] Hv Implanted:Qty: 1 on 03/01/2016 by Rick Jarquin MD at [facility] Left: Knee [employer] 05/16/2017 [id number] / / [id number] Butn Pat Arcom Wire Polyeth Sm 31 X 8mm Implanted:Qty: 1 on 03/01/2016 by Rick Jarquin MD at [facility] Left: Knee [employer] 12/21/2020 [id number] / / [id number] Kn Ins [place] Fem Cocr Intlok L 67.5mm Implanted:Qty: 1 on 03/01/2016 by Rick Jarquin MD at [facility] Left: Knee [employer] 11/13/2025 [id number] / / [id number] Ty Tibial I Beam Fix Bar 79mm Implanted:Qty: 1 on 03/01/2016 by Rick Jarquin MD at [facility] Left: Knee [employer] 12/05/2025 [id number] / / [id number] Implt Tibial Bear Ant Stab 12mm X 79mm Implanted:Qty: 1 on 03/01/2016 by Rick Jarquin MD at [facility] Left: Knee [employer] 11/10/2020 [id number] / / [id number] Administered Medications Advance Directives * Full Code (Latest Code Status on File) Date Activated Date Inactivated Comments 03/01/2016 12:35 PM 03/03/2016 12:35 PM Care Teams Rubber Mold Maker Relationship Specialty Start Date End Date Rick Melissa MD [address] [facility] [address] [place] [address] PCP - General Cardiovascular Disease 04/07/15 [place] [address] [place] [address] Orthopedic Surgery 04/07/15 [place] [address] [place] [address] Orthopedic Surgery 05/18/15
--- OUTSIDE RECORDS SUMMARY | 2024-08-28 08:02 | XMS_ITS | Clinical Summary ---
Author Organization [facility] Address [address] [place] [id number] Care Team Providers Care Transmission And Coordination Engineer Name Role Phone Cassandra Gaona MD Primary Care Provider [phone] Allergies Active Allergy Reactions Criticality Noted Date Comments Eszopiclone Anxiety Low 09/30/2023 Aggressive Mercury Unknown 06/23/2007 Phenylmercuric Nitrate Hives High 03/23/2009 Thimerosal Fatigue,Rash,GI Upset,Myalgias Medium 06/17/1949 Medications aspirin EC (ASPIRIN ADULT LOW DOSE) 81 MG tablet 06/17/19 09 Active tamsulosin (FLOMAX) 0.4 MG Cap 06/17/19 22 Active Multiple Vitamins-Mineral s (MULTIVITAMIN WOMEN 50+ OR) Take 1 tablet by mouth daily. Active REPATHA 140 MG/ML injection (SYRINGE)Indicat ions:Coronary artery disease involving qawalangin coronary artery without angina pectoris, unspecified whether qawalangin or transplanted heart,Myocardial infarction, unspecified [place] type, unspecified artery ([facility]/HCC [facility]) Inject 1 mL (140 mg total) into the skin every 14 (fourteen) days. 6 mL 11 07/22/19 25 Active RABEprazole EC (ACIPHEX) 20 MG tabletIndication s:Gastroesophage al reflux disease without esophagitis Take 1 tablet (20 mg total) by mouth daily. 90 tablet 1 07/22/19 25 Active fenofibrate 160 MG tabletIndication s:Hypertriglycer idemia Take 1 tablet (160 mg total) by mouth daily. 90 tablet 1 07/22/19 25 Active DULoxetine (CYMBALTA) 30 MG capsuleIndicatio ns:Chronic midline low back pain without sciatica Take 1 capsule (30 mg total) by mouth daily. 90 capsule 1 07/22/19 25 Active famotidine (PEPCID) 40 MG tabletIndication s:Gastroesophage al reflux disease without esophagitis Take 0.5 tablets (20 mg total) by mouth 2 (two) times daily. 60 tablet 07/22/19 25 Active ALPRAZolam (XANAX) 0.5 MG tabletIndication s:Primary insomnia Take 1 tablet (0.5 mg total) by mouth nightly as needed for Sleep. 90 tablet 08/04/19 25 Active sildenafil (VIAGRA) 100 MG tablet 06/17/19 20 Active ticagrelor (BRILINTA) 90 mg tablet TAKE 1 TABLET TWICE A DAY 180 tablet 1 08/25/19 25 Active ticagrelor (BRILINTA) 90 mg tablet take 1 tablet twice a day 180 tablet 1 03/13/20 24 025 Discontinued ALPRAZolam (XANAX) 0.5 MG tabletIndication s:Primary insomnia TAKE ONE-HALF (1/2) TABLET NIGHTLY NEEDED FOR SLEEP 30 tablet 05/13/20 24 025 Discontinued(Re order) ranolazine ER (RANEXA) 500 MG 12 hr tabletIndication s:NSTEMI (non-ST elevated myocardial infarction) (CMS/HCC HHS/HCC) Take 1 tablet (500 mg total) by mouth 2 (two) times daily. 180 tablet 3 07/22/19 25 025 Discontinued(Pt . elected to discontinue med) Active Problems Problem Noted Date Diagnosed Date Lower back pain 03/17/2023 Benign prostatic hyperplasia with weak urinary s tream 07/23/2022 Overview (08/28/2023): Last Assessment & Plan: -On tamsulosin 0.4mg. Reports somewhat weak stream but overall happy with voiding pattern. -Denies gross hematuria, dysuria. -PVR low at 5 mL. PLAN: -Continue tamsulosin 0.4mg daily. Erectile dysfunction due to diseases classified elsewhere 07/23/2022 Overview (08/28/2023): Last Assessment & Plan: -Using trimix but not very often as he feels it causes some numbness around side of injection post use. -Viagra does work for him and thinking of using this mainly. PLAN: -Would recommend viagra use if working for him. Do not combine medications and use one or the other. Shoulder pain 08/15/2021 Chronic pain syndrome 04/18/2018 Spondylosis of lumbar region without myelopathy or radiculopathy 04/18/2018 Atherosclerosis of coronary artery 02/17/2018 GERD (gastroesophageal reflux disease) 8 Myocardial infarction ([facility]) 02/18/20 18 Transient ischemic attack (TIA) 02/17/2018 Iliotibial band syndrome of left side 05/08/2016 Status post left knee replacement 03/22/2016 Primary osteoarthritis of left knee 01/23/2016 Resolved Problems Problem Noted Date Diagnosed Date Resolved Date Chest pain 12/18/2023 08/26/2024 Sacroiliitis 04/18/2018 01/31/2024 Encounters Date Type Department Care Team Description 08/26/2024 1:00 PM CDT Office Visit [facility] [address] [facility], [address] [place] [address] Khadijah Black NP Establish Care; Memory Loss (X 1 year) 08/26/2024 Travel 08/14/2024 3:00 PM MACHINE TOOL DESIGNER [facility] [place] - [address] [place] [address] Cassandra Gaona MD Follow Up (MRI results ) 08/14/2024 Travel 08/12/2024 Telephone [place] [address] [facility] [address] [place] [address] Cassandra Gaona MD Appointment Request 08/11/2024 9:10 AM MACHINE TOOL DESIGNER - 08/11/2024 11:59 PM MACHINE TOOL DESIGNER Hospital Encounter [facility] [place] [address] Cassandra Gaona MD Discharge Disposition: Home or Self Care (Routine Discharge) 08/11/2024 Travel 08/03/2024 MyChart Message Enc [facility] - [place] [address] [place] [address] Aissatou George NP Prescription cancelled 07/22/2024 9:00 AM MACHINE TOOL DESIGNER Office Visit [facility] [place] [address] [place] [address] Cassandra Gaona MD Follow Up (Chronic medical issues); Hyperlipidemia; Benign Prostatic Hypertrophy; Insomnia NOS; Anxiety; Nausea (States its been ongoing a week. States being away for 3 weeks might be related ) 07/22/2024 Travel from Last 3 Months Immunizations Name Administration Dates Next Due Fluzone High Dose - >Age 65 (Prefilled Syringe) 02/08/2023,07/10/2021 Influenza (Generic) 02/29/2020,05/27/2012 Influenza Adult (Generic) 05/14/2024,04/07/2018, 03/02/2016 Pneumococcal (Pneumovax 23) 07/25/2018 Pneumococcal (Prevnar 13) 07/28/2017 Pneumococcal (Prevnar 20) 02/08/2023 Shingrix 05/11/2023,02/08/2023 Zoster (Zostavax) [address] Unt/0.65Ml 07/28/2017 Family History Medical History Relation Comments Diabetes Maternal Grandmother Relation Status Comments Maternal Grandmother Social History Tobacco Use Types Packs/Day Years Used Date Smoking Tobacco: Former Cigarettes 1 15 0 06/17/1975 - 06/17/1990 Smokeless Tobacco: Former Quit: 02/23/1991 Tobacco Cessation:Counseling Given: Yes Comments:Counseled by Dr. Gaona. Alcohol Use Standard Drinks/Week Comments Not Currently 0 (1 standard drink = 0.6 oz pur e alcohol) no alcohol since 2007 [facility] Utilities Answer Date Recorded In the past 12 months has [employer] electric, gas, oil, or water company threatened [...] Date Recorded Patient Health Questionnaire-2 Score 0 08/14/2024 Hunger Vital Sign Answer Date Recorded Within [...] time in the past 12 m [facility], were you homeless or living in a long term (including now)? No 12/18/2023 Sex and Gender Information Value Date Recorded Sex Assigned at Male 07/22/2024 9:04 AM MACHINE TOOL DESIGNER Legal Sex Male 1:11 PM MACHINE TOOL DESIGNER Gender Identity Male 07/22/2024 9:04 AM MACHINE TOOL DESIGNER Sexual Orientation Straight 07/22/2024 9: 04 AM MACHINE TOOL DESIGNER Last Filed Vital Signs Vital Sign Reading Time Taken Comments Blood Pressure 148/78 08/26/2024 2:17 PM CDT Pulse 53 08/26/2024 1:27 PM CDT Temperature 36.2 C (97.1 F) 08/26/2024 1:27 PM CDT Respiratory Rate 14 08/26/2024 1:27 PM CDT Oxygen Saturation 97% 08/26/2024 1:27 PM CDT Inhaled Oxygen Concentration - - Weight 72.6 kg (160 lb) 08/26/2024 1:27 PM CDT Height 172.7 cm (5' 8 ) 08/26/2024 1:27 PM CDT Body Mass Index 24.33 08/26/2024 1:27 PM CDT Plan of Treatment Upcoming Encounters Date Type Department Care Team (Late st Contact Info) Description 09/07/2024 9:20 AM CDT Appointment [facility] [place] [address] [phone] Papo Greco, [employer] [address] [facility] [address] [place] [address] [phone] (Work) 10/21/2024 10:00 AM CDT Allied Health/Nurse Visit [facility] - [place] [address] [address] [place] [address] Cassandra Gaona MD [address] [place] [address] 11/30/2024 9:30 AM CDT Office Visit [facility]-[address] [address] Misha Clements MD [facility] [address] [place] [address] 12/25/2024 10:40 AM CDT Office Visit [facility] - [facility] [address] [facility], [address] [place] [id number] Khadijah Black, ASSISTANT FOOTBALL COACH [address] [facility] [address] [place] [address] Health Maintenance Due Date Last Done Comments ASCVD Statin 1950 DTaP, Tdap and Td Vaccines (1 - Tdap) 11/10/1967 RSV Immunization or 60+ Years (1 - 1-dose 75+ series) 11/10/2023 COVID-19 Vaccine ( - season) 2024 07/10/2021, 10/01/2020, 09/10/2020 Annual Medicare Wellness Visit 04/08/2025 Postponed from 2013 (Patient Refused) Colorectal Cancer Screening FIT-DNA (3 Years) 09/03/2026 09/04/2023, 09/04/2023 Pneumococcal Vaccine: 65+ Years Completed 02/08/2023, 07/25/2018, 07/28/2017 Zoster Vaccines Completed 05/11/2023, 01/16, 07/28/2017 Hepatitis C Completed 08/28/2023 AAA SCREENING Completed 10/09/2023 Influenza Adult Completed 05/14/2024, 01/16, 07/10/2021, Additional history exists PHQ-2 (Physician [place]) Completed 08/14/2024 Meningococcal B Vaccine Aged Out No l onger eligible based on patient's age to complete this topic Meningococcal Vaccine Aged Out No brittnee brian eligible based on patient's age to complete this topic RSV Immunizations Under 20 Months Aged Out No longer eligible based on patient's age to complete this topic Procedures Procedure Name Priority Date/Time Associated Diagnosis Comments MRI BRAIN WO CON Routine 08/11/2024 9:48 AM MACHINE TOOL DESIGNER Memory changes MRI LUMB SPINE WO CON Routine 08/11/2024 9:48 AM MACHINE TOOL DESIGNER Chronic midline low back pain without sciatica VITAMIN B-12 Routine 07/22/2024 9:46 AM MACHINE TOOL DESIGNER Memory changes TSH W/REFLEX Routine 07/22/2024 9:46 AM MACHINE TOOL DESIGNER Memory changes COMPREHENSIVE METABOLIC PANEL Routine 07/22/2024 9:46 AM MACHINE TOOL DESIGNER Memory changes CBC W/DIFF AUTOMATED Routine 07/22/2024 9:46 AM MACHINE TOOL DESIGNER Memory changes COLLECTION VENOUS BLOOD VENIPUNCTURE Routine 07/22/2024 9:35 AM MACHINE TOOL DESIGNER Memory changes US AORTA Routine 10/09/2023 11:53 AM CDT Screening for AAA (abdominal aortic aneurysm) COLOGUARD (EXACT SCIENCE) Routine 09/04/2023 9:30 AM CDT Screen for colon cancer HEPATITIS C ANTIBODY Routine 08/28/2023 8:58 AM CDT Annual physical exam Establishing care with new doctor, encounter for General medical exam Encounter for hepatitis C screening test for low risk patient from Last 3 Months or Most Recently Relevant to Health Maintenance Results * MRI BRAIN WO CON (08/11/2024 9:48 AM MACHINE TOOL DESIGNER) Anatomical Region Laterality Modality Head Magnetic Resonan ce 08/12/2024 8:42 AM MACHINE TOOL DESIGNER Impressions 08/12/2024 8:57 AM MACHINE TOOL DESIGNER IMPRESSION: 1. No acute intracranial abnormality. 2. Old left cerebellar infarct. 3. Mild chronic small vessel ischemic change. 4. Mild to moderate chronic appearing inferior endplate L1 compression fracture deformity. 5. Mild to moderate multilevel lumbar spondylosis, as described above. Ordered By: CASSANDRA GAONA Interpreted By: Dino Alejo MD, 08/12/2024 8:42 AM Narrative 08/12/2024 8:57 AM MACHINE TOOL DESIGNER [facility] [address] [place], [place] [address] EXAMINATION: MRI brain, MRI lumbar spine. [id number] EXAM DATE/TIME: 08/11/2024 9:13 AM REASON FOR EXAM: memory changes COMPARISON: None available TECHNIQUE: Multiplanar multisequence magnetic resonance images of the brain and lumbar spine were obtained without intravenous contrast. FINDINGS: MRI brain: There is no restricted diffusion to suggest an acute infarction. No hemorrhagic focus of susceptibility. Few scattered subcortical white matter T2 FLAIR hyperintensities that are nonspecific but most commonly seen in the setting of chronic small vessel ischemic change. The sellar, callosal, pineal, and craniovertebral junction regions appear within normal limits. No extra-axial collection. The ventricles are normal in size. The basal cisterns appear normal. Old infarct involving the superior aspect the left cerebellar hemisphere. Proximal intracranial arterial flow voids have a normal appearance. Prior bilateral ocular lens extractions with prosthetic lens implantation. Orbital contents appear normal. Paranasal sinuses and mastoid air cells are well aerated. MRI lumbar spine: There are 5 nonrib-bearing lumbar-type vertebral bodies. The lumbar vertebral bodies and facets are well aligned. The lumbar vertebral body heights are preserved. Mild to moderate compression fracture deformity involving the inferior endplate of L1. Intervertebral disc height loss at L1-2 and L2-3 with endplate degenerative change at these levels. The conus medullaris terminates at L1, normal. There is a normal distribution of the cauda equina within the thecal sac. There is a 2.9 cm aneurysm involving the infrarenal abdominal aorta L1-2: Disc bulge impressing the ventral thecal sac. Mild to moderate spinal canal stenosis. Moderate facet hypertrophy. Moderate to severe left neural foraminal stenosis. Moderate right neural foraminal stenosis. L2-3: Disc bulge impressing the ventral thecal sac. Mild spinal canal stenosis. Moderate to marked facet hypertrophy. Moderate to severe left neural foraminal stenosis. Mild right neural foraminal stenosis. L3-4: Disc bulge impressing the ventral thecal sac. Mild spinal canal stenosis. Moderate facet hypertrophy. Mild bilateral neural foraminal stenosis. L4-5: Disc bulge impressing the ventral thecal sac. Mild to moderate spinal canal stenosis. Moderate facet hypertrophy. Mild to moderate left neural foraminal stenosis. Moderate right neural foraminal stenosis. L5-S1: No spinal canal stenosis. Moderate facet hypertrophy. Mild to moderate bilateral neural foraminal stenosis. Procedure Note Dino Alejo MD - 08/12/2024 [facility] [address] [place], [place] [address] EXAMINATION: MRI brain, MRI lumbar spine. [id number] EXAM DATE/TIME: 08/11/2024 9:13 AM REASON FOR EXAM: memory changes COMPARISON: None available TECHNIQUE: Multiplanar multisequence magnetic resonance images of thebrain and lumbar spine were obtained without intravenous contrast. FINDINGS: MRI brain: There is no restricted diffusion to suggest an acuteinfarction. No hemorrhagic focus of susceptibility. Few scatteredsubcortical white matter T2 FLAIR hyperintensities that are nonspecificbut most commonly seen in the setting of chronic small vessel ischemicchange. The sellar, callosal, pineal, and craniovertebral junction regionsappear within normal limits. No extra-axial collection. The ventricles are normal in size. The basalcisterns appear normal. Old infarct involving the superior aspect the leftcerebellar hemisphere. Proximal intracranial arterial flow voids have anormal appearance. Prior bilateral ocular lens extractions with prostheticlens implantation. Orbital contents appear normal. Paranasal sinuses andmastoid air cells are well aerated. MRI lumbar spine: There are 5 nonrib-bearing lumbar-type vertebral bodies.The lumbar vertebral bodies and facets are well aligned. The lumbarvertebral body heights are preserved. Mild to moderate compressionfracture deformity involving the inferior endplate of L1. Intervertebraldisc height loss at L1-2 and L2-3 with endplate degenerative change atthese levels. The conus medullaris terminates at L1, normal. There is anormal distribution of the cauda equina within the thecal sac. There is a2.9 cm aneurysm involving the infrarenal abdominal aorta L1-2: Disc bulge impressing the ventral thecal sac. Mild to moderatespinal canal stenosis. Moderate facet hypertrophy. Moderate to severe leftneural foraminal stenosis. Moderate right neural foraminal stenosis. L2-3: Disc bulge impressing the ventral thecal sac. Mild spinal canalstenosis. Moderate to marked facet hypertrophy. Moderate to severe leftneural foraminal stenosis. Mild right neural foraminal stenosis. L3-4: Disc bulge impressing the ventral thecal sac. Mild spinal canalstenosis. Moderate facet hypertrophy. Mild bilateral neural foraminalstenosis. L4-5: Disc bulge impressing the ventral thecal sac. Mild to moderatespinal canal stenosis. Moderate facet hypertrophy. Mild to moderate leftneural foraminal stenosis. Moderate right neural foraminal stenosis. L5-S1: No spinal canal stenosis. Moderate facet hypertrophy. Mild tomoderate bilateral neural foraminal stenosis. IMPRESSION: 1. No acute intracranial abnormality. 2. Old left cerebellar infarct. 3. Mild chronic small vessel ischemic change. 4. Mild to moderate chronic appearing inferior endplate L1 compressionfracture deformity. 5. Mild to moderate multilevel lumbar spondylosis, as described above. Ordered By: CASSANDRA GAONA Interpreted By: Dino Alejo MD, 08/12/2024 8:42 AM Cassandra Gaona MD MRI Final Result * MRI LUMB SPINE WO CON (08/11/2024 9:48 AM MACHINE TOOL DESIGNER) Anatomical Region Laterality Modality Spine Magnetic Resonan ce 08/12/2024 8:42 AM MACHINE TOOL DESIGNER Impressions 08/12/2024 8:57 AM MACHINE TOOL DESIGNER IMPRESSION: 1. No acute intracranial abnormality. 2. Old left cerebellar infarct. 3. Mild chronic small vessel ischemic change. 4. Mild to moderate chronic appearing inferior endplate L1 compression fracture deformity. 5. Mild to moderate multilevel lumbar spondylosis, as described above. Ordered By: CASSANDRA GAONA Interpreted By: Dino Alejo MD, 08/12/2024 8:42 AM Narrative 08/12/2024 8:57 AM MACHINE TOOL DESIGNER [facility] [address] [place], [place] [address] EXAMINATION: MRI brain, MRI lumbar spine. [id number] EXAM DATE/TIME: 08/11/2024 9:13 AM REASON FOR EXAM: memory changes COMPARISON: None available TECHNIQUE: Multiplanar multisequence magnetic resonance images of the brain and lumbar spine were obtained without intravenous contrast. FINDINGS: MRI brain: There is no restricted diffusion to suggest an acute infarction. No hemorrhagic focus of susceptibility. Few scattered subcortical white matter T2 FLAIR hyperintensities that are nonspecific but most commonly seen in the setting of chronic small vessel ischemic change. The sellar, callosal, pineal, and craniovertebral junction regions appear within normal limits. No extra-axial collection. The ventricles are normal in size. The basal cisterns appear normal. Old infarct involving the superior aspect the left cerebellar hemisphere. Proximal intracranial arterial flow voids have a normal appearance. Prior bilateral ocular lens extractions with prosthetic lens implantation. Orbital contents appear normal. Paranasal sinuses and mastoid air cells are well aerated. MRI lumbar spine: There are 5 nonrib-bearing lumbar-type vertebral bodies. The lumbar vertebral bodies and facets are well aligned. The lumbar vertebral body heights are preserved. Mild to moderate compression fracture deformity involving the inferior endplate of L1. Intervertebral disc height loss at L1-2 and L2-3 with endplate degenerative change at these levels. The conus medullaris terminates at L1, normal. There is a normal distribution of the cauda equina within the thecal sac. There is a 2.9 cm aneurysm involving the infrarenal abdominal aorta L1-2: Disc bulge impressing the ventral thecal sac. Mild to moderate spinal canal stenosis. Moderate facet hypertrophy. Moderate to severe left neural foraminal stenosis. Moderate right neural foraminal stenosis. L2-3: Disc bulge impressing the ventral thecal sac. Mild spinal canal stenosis. Moderate to marked facet hypertrophy. Moderate to severe left neural foraminal stenosis. Mild right neural foraminal stenosis. L3-4: Disc bulge impressing the ventral thecal sac. Mild spinal canal stenosis. Moderate facet hypertrophy. Mild bilateral neural foraminal stenosis. L4-5: Disc bulge impressing the ventral thecal sac. Mild to moderate spinal canal stenosis. Moderate facet hypertrophy. Mild to moderate left neural foraminal stenosis. Moderate right neural foraminal stenosis. L5-S1: No spinal canal stenosis. Moderate facet hypertrophy. Mild to moderate bilateral neural foraminal stenosis. Procedure Note Dino Alejo MD - 08/12/2024 [facility] [address] [place], [place] [address] EXAMINATION: MRI brain, MRI lumbar spine. [id number] EXAM DATE/TIME: 08/11/2024 9:13 AM REASON FOR EXAM: memory changes COMPARISON: None available TECHNIQUE: Multiplanar multisequence magnetic resonance images of thebrain and lumbar spine were obtained without intravenous contrast. FINDINGS: MRI brain: There is no restricted diffusion to suggest an acuteinfarction. No hemorrhagic focus of susceptibility. Few scatteredsubcortical white matter T2 FLAIR hyperintensities that are nonspecificbut most commonly seen in the setting of chronic small vessel ischemicchange. The sellar, callosal, pineal, and craniovertebral junction regionsappear within normal limits. No extra-axial collection. The ventricles are normal in size. The basalcisterns appear normal. Old infarct involving the superior aspect the leftcerebellar hemisphere. Proximal intracranial arterial flow voids have anormal appearance. Prior bilateral ocular lens extractions with prostheticlens implantation. Orbital contents appear normal. Paranasal sinuses andmastoid air cells are well aerated. MRI lumbar spine: There are 5 nonrib-bearing lumbar-type vertebral bodies.The lumbar vertebral bodies and facets are well aligned. The lumbarvertebral body heights are preserved. Mild to moderate compressionfracture deformity involving the inferior endplate of L1. Intervertebraldisc height loss at L1-2 and L2-3 with endplate degenerative change atthese levels. The conus medullaris terminates at L1, normal. There is anormal distribution of the cauda equina within the thecal sac. There is a2.9 cm aneurysm involving the infrarenal abdominal aorta L1-2: Disc bulge impressing the ventral thecal sac. Mild to moderatespinal canal stenosis. Moderate facet hypertrophy. Moderate to severe leftneural foraminal stenosis. Moderate right neural foraminal stenosis. L2-3: Disc bulge impressing the ventral thecal sac. Mild spinal canalstenosis. Moderate to marked facet hypertrophy. Moderate to severe leftneural foraminal stenosis. Mild right neural foraminal stenosis. L3-4: Disc bulge impressing the ventral thecal sac. Mild spinal canalstenosis. Moderate facet hypertrophy. Mild bilateral neural foraminalstenosis. L4-5: Disc bulge impressing the ventral thecal sac. Mild to moderatespinal canal stenosis. Moderate facet hypertrophy. Mild to moderate leftneural foraminal stenosis. Moderate right neural foraminal stenosis. L5-S1: No spinal canal stenosis. Moderate facet hypertrophy. Mild tomoderate bilateral neural foraminal stenosis. IMPRESSION: 1. No acute intracranial abnormality. 2. Old left cerebellar infarct. 3. Mild chronic small vessel ischemic change. 4. Mild to moderate chronic appearing inferior endplate L1 compressionfracture deformity. 5. Mild to moderate multilevel lumbar spondylosis, as described above. Ordered By: CASSANDRA GAONA Interpreted By: Dino Alejo MD, 08/12/2024 8:42 AM Cassandra Gaona MD MRI Final Result * TSH W/REFLEX (07/22/2024 9:46 AM MACHINE TOOL DESIGNER) TSH 2.245 0.358 - 3.740 uIU/ML 07/22/2024 3:58 PM MACHINE TOOL DESIGNER [facility] 07/22/2024 9:46 AM MACHINE TOOL DESIGNER us Cassandra Gaona MD LABORATORY Final Result Performing Organization Address [facility] [facility] de Phone Number [address] [address], [place] [phone] * VITAMIN B-12 (07/22/2024 9:46 AM MACHINE TOOL DESIGNER) VITAMIN B12 S/P/B 370 193 - 986 PG/ML 07/22/2024 3:58 PM MACHINE TOOL DESIGNER [facility] 07/22/2024 9:46 AM MACHINE TOOL DESIGNER us Cassandra Gaona MD LABORATORY Final Result Performing Organization Address [facility] de Phone Number [id number] [place] [address], [place] [phone] * (ABNORMAL) COMPREHENSIVE METABOLIC PANEL (07/22/2024 9:46 AM MACHINE TOOL DESIGNER) [facility] SODIUM S/P/B 142 136 - 145 MMOL/L 07/22/2024 3:58 PM [facility] POTASSIUM S/P/B 4.2 3.5 - 5.1 MMOL/L 07/22/2024 3:58 PM [facility] CHLORIDE S/P/B 104 98 - 107 MMOL/L 07/22/2024 3:58 PM [facility] CO2 29.7 21 - 32 MMOL/L 07/22/2024 3:58 PM [facility] GLUCOSE 94 70 - 99 MG/DL 07/22/2024 3:58 PM [facility] BUN 23(H) 7 - 18 MG/DL 07/22/2024 3:58 PM [facility] CREATININE S/P/B 1.05 0.70 - 1.30 MG/DL 07/22/2024 3:58 PM [facility] CALCIUM S/P/B 9.6 8.4 - 10.5 MG/DL 07/22/2024 3:58 PM [facility] BILIRUBIN TOTAL S/P/B 0.5 0.2 - 1.0 MG/DL 07/22/2024 3:58 PM [facility] ALKALINE PHOSPHATASE S/P/B 73 45 - 115 U/L 07/22/2024 3:58 PM [facility] AST 68(H) 15 - 37 U/L 07/22/2024 3:58 PM [facility] ALT 43 16 - 63 U/L 07/22/2024 3:58 PM [facility] TOTAL PROTEIN S/P/B 6.9 6.4 - 8.2 G/DL 07/22/2024 3:58 PM MACHINE TOOL DESIGNER [facility] ALBUMIN S/P/B 4.0 3.4 - 5.0 G/DL 07/22/2024 3:58 PM MACHINE TOOL DESIGNER [facility] ANION GAP 8.3 5 - 15 MMOL/L 07/22/2024 3:58 PM MACHINE TOOL DESIGNER [facility] Comment:REFERENCE RANGE NOT ESTABLISHED OSMOLALITY (CALC) 297 MOSM/KG 025 3:58 PM MACHINE TOOL DESIGNER [facility] Comment:REFERENCE RANGE NOT ESTABLISHED GFR ESTIMATE 74(L) >90 ML/MIN/1. 73 M2 07/22/2024 3:58 PM MACHINE TOOL DESIGNER [facility] GFR NOTES GFR REFERENCE S: 07/22/2024 3:58 PM MACHINE TOOL DESIGNER [facility] Comment: THE ESTIMATED GFR IS CALCULATED USING THE 2020 CKD-EPI EQUATION. THE FOLLOWING CATEGORIES FOR GRADING RENAL FUNCTION ARE RECOMMENDED BY THE INTERNATIONAL SOCIETY OF NEPHROLOGY (KDIGO 2012 CLINICAL PRACTICE GUIDELINE). G1,NORMAL OR HIGH: >89 ml/min/1.73 m2 G2,MILDLY DECREASED: 60-89 ml/min/1.73 m2 G3A,MILDLY TO MODERATELY DECREASED: 45-59 ml/min/1.73 m2 G3B,MODERATELY TO SEVERELY DECREASED: 30-44 ml/min/1.73 m2 G4,SEVERELY DECREASED: 15-29 ml/min/1.73 m2 G5,KIDNEY FAILURE: <15 ml/min/1.73 m2 07/22/2024 9:46 AM MACHINE TOOL DESIGNER Cassandra Gaona MD LABORATORY Final Result [facility] [address] [place] [address], * (ABNORMAL) CBC W/DIFF AUTOMATED (07/22/2024 9:46 AM MACHINE TOOL DESIGNER) WBC 4.08 4.00 - 10.80 x10'3/uL 07/22/2024 2:33 PM MACHINE TOOL DESIGNER [facility] RBC 4.51 4.50 - 6.10 x10'6/uL 07/22/2024 2:33 PM [facility] HGB 13.9 13.0 - 18.0 G/DL 07/22/2024 2:33 PM [facility] HCT 41.8 37.0 - 52.0 % 07/22/2024 2:33 PM [facility] MCV 92.7 78.0 - 100.0 FL 07/22/2024 2:33 PM [facility] MCH 30.8 27.0 - 31.0 PG 07/22/2024 2:33 PM [facility] MCHC 33.3 33.0 - 36.0 G/DL 07/22/2024 2:33 PM [facility] RDW 13.7 11.5 - 14.5 % 07/22/2024 2:33 PM [facility] PLT 272 150 - 350 x10'3/uL 07/22/2024 2:33 PM [facility] MPV 9.7 7.4 - 10.4 FL 07/22/2024 2:33 PM [facility] DIFFERENTIAL TYPE AUTOMATED DIFFERENTIAL 07/22/2024 2:33 PM [facility] NEUTROPHILS % 60.5 % 07/22/2024 2:33 PM [facility] LYMPHOCYTES % 17.9 % 07/22/2024 2:33 PM [facility] MONOCYTES % 13.7 % 07/22/2024 2:33 PM [facility] EOSINOPHILS % 6.9 % 07/22/2024 2:33 PM [facility] BASOPHILS % 0.5 % 07/22/2024 2:33 PM [facility] IMMATURE GRANS % 0.5 % 07/22/2024 2:33 PM [facility] ABS. NEUTROPHILS 2.47 1.60 - 8.30 x10'3/uL 07/22/2024 2:33 PM MACHINE TOOL DESIGNER [facility] ABS. LYMPHOCYTES 0.73(L) 0.80 - 4.70 x10'3/uL 07/22/2024 2:33 PM MACHINE TOOL DESIGNER [facility] ABS. MONOCYTES 0.56 0.00 - 1.50 x10'3/uL 07/22/2024 2:33 PM MACHINE TOOL DESIGNER [facility] ABS. EOSINOPHILS 0.28 0.00 - 0.40 x10'3/uL 07/22/2024 2:33 PM MACHINE TOOL DESIGNER [facility] ABS. BASOPHILS 0.02 0.00 - 0.20 x10'3/uL 07/22/2024 2:33 PM MACHINE TOOL DESIGNER [facility] ABS. IMMATURE GRANULOCYTES 0.02 0.00 - 0.03 x10'3/uL 07/22/2024 2:33 PM MACHINE TOOL DESIGNER [facility] 07/22/2024 9:46 AM MACHINE TOOL DESIGNER us Cassandra Gaona MD LABORATORY Final Result [facility] [address] [place] [address], * US AORTA (10/09/2023 11:53 AM CDT) Anatomical Region Laterality Modality Abdomen Ultrasound 10/10/2023 5:51 AM CDT Impressions 10/10/2023 5:52 AM CDT IMPRESSION: 1. No evidence of abdominal aortic aneurysm Referred By: CASSANDRA GAONA Interpreted By: Te Pryor MD, 10/10/2023 5:51 AM Narrative 10/10/2023 5:52 AM CDT EXAMINATION: Abdominal Aortic Ultrasound. EXAM DATE/TIME: 10/09/2023 11:05 AM REASON FOR EXAM: screen AAA History of smoking. COMPARISON: None TECHNIQUE: Transabdominal ultrasound evaluation of the aorta was performed for analysis of grayscale and color Doppler imaging characteristics. FINDINGS:. Proximal aorta measures 29 x 29 mm. The mid aorta measures 18 x 21 mm. The distal aorta measures 20 x 27 mm. Right iliac artery measures 14 x 10 mm. Left iliac artery measures 12 x 10 mm. Atherosclerotic plaque seen throughout the aorta with smooth ectatic dilatation distally. No aneurysm identified. No severe stenosis. Procedure Note Te Pryor MD - 10/10/2023 EXAMINATION: Abdominal Aortic Ultrasound. EXAM DATE/TIME: 10/09/2023 11:05 AM REASON FOR EXAM: screen AAA History of smoking. COMPARISON: None TECHNIQUE: Transabdominal ultrasound evaluation of the aorta was performedfor analysis of grayscale and color Doppler imaging characteristics. FINDINGS:. Proximal aorta measures 29 x 29 mm. The mid aorta [id number] x 21 mm. The distal aorta measures 20 x 27 mm. Right iliac arterymeasures 14 x 10 mm. Left iliac artery measures 12 x 10 mm.Atherosclerotic plaque seen throughout the aorta with smooth ectaticdilatation distally. No aneurysm identified. No severe stenosis. IMPRESSION: 1. No evidence of abdominal aortic aneurysm Referred By: CASSANDRA GAONA Interpreted By: Te Pryor MD, 10/10/2023 5:51 AM Cassandra Gaona MD ULTRASOUND Final Result * COLOGUARD (EXACT SCIENCE) (09/04/2023 9:30 AM CDT) COLOGUARD RESULT Negative Negative [employer] (CLIA #:[id number]) Comment: NEGATIVE TEST RESULT. A negative Cologuard result indicates a low likelihood that a colorectal cancer (CRC) or advanced adenoma (adenomatous polyps with more advanced pre-malignant features) is present. The chance that a person with a negative Cologuard test has a colorectal cancer is less than 1 in 1500 (negative predictive value >99.9%) or has an advanced adenoma is less than 5.3% (negative predictive value 94.7%). These data are based on a prospective cross-sectional study of 10,000 individuals at average risk for colorectal cancer who were screened with both Cologuard and colonoscopy. (Josh Kelley. et al, N Engl J Med 2014;370(14):6744-9810) The normal value (reference range) for this assay is negative. COLOGUARD RE-SCREENING RECOMMENDATION: Periodic colorectal cancer screening is an important part of preventive healthcare for asymptomatic individuals at average risk for colorectal cancer. Following a negative Cologuard result, the [place] Cancer Society and U.S. Multi-Society Task Force screening guidelines recommend a Cologuard re-screening interval of 3 years. References: [place] [employer] Guideline for Colorectal Cancer Screening: https://www.cancer.org/cancer/tporq-gimcgn-zhqyez/cxsdxkqbg-yfqemtphe-wkqbilf/ac s-rec ommendations.html.; Randall DK, Liliana PRICE, Cynthia MacK, Colorectal Cancer Screening: Recommendations for Physicians and Patients from the U.S. Multi-Society Task Force on Colorectal Cancer Screening , Am J Gastroenterology 2017; 112:6905-2623. TEST DESCRIPTION: Composite algorithmic analysis of stool DNA-biomarkers with hemoglobin immunoassay. Quantitative values of individual biomarkers are not reportable and are not associated with individual biomarker result reference ranges. Cologuard is intended for colorectal cancer screening of adults of either sex, 45 years or older, who are at average-risk for colorectal cancer (CRC). Cologuard has been approved for use by the U.S. FDA. The performance of Cologuard was established in a cross sectional study of average-risk adults aged 50-84. Cologuard performance in patients ages 45 to 49 years was estimated by sub-group analysis of near-age groups. Colonoscopies performed for a positive result may find as the most clinically significant lesion: colorectal cancer [4.0%], advanced adenoma (including sessile serrated polyps greater than or equal to 1cm diameter) [20%] or non- advanced adenoma [31%]; or no colorectal neoplasia [45%]. These estimates are derived from a prospective cross-sectional screening study of 10,000 individuals at average risk for colorectal cancer who were screened with both Cologuard and colonoscopy. (Josh Samuel et al, N Engl J Med 2014;370(14):5749-1463.) Cologuard may produce a false negative or false positive result (no colorectal cancer or precancerous polyp present at colonoscopy follow up). A negative Cologuard test result does not guarantee the absence of CRC or advanced adenoma (pre-cancer). The current Cologuard screening interval is every 3 years. ([place] Cancer Society and U.S. Multi-Society Task Force). Cologuard performance data in a 10,000 patient pivotal study using colonoscopy as the reference method can be accessed at the following location: www.[employer]/results. Additional description of the Cologuard test process, warnings and precautions can be found at www.cologuard.com. STOOL STOOL SPECIMEN / Unknown 09/04/2023 9:30 AM CDT 09/06/2023 9:58 AM CDT us Cassandra Gaona MD BODY FLUIDS AND STOOLS ORDERABLE S Final Result [facility]) [address] [place] [address], 5 CUPS and some sugar (CLIA #:[id number]) [address] [place] [address] * HEPATITIS C ANTIBODY (08/28/2023 8:58 AM CDT) HEPATITIS C AB NON-REACTI VE NON-REACT PAOLO 08/28/2023 6:15 PM CDT [facility] Comment: ANTIBODIES TO HCV NOT DETECTED. DOES NOT EXCLUDE THE POSSIBILITY OF EXPOSURE TO HCV. 08/28/2023 8:58 AM CDT Cassandra Gaona MD LABORATORY Final Result [facility] [address] [place] [address], [id number] from Last 3 Months or Most Recently Relevant to Health Maintenance Insurance HUMANA HUMANA Advance Directives * Full Code (Latest Code Status on File) Date Activated Date Inactivated Comments 12/20/2023 11:12 AM 12/20/2023 11:24 PM Care Teams Transmission And Coordination Engineer Relationship Specialty Start Date End Date Cassandra Gaona MD [address] [address] PCP - General INTERNAL MEDICINE 07/15/23
--- OUTSIDE RECORDS SUMMARY | 2024-08-28 08:02 | XMS_ITS | Clinical Summary ---
Author Organization [facility] Address [address] [place] [address] Phone Care Team Providers Care Trestle Builder Name Role Phone Rick Melissa MD Primary Care Provider [phone] Allergies Active Allergy Reactions Criticality Noted Date Comments Mercury (Bulk) Hives High 03/23/2009 Mercury (Elemental) Swelling Low 03/22/2009 Medications aspirin (CARISSA) 81 mg Oral Tab Take 81 mg by mouth daily. Active therapeutic multivitamin w/minerals (THERA-M) 9-0.4 mg Oral Tab Take 1 Tab by mouth daily. Active RABEPRAZOLE SODIUM (ACIPHEX ORAL) Take by mouth. Active FOLIC ACID ORAL Take by mouth. Active CALCIUM CARBONATE/VITAMIN D3 (CALCIUM + D ORAL) Take by mouth. Active OSCIMIN SL 0.125 mg Tablet, Sublingual DISSOLVE 1 TABLET UNDER THE TONGUE FOUR TIMES A DAY NEEDED FOR SPASM. 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 on file Not on file Not on file Last Filed Vital Signs Vital Sign Reading Time Taken Comments Blood Pressure 117/58 05/11/2013 10:36 AM DISTRICT SUPERVISOR Pulse 47 05/11/2013 10:36 AM DISTRICT SUPERVISOR Temperature 36.7 C (98.1 F) 05/11/2013 10:24 AM DISTRICT SUPERVISOR Respiratory Rate 18 05/11/2013 10:36 AM DISTRICT SUPERVISOR Oxygen Saturation 97% 05/11/2013 10:36 AM DISTRICT SUPERVISOR Inhaled Oxygen Concentration - - Weight 77.1 kg (170 lb) 05/11/2013 9:38 AM DISTRICT SUPERVISOR Height 175.3 cm (5' 9 ) 05/11/2013 9:38 AM DISTRICT SUPERVISOR Body Mass Index 25.1 05/11/2013 9:38 AM DISTRICT SUPERVISOR Plan of Treatment Health Maintenance Due Date Last Done Comments DTAP/TDAP/TD VACCINES (1 - Tdap) 11/10/1967 FIT-DNA Q 3 years 1993 FIT/FOBT Q 1 year 1993 Flex Sig/CT Colonography Q 5 years 1993 PNEUMOCOCCAL VACCINE 50+ YEA RS (1 of 1 - PCV) 1998 ZOSTER VACCINE (1 of 2) 1998 COLORECTAL SCREENING 05/11/2023 05/11/2013, 05/11/20 13 Colorectal Cancer Screening 05/11/2023 RSV VACCINE (60+ or ) (1 - 1-dose 75+ series) 11/10/2023 INFLUENZA VACCINE (#1) 2024 02/15/2023 Insurance BCBS BLUE ACCESS/TRUE BLUE PPO Advance Directives For more information, please contact: [phone] * Full Code (Latest Code Status on File) Date Activated Date Inactivated Comments 05/11/2013 9:35 AM 05/11/2013 1:03 PM * Full Code Date Activated Date Inactivated Comments 03/23/2009 8:47 AM 03/24/2009 2:01 AM Care Teams Trestle Builder Relationship Specialty Start Date End Date Rick Melissa MD [address] [address] PCP - General Interventional Cardiology 04/14/13
--- OUTSIDE RECORDS SUMMARY | 2024-08-28 08:02 | XMS_ITS | Encounter Summary ---
Author Organization [facility] Address [address] [facility] [place] [address] Care Team Providers Care Public Health Aides Teacher Name Role Phone Rick Jarquin MD Unavailable [phone] Rick Melissa MD Primary Care Provider [phone] Dotty Michaud MD Unavailable [phone] Encounter Details Date Type Department Care Team (Late st Contact Info) Description 11/08/2015 Therapy Visit EXTERNAL NON-[facility] DEPT Unknown, Provider Social History Tobacco Use Types Packs/Day [...] on file documented as of this encounter Visit Diagnoses Not on filedocumented in this encounter Care Teams Public Health Aides Teacher Relationship Specialty Start Date End Date Rick Melissa MD [address] [place] [address] [address] [place] [address] PCP - General Cardiovascular Disease 04/07/15 [place] [address] [place] [address] Orthopedic Surgery 04/07/15 [place] [address] [place] [address] Orthopedic Surgery 05/18/15 documented as of this encounter
--- OUTSIDE RECORDS SUMMARY | 2024-08-28 08:02 | XMS_ITS | Clinical Summary ---
Author Organization [facility] [employer] Address [address] [place] [address] Care Team Providers Care Senior Service Aide Name Role Phone Rick Jarquin MD Unavailable [phone] Rick Melissa MD Primary Care Provider [phone] Dotty Michaud MD Unavailable [phone] Source Comments [facility],non-owned Affiliates and Associated Physician Practices is amultiple site organization consisting of ambulatory clinics and hospital sitesin [place], [place], [place] and [place]. This disclosure is being madepursuant to the Care Everywhere program and may not contain all information available regarding this patient. Last updated 18.[facility] [employer] Allergies Active Allergy Reactions Criticality Noted Date Comments Mercury Swelling 06/23/2007 Rashes and swelling Medications * Be aware that medications may not be up to date on this document. Alwaysverify current medications with the patient. Medication Sig Dispensed Refills Start Date End Date Status RABEprazole EC (ACIPHEX) 20 MG tabletIndications:Kn ee pain, left,AVN (avascular necrosis of bone) ([facility]),Primary osteoarthritis of left knee Take 20 mg [...] Mass Index 23.78 03/01/2016 7:14 AM CDT Plan of Treatment Health Maintenance Due Date Last Done Comments COLOGUARD (AGES 45-75) - COL ON CA SCREENING 1948 COLON MONITORING 1948 COLONOSCOPY - COLON CA SCREENING 1948 CT COLONOGRAPHY - COLON CA SCREENING 1948 Colorectal Cancer Screening 1948 FIT - COLON CA SCREENING 1948 FLEX SIG - COLON CA SCREENING 1948 HEPATITIS C SCREENING 11/05/1966 DTAP/TDAP/TD VACCINES (1 - Tdap) 11/10/1967 PNEUMOCOCCAL VACCINE 50+ (1 of 1 - PCV) 1998 ZOSTER VACCINE (1 of 2) 1998 Respiratory Syncytial Virus (RSV) Vaccine Pt: or over 60 yrs (1 - 1-dose 75+ series) 11/10/2023 COVID-19 VACCINE ( - 2023-2 5 season) 2024 INFLUENZA VACCINE (#1) 2024 03/02/2016 DEPRESSION SCREENING 06/17/2024 HEPATITIS B VACCINE Aged Out No longe r eligible based on patient's age to complete this topic HIB VACCINE Aged Out No longer eligi ble based on patient's age to complete this topic HPV VACCINE Aged Out No longer eligi ble based on patient's age to complete this topic MENINGOCOCCAL (Group B) VACC INE SHARED DECISION-MAKING Aged Out No longer eligibl e based on patient's age to complete this topic MENINGOCOCCAL GROUPS A/C/Y/W VACCINE Aged Out No longer eligible b ased on patient's age to complete this topic Medical Devices Implanted Type Area Manager Pricing Device Identifier Shelf Expiration Date Model / Serial / Lot Mayank Bone [employer]inte Hv Implanted:Qty: 1 on 03/01/2016 by Rick Jarquin MD at [facility] Left: Knee [employer] 05/16/2017 [id number] / / [id number] Frederic Philip [employer] Polyeth Sm 31 X 8mm Implanted:Qty: 1 on 03/01/2016 by Rick Jarquin MD at [facility] Left: Knee [employer] 12/21/2020 [id number] / / [id number] Kn Ins Vangurd Fem Cocr Intlok L 67.5mm Implanted:Qty: 1 on 03/01/2016 by Rick Jarquin MD at [facility] Left: Knee [employer] 11/13/2025 [id number] / / [id number] Ty Tibial I Beam Fix Bar 79mm Implanted:Qty: 1 on 03/01/2016 by Rick Jarquin MD at [facility] Left: Knee [employer] 12/05/2025 [id number] / / [id number] Implt Tibial Bear Ant Stab 12mm X 79mm Implanted:Qty: 1 on 03/01/2016 by Rick Jarquin MD at [facility] Left: Knee [employer] 11/10/2020 [id number] / / [id number] Advance Directives * Full Code (Latest Code Status on File) Date Activated Date Inactivated Comments 03/01/2016 12:35 PM 03/03/2016 12:35 PM Care Teams Senior Service Aide Relationship Specialty Start Date End Date Rick Melissa MD [address] [place] [address] [address] [id number] PCP - General Cardiovascular Disease 04/07/15 [place] [address] [address] Orthopedic Surgery 04/07/15 [place] [address] [place] [id number] Orthopedic Surgery 05/18/15
--- OUTSIDE RECORDS SUMMARY | 2024-08-28 08:02 | XMS_ITS | Encounter Summary ---
Author Organization [facility] Address [address] [place] [address] Care Team Providers Care Sales Estimator Name Role Phone Cassandra Gaona MD Primary Care Provider [phone] Ban Nguyen RN Unavailable [phone] Encounter Details Date Type Department Care Team (Late Contact Info) Description 10/22/2023 SFOXt Message Enc [facility] Multispecialty Care - [address] [address] [address] [place], [place] [phone] [place] [address] [place] [address] [address] [place] [address] blood pressure Social History Tobacco Use Types Packs/Day Years Used Date Smoking Tobacco: Former Cigarettes 1 15 0 06/17/1975 - 06/17/1990 Smokeless Tobacco: Former Quit: 02/23/1991 Comments:Counseled by Dr. Samanta hernández. Alcohol Use Standard Drinks/Week Comments Not Currently 0 (1 standard drink = 0.6 oz pur e alcohol) no alcohol since 2007 PHQ-2 Answer Date Recorded Patient Health Questionnaire-2 Score 0 08/28/2023 Sex and Gender Information Value Date Recorded Sex Assigned at Male 07/22/2024 9:04 AM CNC OPERATOR MACHINIST Legal Sex Male 1:11 PM CNC OPERATOR MACHINIST Gender Identity Male 07/22/2024 9:04 AM CNC OPERATOR MACHINIST Sexual Orientation Straight 07/22/2024 9: 04 AM CNC OPERATOR MACHINIST documented as of this encounter Plan of Treatment Upcoming Encounters Date Type Department Care Team (Late Contact Info) Description 09/07/2024 9:20 AM CDT Appointment [facility] Interventional [facility] Management Center [address] [place] [address] [id number] Papo Greco, OCCUPATIONAL THERAPY AIDE [facility] [place] [address] [place] [phone] (Work) 10/21/2024 10:00 AM CDT Allied Health/Nurse Visit [facility] Multispecialty Care - [address] [address] [address] [place] [address] Cassandra Gaona MD [facility] [address] 11/30/2024 9:30 AM CDT Office Visit [facility] [place] [address] Misha Clements MD [facility] [address] [place] [address] 12/25/2024 10:40 AM CDT [facility] [address] [facility], [address] [place] [address] Khadijah Black NP [address] [facility] [address] [place] [address] documented as of this encounter Visit Diagnoses Not on filedocumented in this encounter Additional Health Concerns Assessment Noted Time PHQ-9 Depression Total Score: 1 08/28/19 24 9:17 AM CDT documented as of this encounter Care Teams Sales Estimator Relationship Specialty Start Date End Date Cassandra Gaona MD [address] [place] [address] [address] [place] [address] PCP - General INTERNAL MEDICINE 07/15/23 Ban Nguyen, RN [address] [place], [place] [phone] Clock And Watch Assembler (Ambulatory) REGISTERED NURSE 12/23/2312/23/23 documented as of this encounter
--- OUTSIDE RECORDS SUMMARY | 2024-08-28 08:02 | XMS_ITS | Patient Health Summary ---
Author Organization [facility] Address [address] [place] [address] Care Team Providers Care Department Specialist Name Role Phone Rick Jarquin MD Unavailable [phone] Rick Melissa MD Primary Care Provider [phone] Dotty Michaud MD Unavailable [phone] Note from [facility],non-owned Affiliates and Associated Physician Practices is amultiple site organization consisting of ambulatory clinics and hospital sitesin [place], [place], [place] and [place]. This disclosure is being madepursuant to the Care Everywhere program and may not contain all information available regarding this patient. Last updated 18.[facility] Allergies * Mercury(Swelling) Medications * Be aware that medications may not be up to date on this document. Alwaysverify current medications with the patient. * RABEprazole EC (ACIPHEX) 20 MG tablet Take 20 mg by mouth every evening * FOLIC ACID PO Take 800 mcg by mouth every evening * B Complex-Folic Acid (SUPER B COMPLEX MAXI PO) Take by mouth every evening * Multiple Vitamins-Minerals (MULTI COMPLETE PO) Take by mouth every evening * sildenafil (VIAGRA) 50 MG tablet Take 50 mg by mouth once daily as needed * traMADol (ULTRAM) 50 MG tablet(Started 04/02/2016) Take 1-2 Tabs by mouth every 6 hours as needed for Pain 1 refill remaining * diclofenac sodium (VOLTAREN) 1 % gel(Started 05/08/2016) Apply 4 g to affected area 4 times daily Apply to affected knee 3 refills remaining * ALPRAZolam (XANAX) 0.5 MG tablet(Started 05/08/2016) Take 1 Tab by mouth at bedtime 1 refill remaining * diclofenac sodium EC (VOLTAREN) 75 MG tablet(Started 06/14/2016) Take 1 Tab by mouth 2 times daily 3 refills remaining * aspirin (ASPIRIN) 81 MG tablet Take 81 mg by mouth once daily * nabumetone (RELAFEN) 750 MG tablet(Started 03/28/2017) Take 1 tablet by mouth 2 times daily 3 refills remaining Active Problems Problem Noted Date Diagnosed Date Iliotibial band syndrome of left side 05/08/2016 Status post left knee replacement 03/22/2016 Primary osteoarthritis of left knee 01/23/2016 Immunizations * INFLUENZA VACCINE, QUADR. (FLUZONE; FLULAVAL; FLUARIX; AFLURIA QUADRIVALENT; 6MO+), 0.5 ML (IIV4)(Given 03/02/2016) Social History Tobacco Use Types Packs/Day Years [...] Mass Index 23.78 03/01/2016 7:14 AM CDT Medical Devices Implanted Type Area Electric Meter Repairer Helper Device Identifier Shelf Expiration Date Model / Serial / Lot Mayank Bone [place] Hv Implanted:Qty: 1 on 03/01/2016 by Rick Jarquin MD at [facility] Left: Knee [employer] 05/16/2017 [id number] / / [id number] Butn Pat Arcom Wire Polyeth Sm 31 X 8mm Implanted:Qty: 1 on 03/01/2016 by Rick Jarquin MD at [facility] Left: Knee [employer] 12/21/2020 [id number] / / [id number] Kn Ins [place]urd Fem Cocr Intlok L 67.5mm Implanted:Qty: 1 on 03/01/2016 by Rick Jarquin MD at [facility] Left: Knee [employer] 11/13/2025 [id number] / / [id number] Ty Tibial I Beam Fix Bar 79mm Implanted:Qty: 1 on 03/01/2016 by Rick Jarquin MD at [facility] Left: Knee [employer] 12/05/2025 [id number] / / [id number] Implt Tibial Bear Ant Stab 12mm X 79mm Implanted:Qty: 1 on 03/01/2016 by Rick Jarquin MD at [facility] Left: Knee [employer] 11/10/2020 [id number] / / [id number] Procedures * ERYTHROCYTE SEDIMENTATION RATE(Performed 03/07/2017) Performed for Status post left knee replacement * C-REACTIVE PROTEIN(Performed 03/07/2017) Performed for Status post left knee replacement * XR KNEE LEFT 3VW(Performed 03/07/2017) Performed for Status post left knee replacement * XR KNEE LEFT 3VW(Performed 04/12/2016) Performed for Primary osteoarthritis of left knee * CARDIAC EKG ORDER(Performed 03/05/2016) * CARDIAC STRESS TEST ORDER(Performed 03/05/2016) * HGB HCT PANEL(Performed 03/03/2016) * HGB HCT PANEL(Performed 03/02/2016) * ARTHROPLASTY TOTAL KNEE(Performed 03/01/2016) * COMPREHENSIVE METABOLIC PANEL(Performed 01/31/2016) Performed for Preop examination * CBC W AUTO DIFFERENTIAL(Performed 01/31/2016) Performed for Preop examination * CULTURE MSSA/MRSA(Performed 01/31/2016) Performed for Preop examination * EKG 12-LEAD(Performed 01/31/2016) Performed for Preop examination * XR KNEE LEFT 3VW(Performed 01/23/2016) Performed for Primary osteoarthritis of left knee * MRI SHOULDER LEFT WO CONTRAST(Performed 10/04/2015) Performed for Chronic left shoulder pain * XR SHOULDER LEFT 2VW OR MORE(Performed 05/04/2015) Performed for Left shoulder pain * MRI KNEE LEFT WO CONTRAST(Performed 04/13/2015) Performed for Knee pain, left, AVN (avascular necrosis of bone) (HCC), Primary osteoarthritis of left knee * XR KNEE LEFT 3VW(Performed 04/07/2015) Performed for Knee pain, left Results * C-REACTIVE PROTEIN (03/07/2017 12:32 PM CDT) Pathologist [facility] C-Reactive Protein <0.29 <0.30 mg/dL 03/07/2017 1:35 PM CDT [facility] Blood BLOOD SPECIMEN / Unknown Lab Venipuncture / Unknown 03/07/2017 12:32 PM CDT 03/07/2017 1:19 PM CDT Jeff Acharya PA-C LAB - CHEMISTRY ORD ERABLES Performing Organization Address City/[facility] Co de Phone Number [facility] [id number] [place] [address] * ERYTHROCYTE SEDIMENTATION RATE (03/07/2017 12:32 PM CDT) [facility] Erythrocyte Sedimentation Rate Automated 2 0 - 20 MM/HR 03/07/2017 1:27 PM CDT [facility] Blood BLOOD SPECIMEN / Unknown Lab Venipuncture / Unknown 03/07/2017 12:32 PM CDT 03/07/2017 1:19 PM CDT Jeff Acharya PA-C LAB - HEMATOLOGY OR DERABLES Performing Organization Address City/[facility] Co de Phone Number [facility] [id number] [place] [address] * XR KNEE 3 VW LEFT (03/07/2017 11:30 AM CDT) Only the most recent of4 resultswithin the time period is included. Anatomical Region Laterality Modality Lower Extremity Computed Radiogr aphy Narrative 03/07/2017 4:07 PM CDT Flores Marte RT(R) 03/07/2017 4:07 PM See progress notes for results Jeff J Diesfeld PA-C DIAGNOSTIC IMAGING ORDERABLES * CARDIAC EKG ORDER (03/05/2016 9:12 PM CDT) Narrative 03/05/2016 9:12 PM CDT Ordered by an unspecified provider. Scanned Document CARDIAC SERVICES ORD ERABLES * CARDIAC STRESS TEST ORDER (03/05/2016 9:12 PM CDT) Narrative 03/05/2016 9:12 PM CDT Ordered by an unspecified provider. Scanned Document CARDIAC SERVICES ORD ERABLES * (ABNORMAL) HGB HCT PANEL (03/03/2016 4:44 AM CDT) Only the most recent of2 resultswithin the time period is included. [facility] Hemoglobin 11.5(L) 12.0 - 17.6 gm/dL 03/03/2016 5:52 AM CDT [facility] Hematocrit 32.1(L) 35.2 - 51.7 % 03/03/2016 5:52 AM CDT [facility] Blood BLOOD SPECIMEN / Unknown 03/03/2016 4:44 AM CDT 03/03/2016 5:40 AM CDT Rick Jarquin MD LAB - HEMATOLOGY ORD ERABLES Performing Organization Address City/[facility]/ZIP Co de Phone Number [facility] [address] [place] [address] * CULTURE MSSA/MRSA (01/31/2016 9:02 AM CDT) [facility] Culture Negative for MRSA/MSSA [place] 02/02/2016 7:08 AM CDT [facility]CRO[facility] Microbiology SPECIMEN FROM NASAL FOSSAE / Unknown 01/31/2016 9:02 AM CDT 01/31/2016 9:40 AM CDT Rick Jarquin MD LAB - MICROBIOLOGY O RDERABLES [facility] [address] [place] [address], [facility] [phone] * (ABNORMAL) CBC W AUTO DIFFERENTIAL (01/31/2016 9:02 AM CDT) [facility] WBC 4.0(L) 4.4 - 10.7 x10E9/L 01/31/2016 9:46 AM CDT [facility] WBC Corrected x10E9/L 01/31/2016 9:46 AM CDT [facility] RBC 4.76 3.80 - 5.40 x10E12/L 01/31/2016 9:46 AM CDT [facility] Hemoglobin 14.5 12.0 - 17.6 gm/dL 01/31/2016 9:46 AM CDT [facility] Hematocrit 42.8 35.2 - 51.7 % 01/31/2016 9:46 AM CDT [facility] MCV 89.9 80.7 - 98.3 fl 01/31/2016 9:46 AM CDT [facility] MCH 30.5 26.7 - 34.0 pg 01/31/2016 9:46 AM CDT [facility] MCHC 33.9 30.8 - 35.9 gm/dL 01/31/2016 9:46 AM CDT [facility] Platelet Count 211 153 - 416 x10E9/L 01/31/2016 9:46 AM CDT [facility] RDW-CV 13.0 12.1 - 14.9 % 01/31/2016 9:46 AM CDT [facility] MPV 9.3(L) 9.4 - 12.9 fl 01/31/2016 9:46 AM CDT [facility] Neutrophils % 48.9 44.0 - 73.0 % 01/31/2016 9:46 AM CDT [facility] Lymphocytes % 31.7 20.0 - 43.0 % 01/31/2016 9:46 AM CDT [facility] Monocytes % 12.6 5.0 - 13.0 % 01/31/2016 9:46 AM CDT [facility] Eosinophils % 4.8 0.0 - 6.0 % 01/31/2016 9:46 AM CDT [facility] Basophils % 1.5 0.0 - 2.0 % 01/31/2016 9:46 AM CDT [facility] Immature Granulocytes 0.5 0 - 1 % 01/31/2016 9:46 AM CDT [facility] Neutrophil Absolute 1.94(L) 2.01 - 7.14 x10E9/L 01/31/2016 9:46 AM CDT [facility] Lymphocytes Absolute 1.26 1.07 - 3.94 x10E9/L 01/31/2016 9:46 AM CDT [facility] Monocytes Absolute 0.50 0.26 - 1.07 x10E9/L 01/31/2016 9:46 AM CDT [facility] Eosinophils Absolute 0.19 0 - 0.47 x10E9/L 01/31/2016 9:46 AM CDT [facility] Basophils Absolute 0.06 0 - 0.08 x10E9/L 01/31/2016 9:46 AM CDT [facility] Immature Granulocytes Absolute 0.02 0.00 - 0.06 x10E9/L 01/31/2016 9:46 AM CDT [facility] nRBC Auto 0 /100 WBC 01/31/2016 9:46 AM CDT [facility] Blood BLOOD SPECIMEN / Unknown 01/31/2016 9:02 AM CDT 01/31/2016 9:40 AM CDT Rick Jarquin MD LAB - HEMATOLOGY ORD ERABLES [facility] [address] [place] [address] * (ABNORMAL) COMPREHENSIVE METABOLIC PANEL (01/31/2016 9:02 AM CDT) Glucose 89 74 - 106 mg/dL 01/31/2016 10:01 [facility] Sodium 142 136 - 145 mmol/L 01/31/2016 10:01 AM CDT [facility] Potassium 4.2 3.5 - 5.1 mmol/L 01/31/2016 10:01 AM CDT [facility] Chloride 105 98 - 107 mmol/L 01/31/2016 10:01 AM CDT [facility] CO2 33(H) 22 - 31 mmol/L 01/31/2016 10:01 AM CDT [facility] Calcium 9.0 8.5 - 10.1 mg/dL 01/31/2016 10:01 AM CDT [facility] Anion Gap 4(L) 5 - 20 mmol/L 01/31/2016 10:01 AM CDT [facility] BUN 22(H) 7 - 21 mg/dL 01/31/2016 10:01 AM CDT [facility] Creatinine 0.78 0.50 - 1.30 mg/dL 01/31/2016 10:01 AM CDT [facility] Alkaline Phosphatase 56 38 - 126 U/L 01/31/2016 10:01 AM CDT [facility] ALT 14 13 - 61 U/L 01/31/2016 10:01 AM CDT [facility] Comment:See reference range update AST 15 5 - 40 U/L 01/31/2016 10:01 AM CDT [facility] Protein Total 7.0 6.4 - 8.2 gm/dL 01/31/2016 10:01 AM CDT [facility] Albumin 3.6 3.4 - 5.0 gm/dL 01/31/2016 10:01 AM CDT [facility] Bilirubin Total 0.4 0.2 - 1.0 mg/dL 01/31/2016 10:01 AM CDT [facility] eGFR by MDRD >60 >60 mL/min/1.7 3m2 01/31/2016 10:01 AM CDT [facility] eGFR by MDRD >60 >60 mL/min/1.7 3m2 01/31/2016 10:01 AM CDT [facility] Blood BLOOD SPECIMEN / Unknown 01/31/2016 9:02 AM CDT 01/31/2016 9:40 AM CDT Rick Jarquin MD LAB - CHEMISTRY ANDRIY AVILES [facility] Organization Address City/State/ZIP Co de Phone Number [facility] [address] [place] [address] * EKG 12-LEAD (01/31/2016 8:41 AM CDT) Ventricular Rate 47 BPM [facility] Atrial Rate 47 BPM [facility] P-R Interval 146 ms [facility] QRS Duration ms 100 ms [facility] Q-T Interval ms 490 ms [facility] QTC Calculation (Bezet) 433 ms [facility] Calculated P [place] 0 degrees [facility] Calculated R [place] -37 degrees [facility] Calculated T [place] -36 degrees [facility] Interpretation EKG Marked sinus bradycardia Left axis deviation Minimal voltage criteria for LVH, may be normal variant ST & T wave abnormality, consider lateral ischemia Abnormal ECG No previous ECGs available Confirmed by MD BRENDA, DANIELLE ([id number]) on 01/31/2016 12:57:04 PM [facility] 01/31/2016 8:41 AM CDT 01/31/2016 12:57 PM CDT Rick Jarquin MD ECG ORDERABLES [facility] * MRI SHOULDER WO CONT LEFT (10/04/2015 12:32 PM CDT) Anatomical Region Laterality Modality Upper Extremity Magnetic Resonan ce 10/04/2015 2:57 PM CDT Impressions 10/04/2015 4:08 PM CDT SUPERIOR LABRAL TEAR. MODERATE ATROPHY OF THE SUPRASPINATUS TENDON OCCURRING IN THE CRITICAL ZONE. TYPE II ACROMION. Edited by Jodi Nation on 10/04/2015 3:32 PM Narrative 10/04/2015 4:08 PM CDT MRI LEFT SHOULDER WITHOUT CONTRAST CLINICAL INDICATION: Severe chronic left shoulder pain and limited range of motion. COMPARISON: Left shoulder x-ray 05/04/2015 TECHNIQUE: Multiplanar, multisequence MR imaging of the left shoulder was performed without contrast. FINDINGS: There is abnormal linear fluid signal present within the superior labrum extending from the 10:00 to 2:00 position. This is consistent with a superior labral tear. There is no evidence of paralabral ganglion cyst formation. The biceps tendon is within normal limits. There is moderate atrophy of the mid and posterior fibers of the supraspinatus tendon occurring in the critical zone. No acute rotator cuff tendon tears are identified. There is no fluid within the subacromial/subdeltoid bursa. There is no evidence of muscle edema or muscle atrophy. There is a type II acromion. The glenohumeral and acromioclavicular joints are congruent. The articular cartilage of the glenohumeral joint is intact throughout. There is no joint effusion. Procedure Note Mac Jones MD - 10/04/2015 MRI LEFT SHOULDER WITHOUT CONTRAST CLINICAL INDICATION: Severe chronic left shoulder pain and limited range of motion. COMPARISON: Left shoulder x-ray 05/04/2015 TECHNIQUE: Multiplanar, multisequence MR imaging of the left shoulder was performed without contrast. FINDINGS: There is abnormal linear fluid signal present within the superior labrum extending from the 10:00 to 2:00 position. This is consistent with a superior labral tear. There is no evidence of paralabral ganglion cyst formation. The biceps tendon is within normal limits. There is moderate atrophy of the mid and posterior fibers of the supraspinatus tendon occurring in the critical zone. No acute rotator cuff tendon tears are identified. There is no fluid within the subacromial/subdeltoid bursa. There is no evidence of muscle edema or muscle atrophy. There is a type II acromion. The glenohumeral and acromioclavicular joints are congruent. The articular cartilage of the glenohumeral joint is intact throughout. There is no joint effusion. IMPRESSION SUPERIOR LABRAL TEAR. MODERATE ATROPHY OF THE SUPRASPINATUS TENDON OCCURRING IN THE CRITICAL ZONE. TYPE II ACROMION. Edited by Jodi Nation on 10/04/2015 3:32 PM Dotty Michaud MD MR ORDERABLES * XR SHOULDER 2+ VW LEFT (05/04/2015 2:47 PM HOTEL MAINTENANCE TECHNICIAN) Anatomical Region Laterality Modality Upper Extremity Radiographic Yessenia ging Narrative 05/04/2015 3:42 PM HOTEL MAINTENANCE TECHNICIAN Rose Gruber 05/04/2015 3:42 PM See progress notes for results Dotty Michaud MD DIAGNOSTIC IMAGING ORDERABLES * MRI KNEE WO CONT LEFT (04/13/2015 6:42 PM CDT) Anatomical Region Laterality Modality Lower Extremity Magnetic Resonan ce 04/14/2015 11:5 2 AM CDT Impressions 04/14/2015 1:11 PM CDT CHRONIC DEGRADATION OF THE MEDIAL AND LATERAL MENISCI WITH LINEAR ABNORMAL SIGNAL EXTENDING THROUGH THE POSTERIOR HORN OF THE MEDIAL MENISCUS. THIS CAN INDICATE A RECURRENT MENISCAL TEAR OR MENISCAL SCARRING RELATING TO PRIOR MENISCAL REPAIR. GIVEN THE IMAGING CHARACTERISTICS, I WOULD FAVOR A RECURRENT TEAR. JOINT EFFUSION. FULL-THICKNESS OSTEOCHONDRAL LESION INVOLVING THE WEIGHTBEARING SURFACE OF THE MEDIAL FEMORAL CONDYLE WITH ASSOCIATED REACTIVE EDEMA AND GENERALIZED CHONDROMALACIA IN THE MEDIAL COMPARTMENT. Edited by Jodi Nation on 04/14/2015 12:26 PM Narrative 04/14/2015 1:11 PM CDT EXAM: MRI KNEE WITHOUT CONTRAST, LEFT INDICATION: Left knee pain and swelling TECHNIQUE: Multiplanar, multisequence magnetic resonance imaging of the knee performed without contrast FINDINGS: There is chronic degradation of both the medial and lateral menisci. There is linear irregular signal extending in oblique fashion through the posterior horn of the medial meniscus, to the inferior articular surface. This patient does have a history of prior meniscal repair and it is possible that this represents meniscal scar however, given the fact that the signal extends through the inferior articular surface of the meniscus, I would favor a recurrent tear. An acute lateral meniscal tear is not identified. There is somewhat diffuse chondromalacia affecting the articular cartilages of the medial compartment with an associated full-thickness osteochondral defect measuring approximately 8 mm in mediolateral dimension and 9 mm in anteroposterior dimension involving the weightbearing surface of the medial femoral condyle. There is subjacent reactive edema in the medial femoral condyle, itself. There is no displaced fracture, dislocation or marrow infiltrative process. The patient is developing early subchondral sclerosis of the weightbearing surface of the medial femoral condyle. A joint effusion is noted. Anterior and posterior cruciate ligaments, medial and lateral collateral ligaments, and quadriceps/patellar tendons are intact and unremarkable. Procedure Note Wander Olvera MD - 04/14/2015 EXAM: MRI KNEE WITHOUT CONTRAST, LEFT INDICATION: Left knee pain and swelling TECHNIQUE: Multiplanar, multisequence magnetic resonance imaging of the knee performed without contrast FINDINGS: There is chronic degradation of both the medial and lateral menisci. There is linear irregular signal extending in oblique fashion through the posterior horn of the medial meniscus, to the inferior articular surface. This patient does have a history of prior meniscal repair and it is possible that this represents meniscal scar however, given the fact that the signal extends through the inferior articular surface of the meniscus, I would favor a recurrent tear. An acute lateral meniscal tear is not identified. There is somewhat diffuse chondromalacia affecting the articular cartilages of the medial compartment with an associated full-thickness osteochondral defect measuring approximately 8 mm in mediolateral dimension and 9 mm in anteroposterior dimension involving the weightbearing surface of the medial femoral condyle. There is subjacent reactive edema in the medial femoral condyle, itself. There is no displaced fracture, dislocation or marrow infiltrative process. The patient is developing early subchondral sclerosis of the weightbearing surface of the medial femoral condyle. A joint effusion is noted. Anterior and posterior cruciate ligaments, medial and lateral collateral ligaments, and quadriceps/patellar tendons are intact and unremarkable. IMPRESSION CHRONIC DEGRADATION OF THE MEDIAL AND LATERAL MENISCI WITH LINEAR ABNORMAL SIGNAL EXTENDING THROUGH THE POSTERIOR HORN OF THE MEDIAL MENISCUS. THIS CAN INDICATE A RECURRENT MENISCAL TEAR OR MENISCAL SCARRING RELATING TO PRIOR MENISCAL REPAIR. GIVEN THE IMAGING CHARACTERISTICS, I WOULD FAVOR A RECURRENT TEAR. JOINT EFFUSION. FULL-THICKNESS OSTEOCHONDRAL LESION INVOLVING THE WEIGHTBEARING SURFACE OF THE MEDIAL FEMORAL CONDYLE WITH ASSOCIATED REACTIVE EDEMA AND GENERALIZED CHONDROMALACIA IN THE MEDIAL COMPARTMENT. Edited by Jodi Nation on 04/14/2015 12:26 PM Rick Jarquin MD MR ORDERABLES Care Teams Department Specialist Relationship Specialty Start Date End Date Rick Melissa MD [address] [place] [id number] PCP - General Cardiovascular Disease 04/07/15 [place] [id number] [address] Orthopedic Surgery 04/07/15 [place] [id number] [address] [address] Orthopedic Surgery 05/18/15
--- OUTSIDE RECORDS SUMMARY | 2024-08-28 08:02 | XMS_ITS | Encounter Summary ---
Author Organization [facility] Address [address] [place] [address] Care Team Providers Care [employer] Registrar Name Role Phone Rick Jarquin MD Unavailable [phone] Rick Melissa MD Primary Care Provider [phone] Dotty Michaud MD Unavailable [phone] Encounter Details Date Type Department Care Team (Late st Contact Info) Description 07/01/2015 Therapy Visit [facility] Orthopedics [id number] [address] [place] [id number] [address] Social History Tobacco Use Types Packs/Day Years [...] on filedocumented in this encounter Care Teams [employer] Registrar Relationship Specialty Start Date End Date Rick Melissa MD [address] [place] [phone] PCP - General Cardiovascular Disease 04/07/15 [place] [id number] [facility] [address] [place] [address] Orthopedic Surgery 04/07/15 [place] [id number] [address] Orthopedic Surgery 05/18/15 documented as of this encounter
--- OUTSIDE RECORDS SUMMARY | 2024-08-28 08:03 | XMS_ITS | Encounter Summary ---
Author Organization [facility] Address [facility] [place] [address] Care Team Providers Care Wool Puller Name Role Phone Cassandra Gaona MD Primary Care Provider [phone] Ban Nguyen RN Unavailable [phone] Encounter Details Date Type Department Care Team (Latest Contact Info) Description 09/27/2023 [employer] Message Enc [facility] Medical Group Multispecialty Care [address] [place], [place] [id number] Cassandra Gaona MD 1188 [facility] 157 [place] [address] Upcoming Appointment Social History Tobacco Use Types Packs/Day Years [...] Sex Assigned at Male 07/22/2024 9:04 AM SONAR WATCHSTANDER Legal Sex Male 1:11 PM SONAR WATCHSTANDER Gender Identity Male 07/22/2024 9:04 AM SONAR WATCHSTANDER Sexual Orientation Straight 07/22/2024 9: 04 AM SONAR WATCHSTANDER documented as of this encounter Plan of Treatment Upcoming Encounters Date Type Department Care Team (Late st Contact Info) Description 09/07/2024 9:20 AM CDT Appointment [facility] Interventional Pain Management Center [address] [place] [address] [id number] Papo Greco, SHOWER ATTENDANT 3 [facility] Secretary [address] [place] [address] [phone] (Work) 10/21/2024 10:00 AM CDT Allied Health/Nurse Visit [facility] Multispecialty Care - [place] [address] [address] [place] [address] Cassandra Gaona MD [facility] [address] 11/30/2024 9:30 AM CDT Office Visit [facility] [place] [address] Misha Clements MD Three [facility] [address] [place] [address] 12/25/2024 10:40 AM CDT [facility] 3 [facility], [address] [place] [address] Khadijah Black NP 3 [facility] [address] [place] [address] documented as of this encounter Visit Diagnoses Not on filedocumented in this encounter Additional Health Concerns Assessment Noted Time PHQ-9 Depression Total Score: 1 08/28/19 24 9:17 AM CDT documented as of this encounter Care Teams Wool Puller Relationship Specialty Start Date End Date Cassandra Gaona MD [address] [place] [address] 157 [place] [address] PCP - General INTERNAL MEDICINE 07/15/23 Ban Nguyen, RN [address] [place], [place] [address] Equipment Inspector (Ambulatory) REGISTERED NURSE 12/23/2312/23/23 documented as of this encounter
--- OUTSIDE RECORDS SUMMARY | 2024-08-28 08:03 | XMS_ITS | Encounter Summary ---
Author Organization [facility] Address [facility]6 [place] [address] Care Team Providers Care Circular Head Saw Operator Name Role Phone Cassandra Gaona MD Primary Care Provider [phone] Ban Nguyen RN Unavailable [phone] Encounter Details Date Type Department Care Team (Latest Contact Info) Description 09/05/2023 T[employer] Message Enc [facility] Medical Group Multispecialty Care [address] [place], [place] [id number] Cassandra Gaona MD 1188 [facility] 157 [place] [address] Pain Med Confusion Social History Tobacco Use Types Packs/Day Years [...] Sex Assigned at Male 07/22/2024 9:04 AM VARNISHER PLASTICOATER Legal Sex Male 1:11 PM VARNISHER PLASTICOATER Gender Identity Male 07/22/2024 9:04 AM VARNISHER PLASTICOATER Sexual Orientation Straight 07/22/2024 9: 04 AM VARNISHER PLASTICOATER documented as of this encounter Plan of Treatment Upcoming Encounters Date Type Department Care Team (Late st Contact Info) Description 09/07/2024 9:20 AM CDT Appointment [facility] Interventional Pain Management Center [address] [facility] [place] [address] [id number] Papo Greco, ICE DELIVERY DRIVER 3 [facility] [place] [address] [place] [address] [phone] (Work) 10/21/2024 10:00 AM CDT Allied Health/Nurse Visit [facility] Multispecialty Care - [place] [address] [address] [place] [address] Cassandra Gaona MD [facility] [address] 11/30/2024 9:30 AM CDT Office Visit [facility] [place] [address] Misha Clements MD Three [facility] [address] [place] [address] 12/25/2024 10:40 AM CDT [facility] 3 [facility], [address] [place] [address] Khadijah Black NP 3 [facility] [address] [place] [address] documented as of this encounter Visit Diagnoses Not on filedocumented in this encounter Additional Health Concerns Assessment Noted Time PHQ-9 Depression Total Score: 1 08/28/19 24 9:17 AM CDT documented as of this encounter Care Teams Circular Head Saw Operator Relationship Specialty Start Date End Date Cassandra Gaona MD [address] [place] [address] 157 [place] [address] PCP - General INTERNAL MEDICINE 07/15/23 Ban Nguyen, RN [address] [place], [place] [phone] Backing In Machine Tender (Ambulatory) REGISTERED NURSE 12/23/2312/23/23 documented as of this encounter
--- OUTSIDE RECORDS SUMMARY | 2024-08-28 08:03 | XMS_ITS | Encounter Summary ---
Author Organization [facility] Address [facility] [place] [address] Care Team Providers Care Terrazzo Journeyman Name Role Phone Cassandra Gaona MD Primary Care Provider [phone] Encounter Details Date Type Department Care Team (Latest Contact Info) Description 02/25/2024 [employer] Message Enc [facility] Medical Group Multispecialty Care - [place] [address] [place] [address] [address] [place] [address] Cassandra Gaona MD 1188 [facility] 157 [place], [place] [phone] Request New Prescription Social History Tobacco Use Types Packs/Day Years Used Date Smoking Tobacco: Former Cigarettes 1 15 0 06/17/1975 - 06/17/1990 Smokeless Tobacco: Former Quit: 02/23/1991 Comments:Counseled by Dr. Samanta hernández. Alcohol Use Standard Drinks/Week Comments Not Currently 0 (1 standard drink = 0.6 oz pur e alcohol) no alcohol since 2007 [facility] Utilities Answer Date Recorded In the past 12 months has e Big [employer], gas, oil, or water [employer] threatened to shut off services in your [...] any time in the past 12 m [facility], were you homeless or living in a senior care (including now)? No 12/18/2023 Sex and Gender Information Value Date Recorded Sex Assigned at Male 07/22/2024 9:04 AM DRY WALL SPRAYER Legal Sex Male 1:11 PM DRY WALL SPRAYER Gender Identity Male 07/22/2024 9:04 AM DRY WALL SPRAYER Sexual Orientation Straight 07/22/2024 9: 04 AM DRY WALL SPRAYER documented as of this encounter Functional Status * Are you deaf or do you have serious difficulty hearing Answer Date of Assessment Author Status No 12/18/2023 5:43 PM CDT Mika Greco RN Active * Are you blind or [...] Info) Description 09/07/2024 9:20 AM CDT Appointment [facility] Interventional Pain Management [place] [address] [id number] Papo Greco, HOOP DRIVING MACHINE OPERATOR [id number] [place] [address] [phone] (Work) 10/21/2024 10:00 AM CDT Allied Health/Nurse Visit [facility] Medical Group Multispecialty Care - [place] [address] [address] [place] [address] Cassandra Gaona MD [address] [place] [address] 11/30/2024 9:30 AM CDT Office Visit [facility] [address] Misha Clements MD Three [facility]., [address] [place] [address] 12/25/2024 10:40 AM CDT Office Visit [facility] Group Multispecialty Care - [facility] 3 [facility], [address] [place] [address] Khadijah Black NP 3 [facility] [address] [place] [address] documented as of this encounter Visit Diagnoses Not on filedocumented in this encounter Additional Health Concerns Assessment Noted Time PHQ-9 Depression Total Score: 2 01/31/20 24 10:35 AM CDT documented as of this encounter Care Teams Terrazzo Journeyman Relationship Specialty Start Date End Date Cassandra Gaona MD [address] [address] PCP - General INTERNAL MEDICINE 07/15/23 documented as of this encounter
--- OUTSIDE RECORDS SUMMARY | 2024-08-28 08:03 | XMS_ITS | Referral Summary ---
Author Organization [facility] Medical Office Building [address] [place] [address] Care Team Providers Care Flying Ii Instructor Name Role Phone Rick Melissa MD Primary Care Provider [phone] Allergies Active Allergy Reactions Criticality Noted Date Comments Mercury (Elemental) Swelling Medium 02/17/2018 Thimerosal Fatigue,Fever,Muscle pain,Stomach upset Medium 06/17/[address] (ACIPHEX) 20 mg EC tablet Take 20 mg by mouth daily. Active clopidogrel (PLAVIX) 75 mg tablet Take 1 tablet (75 mg total) by mouth daily. 21 tablet 8 Active Additional Information Patient taking differently:75 mg oral Daily,Indications: stopped approximately 2 weeks ago., Reported on 05/14/2018 aspirin 81 mg tablet After taking 325mg of aspirin for 21 days (finish all the pills for 325mg aspirin), take 81mg of aspirin every day. 30 tablet 8 Active multivitamin with minerals tablet Take by mouth. Activ e REPATHA SYRINGE 140 mg/mL syringe 8 Active VOLTAREN 1 % gel 8 Active sildenafiL (VIAGRA) 100 mg tablet Take 1 tablet (100 mg total) by mouth as needed for erectile dysfunction 10 tablet 11 4 Active tamsulosin (FLOMAX) 0.4 mg extended release capsuleIndicati ons:Benign prostatic hyperplasia with weak urinary stream Take 1 capsule (0.4 mg total) by mouth daily 90 capsule 3 4 Active papaverine-phen tolamine-alpros tadil (TRIMIX) solution injectionIndica tions:Erectile Dysfunction Patient to inject 0.3 ml as needed prior to sexual activity 5 mL 3 4 Active Active Problems Problem Noted Date Diagnosed Date Benign prostatic hyperplasia with weak urinary s tream 07/23/2022 Assessment & Plan (07/23/2022 11:03 AM SUPERVISOR STONE): -On tamsulosin 0.4mg. Reports somewhat weak stream but overall happy with voiding pattern. -Denies gross hematuria, dysuria. -PVR low at 5 mL. PLAN: -Continue tamsulosin 0.4mg daily. Erectile dysfunction due to diseases classified elsewhere 07/23/2022 Assessment & Plan (07/23/2022 11:04 AM SUPERVISOR STONE): -Using trimix but not very often as he feels it causes some numbness around side of injection post use. -Viagra does work for him and thinking of using this mainly. PLAN: -Would recommend viagra use if working for him. Do not combine medications and use one or the other. Screening PSA (prostate specific antigen) 2022 Assessment & Plan (07/23/2022 11:04 AM SUPERVISOR STONE): -He has physical with his PCP next week and due for blood work. He will ask about checking PSA. PLAN: -Will get PSA checked with PCP next week. Sacroiliitis 04/18/2018 Chronic pain syndrome 04/18/2018 Spondylosis of lumbar region without myelopathy or radiculopathy 04/18/2018 CAD (coronary artery disease) 02/17/2018 GERD (gastroesophageal reflux disease) 8 Myocardial infarction 02/17/2018 Transient ischemic attack (TIA) 02/17/2018 Iliotibial band syndrome of left side 05/08/2016 Status post left knee replacement 03/22/2016 Primary osteoarthritis of left knee 01/23/2016 Social History Tobacco Use Types Packs/Day Years Used Date Smoking Tobacco: Former Cigarettes 1 20 Smokeless Tobacco: Former Quit: 1990 Alcohol Use Standard Drinks/Week Comments No 0 (1 standard drink = 0.6 oz pur e alcohol) PHQ-2 Answer Date Recorded PHQ-2 Score 0 02/06/2019 Personal Safety Answer Date Recorded Getting School Help Needed Not on file 08/05 Sex and Gender Information Value Date Recorded Sex Assigned at Not on file Legal Sex Male 6:17 AM SUPERVISOR STONE Gender Identity Not on file Sexual Orientation Not on file Last Filed Vital Signs Vital Sign Reading Time Taken Comments Blood Pressure 184/93 07/23/2022 10:51 AM SUPERVISOR STONE Pulse 57 05/22/2021 12:55 PM SUPERVISOR STONE Temperature 37.3 C (99.1 F) 05/26/2021 11:42 AM SUPERVISOR STONE Respiratory Rate 18 05/22/2021 12:55 PM SUPERVISOR STONE Oxygen Saturation 97% 05/27/2021 11:55 AM SUPERVISOR STONE Inhaled Oxygen Concentration - - Weight 71.2 kg (157 lb) 07/23/2022 10:51 AM SUPERVISOR STONE Height 172.7 cm (5' 8 ) 07/23/2022 10:51 AM SUPERVISOR STONE Body Mass Index 23.87 07/23/2022 10:51 AM SUPERVISOR STONE Plan of Treatment Not on file Goals Goal Patient Goal Type Associated Problems [...] programs, or options for improving home safety. Insurance FOR LIFE HU[employer] CHOICE MEDICARE PPO FOR LIFE [facility] HUMANA CHOICE MEDICARE PPO FOR LIFE Advance Directives For more information, please contact: [phone] * Full Code (Latest Code Status on File) Date Activated Date Inactivated Comments 02/17/2018 5:24 PM 02/18/2018 8:02 PM Care Teams Flying Ii Instructor Relationship Specialty Start Date End Date Rick Melissa MD [address] [facility] [address] [place] [address] PCP - General Cardiovascular Disease 01/16/18
--- OUTSIDE RECORDS SUMMARY | 2024-08-28 08:03 | XMS_ITS | Encounter Summary ---
Author Organization [facility] Address [address] [place] [address] Care Team Providers Care Personnel Research Scientist Name Role Phone Cassandra Gaona MD Primary Care Provider [phone] Ban Nguyen RN Unavailable [phone] Encounter Details Date Type Department Care Team ([facility] Contact Info) Description 10/29/2023 [employer] Message Enc [facility] THREE [facility], [address] [place], [place] [id number] Misha Clements MD Three [facility], [address] [place], [place] [id number] Type of Echocardiogram? Social History Tobacco Use Types Packs/Day Years [...] Sex Assigned at Male 07/22/2024 9:04 AM GOLD PROSPECTOR Legal Sex Male 1:11 PM GOLD PROSPECTOR Gender Identity Male 07/22/2024 9:04 AM GOLD PROSPECTOR Sexual Orientation Straight 07/22/2024 9: 04 AM GOLD PROSPECTOR documented as of this encounter Plan of Treatment Upcoming Encounters Date Type Department Care Team (Late st Contact Info) Description 09/07/2024 9:20 AM CDT Appointment [facility] Interventional Pain Management Center [address] [facility] [place] [address] [id number] Papo Greco, SHANK PAPERER 3 [facility] Nancy [place] [address] [place] [address] [phone] (Work) 10/21/2024 10:00 AM CDT Allied Health/Nurse Visit [facility] Multispecialty Care - [place] [address] [address] [place] [address] Cassandra Gaona MD [address] [place] [address] 11/30/2024 9:30 AM CDT Office Visit [facility] [address] Misha Clements MD Three [facility]., [address] [place] [address] 12/25/2024 10:40 AM CDT Office Visit [facility] Multispecialty Care - [facility] 3 [facility], [address] [place] [address] Khadijah Black NP 3 [facility] [address] [place] [address] documented as of this encounter Visit Diagnoses Not on filedocumented in this encounter Additional Health Concerns Assessment Noted Time PHQ-9 Depression Total Score: 1 08/28/19 24 9:17 AM CDT documented as of this encounter Care Teams Personnel Research Scientist Relationship Specialty Start Date End Date Cassandra Gaona MD [address] [place], [place] [address], [place] [address] PCP - General INTERNAL MEDICINE 07/15/23 Ban Nguyen RN [address] [place] [address] Manager Operations (Ambulatory) REGISTERED NURSE 12/23/2312/23/23 documented as of this encounter
--- OUTSIDE RECORDS SUMMARY | 2024-08-28 08:03 | XMS_ITS | Encounter Summary ---
Author Organization [facility] Address [address] [place] [address] Care Team Providers Care Product Management Specialist Name Role Phone Cassandra Gaona MD Primary Care Provider [phone] Encounter Details Date Type Department Care Team (Late st Contact Info) Description 04/16/2024 [employer] Message Enc [facility] Medical Group General Surgery [facility] [address] [facility], [address] [place] [address] [place] [address] [address] Sebaceous cyst of finger Social History Tobacco Use Types Packs/Day Years Used Date Smoking Tobacco: Former Cigarettes 1 15 0 06/17/1975 - 06/17/1990 Smokeless Tobacco: Former Quit: 02/23/1991 Comments:Counseled by Dr. Samanta hernández. Alcohol Use Standard Drinks/Week Comments Not Currently 0 (1 standard drink = 0.6 oz pur e alcohol) no alcohol since 2007 [place] Utilities Answer Date Recorded In the past [...] any time in the past 12 m [facility], were you homeless or living in a senior care (including now)? No 12/18/2023 Sex and Gender Information Value Date Recorded Sex Assigned at Male 07/22/2024 9:04 AM LAST PATTERN GRADER Legal Sex Male 1:11 PM LAST PATTERN GRADER Gender Identity Male 07/22/2024 9:04 AM LAST PATTERN GRADER Sexual Orientation Straight 07/22/2024 9: 04 AM LAST PATTERN GRADER documented as of this encounter Functional Status * Are you deaf or do you have serious difficulty hearing Answer Date of Assessment Author Status No 12/18/2023 5:43 PM YENIFERT Mika Greco RN Active * Are you [...] Info) Description 09/07/2024 9:20 AM CDT Appointment [facility] Interventional [place] [address] [id number] Papo Greco, ORE MIXER [address] [place] [address] [phone] (Work) 10/21/2024 10:00 AM CDT Allied Health/Nurse Visit [facility] Medical Group Multispecialty Care - [place] [address] [address] [place] [address] Cassandra Gaona MD [address] [place] [address] 11/30/2024 9:30 AM CDT Office Visit [facility] [address] Misha Clements MD Three [facility]., [address] [place] [address] 12/25/2024 10:40 AM CDT Office Visit [facility] Medical Group Multispecialty Care - [facility] 3 [facility], [address] [place] [address] Khadijah Black NP 3 [facility] [address] [place] [address] documented as of this encounter Visit Diagnoses Not on filedocumented in this encounter Additional Health Concerns Assessment Noted Time PHQ-9 Depression Total Score: 2 01/31/20 10:35 AM CDT documented as of this encounter Care Teams Product Management Specialist Relationship Specialty Start Date End Date Casasndra Gaona MD [address] [address] PCP - General INTERNAL MEDICINE 07/15/23 documented as of this encounter
--- OUTSIDE RECORDS SUMMARY | 2024-08-28 08:03 | XMS_ITS | Clinical Summary ---
Author Organization [facility] Medical Office Building [address] [place] [address] Care Team Providers Care Top Inventory Control Executive Name Role Phone Rick Melissa MD Primary Care Provider [phone] Allergies Active Allergy Reactions Criticality Noted Date [...] 07/23/2022 Assessment & Plan (07/23/2022 11:03 AM EEG TECHNICIAN): -On tamsulosin 0.4mg. Reports somewhat weak stream but overall happy with voiding pattern. -Denies gross hematuria, dysuria. -PVR low at 5 mL. PLAN: -Continue tamsulosin 0.4mg daily. Erectile dysfunction due to diseases classified elsewhere 07/23/2022 Assessment & Plan (07/23/2022 11:04 AM EEG TECHNICIAN): -Using trimix but not very often as he feels it causes some numbness around side of injection post use. -Viagra does work for him and thinking of using this mainly. PLAN: -Would recommend viagra use if working for him. Do not combine medications and use one or the other. Screening PSA (prostate specific antigen) 2022 Assessment & Plan (07/23/2022 11:04 AM EEG TECHNICIAN): -He has physical with his PCP next [...] 03/22/2016 Primary osteoarthritis of left knee 01/23/2016 Surgical History Surgery Date Site/Laterality Comments CORONARY ARTERY BYPASS GRAFT CAROTID ENDARTERECTOMY CARDIAC STENT PLACEMENT JOINT REPLACEMENT IR INJECTION ARTHROGRAM SI J OINT LEFT INCLUDES IMAGING GUIDANCE 03/26/2018 Left Medical History Medical History Date Comments CAD (coronary artery disease) GERD (gastroesophageal reflux disease) Myocardial infarct (HCC) Osteoarthritis Social History Tobacco Use Types Packs/Day Years [...] on file Legal Sex Male 6:17 AM EEG TECHNICIAN Gender Identity Not on file Sexual Orientation Not on file Obstetrics History Last Filed Vital Signs Vital Sign Reading Time Taken Comments Blood Pressure 184/93 07/23/2022 10:51 AM EEG TECHNICIAN Pulse 57 05/22/2021 12:55 PM EEG TECHNICIAN Temperature 37.3 C (99.1 F) 05/26/2021 11:42 AM EEG TECHNICIAN Respiratory Rate 18 05/22/2021 12:55 PM EEG TECHNICIAN Oxygen Saturation 97% 05/27/2021 11:55 AM EEG TECHNICIAN Inhaled Oxygen Concentration - - Weight 71.2 kg (157 lb) 07/23/2022 10:51 AM EEG TECHNICIAN Height 172.7 cm (5' 8 ) 07/23/2022 10:51 AM EEG TECHNICIAN Body Mass Index 23.87 07/23/2022 10:51 AM EEG TECHNICIAN Plan of Treatment Health Maintenance Due Date Last Done Comments Colon Cancer Screening-Colonoscopy 1950 Hepatitis C Screening 1950 DTaP/Tdap/Td Vaccine (1 - Tdap) 11/10/1959 Hepatitis B Screening 1966 Abdominal Aortic Aneurysm (A AA) Screen 2013 Well Visit 65+ 2013 Depression Screening 02/17/2019 02/17/2018 Fall Risk Assessment 04/18/2019 04/18/2018 Influenza Vaccine (#1) 2024 0, 04/07/2018, 03/02/2016, Additional history exists Pneumococcal vaccine 65+ Completed 07/25/2018, 07/18 Zoster Vaccine Completed 05/11/2023, 01/16, 07/28/2017 Goals Goal Patient Goal Type Associated Problems Recent Progress Patient-Stated? Author CCM Chronic Pain Care Plan Chronic Care Management Keri Larry, RN Note: Problem: Chronic Pain Goals: 1. Minimize further functional decline 2. Maximize quality of life 3. Control pain Strategies: - Activity/exercise program recommendation - Conservative stepwise pain medicine strategy with multi-disciplinary approach - Recommend healthy lifestyle strategies and compensatory methods as needed Reduce the likelihood of falling Lifestyle Beverley Still Note: Below are four things you can [...] on stairs Contact your local community or [facility] for information on exercise, fall prevention programs, or options for improving home safety. Insurance Nov[employer]act HUMANA CHOICE MEDICARE PPO FOR LIFE [employer] [facility] ADVANTRA HUMANA CHOICE MEDICARE PPO FOR LIFE Advance Directives For more information, please contact: [phone] * Full Code (Latest Code Status on File) Date Activated Date Inactivated Comments 02/17/2018 5:24 PM 02/18/2018 8:02 PM Care Teams Top Inventory Control Executive Relationship Specialty Start Date End Date Rick Melissa MD [address] [address] PCP - General Cardiovascular Disease 01/16/18
--- OUTSIDE RECORDS SUMMARY | 2024-08-28 08:03 | XMS_ITS | Encounter Summary ---
Author Organization [facility] - [facility] Address [address] [place] [address] Care Team Providers Care Mat Linker Name Role Phone Cassandra Gaona MD Primary Care Provider [phone] Ban Nguyen RN Unavailable [phone] Encounter Details Date Type Department Care Team (Late st Contact Info) Description 08/29/2023 Cyzone Message Enc [facility] Multispecialty Care [address] [place] [address] [employer], [facility] Provider Lab Results Social History Tobacco Use Types Packs/Day Years [...] Sex Assigned at Male 07/22/2024 9:04 AM AIRPORT RAMP AGENT Legal Sex Male 1:11 PM AIRPORT RAMP AGENT Gender Identity Male 07/22/2024 9:04 AM AIRPORT RAMP AGENT Sexual Orientation Straight 07/22/2024 9: 04 AM AIRPORT RAMP AGENT documented as of this encounter Plan of Treatment Upcoming Encounters Date Type Department Care Team (Late st Contact Info) Description 09/07/2024 9:20 AM CDT Appointment [facility] [place] [address] [id number] Papo Greco, SENIOR MARKETING DATA ANALYST 3 [facility] [address] [place] [address] [phone] (Work) 10/21/2024 10:00 AM CDT Allied Health/Nurse Visit [facility] Multispecialty Care - [place] [address] [address] [place] [address] Cassandra Gaona MD [address] [address] 11/30/2024 9:30 AM CDT Office Visit [facility] [address] Misha Clements MD Three [facility], [address] [place] [address] 12/25/2024 10:40 AM CDT [facility] [place] [facility] [address] [facility], [address] [place] [address] Khadijah Black, CUCO 3 [facility] [address] [place] [address] documented as of this encounter Visit Diagnoses Not on filedocumented in this encounter Additional Health Concerns Assessment Noted Time PHQ-9 Depression Total Score: 1 08/28/19 24 9:17 AM CDT documented as of this encounter Care Teams Mat Linker Relationship Specialty [place] [address] [place] [id number] PCP - General INTERNAL MEDICINE 07/15/23 Ban Nguyen, RN [address] [place] [address] [employer] Rol[employer] Winder (Ambulatory) REGISTERED NURSE 12/23/2312/23/23 documented as of this encounter
--- OUTSIDE RECORDS SUMMARY | 2024-08-28 08:03 | XMS_ITS | Encounter Summary ---
Author Organization [facility] Address [facility] [place] [address] Care Team Providers Care Last Chalker Name Role Phone Cassandra Gaona MD Primary Care Provider [phone] Encounter Details Date Type Department Care Team (Late st Contact Info) Description 02/15/2024 OrderWithMehart Message Enc [facility] Multispecialty Care - [place] [address] [place] [address] [address] [place], [place] [id number] Cassandra Gaona MD [address] [facility] [address] [place] [address] [employer] Social History Tobacco Use Types Packs/Day Years Used Date Smoking Tobacco: Former Cigarettes 1 15 0 06/17/1975 - 06/17/1990 Smokeless Tobacco: Former Quit: 02/23/1991 Comments:Counseled by Dr. Samanta hernández. Alcohol Use Standard Drinks/Week Comments Not Currently 0 (1 standard drink = 0.6 oz pur e alcohol) no alcohol since 2007 [facility] Utilities Answer Date Recorded In the [...] any time in the past 12 [facility], were you homeless or living in a senior care (including now)? No 12/18/2023 Sex and Gender Information Value Date Recorded Sex Assigned at Male 07/22/2024 9:04 AM PRE PRESS PROOFER Legal Sex Male 1:11 PM PRE PRESS PROOFER Gender Identity Male 07/22/2024 9:04 AM PRE PRESS PROOFER Sexual Orientation Straight 07/22/2024 9: 04 AM PRE PRESS PROOFER documented as of this encounter Functional Status [...] Info) Description 09/07/2024 9:20 AM CDT Appointment [facility] [place] [address] [id number] Papo Greco, PULLER OVER [address] [place] [address] [phone] (Work) 10/21/2024 10:00 AM CDT Allied Health/Nurse Visit [facility] Multispecialty Care - [place] [address] [address] [place] [address] Cassandra Gaona MD [address] [place] [phone] 11/30/2024 9:30 AM CDT Office Visit [facility] [address] Misha Clements MD Three [facility] [address] [place] [address] 12/25/2024 10:40 AM CDT Office Visit [facility] Multispecialty Care - [facility] 3 [facility], [address] [place] [address] Khadijah Black NP [address] [facility] [address] [place] [address] documented as of this encounter Visit Diagnoses Not on filedocumented in this encounter Additional Health Concerns Assessment Noted Time PHQ-9 Depression Total Score: 2 01/31/20 24 10:35 AM CDT documented as of this encounter Care Teams Last Chalker Relationship Specialty Start Date End Date Cassandra Gaona MD [address] [address] PCP - General INTERNAL MEDICINE 07/15/23 documented as of this encounter
== END 2024-08-28 07:55 | disposition home or self-care (01) ==
LOC: ANHAUDASC 07:56
PROVIDERS: Visit Provider Internal Medicine
DX: H91.90 Unspecified hearing loss, unspecified ear (principal)
CPT/HCPCS: 92557; 92567